=== PATIENT | female | born 1965 | race Caucasian/White ===

== ENCOUNTER → 2019-04-06 15:21 | Outpatient (CLI) | payer OTHER, SELFPAY ==
[2019-04-06 17:50] LABS: Absolute Lymphocyte Count 1.89 X10^3/uL (0.83-4.51); Absolute Neutrophil Count 2.4 X10^3/uL (2.0-7.7); Basophil# 0.03 X10^3/uL; Basophil% 0.6 % (0-1); Eosinophil# 0.31 X10^3/uL; Eosinophils% 5.9 % (0-5); Hematocrit 47.1 % (37-47); Hemoglobin 15.6 g/dL (12.0-15.0); Lymphocyte # 1.89 X10^3/ul (4.0); Lymphocyte % 36.1 % (19-41); Mean Corp Hgb Conc 33.1 g/dL (32-36); Mean Corpuscular Hgb 28.9 pg (27.0-32.0); Mean Corpuscular Volume 87.2 fL (81-99); Mean Platelet Vol. 10.3 fl (6.2-12.0); Monocyte# 0.57 X10^3/uL; Monocyte% 10.9 % (0-10); NRBC Flagged by Analyzer 0 % (0-5); Neutrophil # 2.41 X10^3/uL (2.7-7.7); Neutrophil % 46.1 % (47-70); Platelet Count 274 K/mm3 (150-450); RBC Distribution Width CV 13.6 % (11.6-14.6); RBC Distribution Width SD 43.1 fl (35.1-43.9); White Blood Count 5.2 K/mm3 (4.4-11.0)
[2019-04-06 18:11] LABS: AST(SGOT) 21 U/L (15-37); Alanine Aminotransfer ALT/SGPT 41 U/L (13-56); Albumin, Serum 4.3 g/dL (3.2-5.0); Alkaline Phosphatase 110 U/L (45-117); Anion Gap 3 (5-15); BUN 9 mg/dL (7-18); BUN/Creat Ratio 13.6 RATIO (10-20); Calcium,Total 9.6 mg/dL (8.5-10.1); Chloride 95 mmol/L (98-107); Creatinine, Serum 0.66 mg/dL (0.55-1.02); EST Glomerular Filtration Rate 98 mL/min (>60); Est Glom Filt Rate - Afr Amer 119 mL/min (>60); Globulin 4.3 g/dL (2.2-4.2); Glucose 80 mg/dL (74-106); Potassium 4.4 mmol/L (3.5-5.1); Protein, Total 8.6 g/dL (6.4-8.2); Sodium Level 129 mmol/L (136-145)
[2019-04-08 20:07] LABS: HEPATITIS B SURFACE AG Negative (Negative); Hepatitis A AB, Total Positive (Negative); Hepatitis A IgM Antibody Negative (Negative); Hepatitis B Core AB IgM Negative (Negative); Hepatitis B Core Ab Total Negative (Negative); Hepatitis C Ab 0.2 s/co ratio (0.0-0.9); QNTFERON TB Mitogen Value > 10.00 IU/mL (.); QNTFERON TB Nil Value 0.04 IU/mL (.); QNTFERON TB1+ Ag Value 0.04 IU/mL (.); QNTFERON TB2+ Ag Value 0.04 IU/mL (.)
[2019-04-08 20:27] LABS: Hep B Surface Antibodies Non Reactive (.); QNTIFERON TB Positive Criteria Negative (Negative)
== END ==
LOC: MTLAB 15:28
PROVIDERS: PCP Family Medicine; Referring Provider Dermatology; Visit Provider Dermatology
DX: L93.0 Discoid lupus erythematosus (principal); I73.00 Raynaud's syndrome without gangrene
CPT/HCPCS: 36415; 80053; 85025; 86480; 86704; 86705; 86706; 86708; 86709; 86803; 87340

== ENCOUNTER → 2019-05-19 16:25 | Outpatient (CLI) | payer OTHER, SELFPAY ==
[2019-05-19 17:56] LABS: Absolute Lymphocyte Count 1.87 X10^3/uL (0.83-4.51); Absolute Neutrophil Count 3.3 X10^3/uL (2.0-7.7); Basophil# 0.02 X10^3/uL; Basophil% 0.3 % (0-1); Eosinophil# 0.11 X10^3/uL; Eosinophils% 1.9 % (0-5); Hematocrit 44.1 % (37-47); Hemoglobin 14.2 g/dL (12.0-15.0); Lymphocyte # 1.87 X10^3/ul (4.0); Lymphocyte % 32.6 % (19-41); Mean Corp Hgb Conc 32.2 g/dL (32-36); Mean Corpuscular Hgb 28.3 pg (27.0-32.0); Mean Platelet Vol. 9.9 fl (6.2-12.0); Monocyte# 0.48 X10^3/uL; Monocyte% 8.4 % (0-10); NRBC Flagged by Analyzer 0 % (0-5); Neutrophil # 3.25 X10^3/uL (2.7-7.7); Neutrophil % 56.6 % (47-70); Platelet Count 259 K/mm3 (150-450); RBC Distribution Width CV 14.8 % (11.6-14.6); RBC Distribution Width SD 47.8 fl (35.1-43.9); Red Blood Count 5.01 M/mm3 (4.2-5.4); White Blood Count 5.7 K/mm3 (4.4-11.0)
[2019-05-19 18:43] LABS: AST(SGOT) 21 U/L (15-37); Alanine Aminotransfer ALT/SGPT 33 U/L (13-56); Alkaline Phosphatase 103 U/L (45-117); Anion Gap 7 (5-15); Bilirubin, Direct 0.11 mg/dL (0.00-0.30); CPK Total, Creatine Kinase 53 U/L (26-192); Chloride 100 mmol/L (98-107); Potassium 3.7 mmol/L (3.5-5.1); Sodium Level 134 mmol/L (136-145)
[2019-05-21 23:47] LABS: Anti-Jo <0.2 AI (0.0-0.9)
[2019-05-21 23:51] LABS: Aldolase 4.1 U/L (3.3-10.3)
== END ==
PROVIDERS: PCP Family Medicine; Referring Provider Dermatology; Visit Provider Dermatology
DX: M33.12 Other dermatomyositis with myopathy (principal)
CPT/HCPCS: 36415; 80051; 80076; 82085; 82550; 85025; 86235

== ENCOUNTER → 2023-07-17 | Outpatient (CLI) | payer OTHER, SELFPAY ==
--- NOTE | 2023-07-17 14:14 | NEURO ---
NCS and/or EMG Patient Report Ordering Doctor: Jose Salcedo DATE OF SERVICE: 07/17/23 Clinical Summary: 58 year old female with symptoms of numbness and tingling in the bilateral lower extremities - but most pronounced distally (i.e. feet). No history of foot drop. Nerve Conduction Studies Summary: The left sural distal latency was prolonged bilaterally. The left superficial peroneal SNAP was absent. The left peroneal-EDB CMAP distal latency is prolonged with reduced amplitude diffusely. The left peroneal motor conduction velocity is reduced diffusely. Needle Examination Summary: Needle examination of select muscles of the bilateral lower extremities demonstrated a higher proportion of motor unit action potentials with reduced recruitment, increased amplitude, increased duration, and polyphasia in the bilateral tibialis anterior and peroneus longus muscles bilaterally. 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 Chronic neurogenic changes seen in the bilateral tibialis anterior and peroneus longus muscles can be seen in the setting, but are not definitively diagnostic, of bilateral L5 radiculopathies. There is no definite electrodiagnostic evidence of a large-fiber peripheral polyneuropathy. Multi Select Codes Neurology Neurology Interp Codes: 29234-58 Musc test done w/n test comp (interp) (2) and 40839-66 Nrv cndj test 7-8 studies (interp)
== END | disposition home or self-care (01) ==
LOC: PSN 11:58
PROVIDERS: PCP Family Medicine; Referring Provider Family Medicine; Visit Provider Family Medicine
DX: G62.9 Polyneuropathy, unspecified (principal)
CPT/HCPCS: 95886; 95910

== ENCOUNTER → 2023-07-23 | Outpatient (CLI) | payer OTHER, SELFPAY ==
--- NOTE | 2023-07-23 14:50 | NEURO ---
NCS and/or EMG Patient Report Ordering Doctor: Jose Salcedo DATE OF SERVICE: 07/23/23 Edith presents for electrodiagnostic testing of the upper limbs. She reports intermittent pain from the elbow to the hand bilaterally. Electrodiagnostic Findings: Median motor nerve demonstrates normal distal latency, amplitude and conduction velocity bilaterally. Ulnar motor response demonstrates normal distal latency, amplitude and conduction velocity bilaterally. Normal median and ulnar F?waves. Needle EMG testing was performed in the upper limbs. All muscles tested showed no evidence of denervation with normal motor unit action potentials. Electrodiagnostic impression: This is a normal electrodiagnostic study of the upper limbs. There is no electrodiagnostic evidence for peripheral neuropathy, including carpal tunnel or cubital tunnel syndrome. There is no electrodiagnostic evidence for cervical radiculopathy. Multi Select Codes Neurology Neurology Interp Codes: 57502-75 Musc test done w/n test comp (interp) (2) and 84900-35 Nrv cndj test 13/> studies (interp)
== END | disposition home or self-care (01) ==
LOC: PSN 13:48
PROVIDERS: PCP Family Medicine; Referring Provider Family Medicine; Visit Provider Family Medicine
DX: G62.9 Polyneuropathy, unspecified (principal)
CPT/HCPCS: 95886; 95913

== ENCOUNTER → 2024-12-22 | Outpatient (CLI) | payer OTHER, SELFPAY ==
[2024-12-22 10:40] LABS: Hematocrit 43.2 % (37-47); Hemoglobin 14.4 g/dL (12.0-15.0); Mean Corp Hgb Conc 33.3 g/dL (32-36); Mean Corpuscular Volume 82.1 fL (81-99); Mean Platelet Vol. 10.8 fl (6.2-12.0); Platelet Count 279 K/mm3 (150-450); RBC Distribution Width CV 16.9 % (11.6-14.6); RBC Distribution Width SD 50.7 fl (35.1-43.9); Red Blood Count 5.26 M/mm3 (4.2-5.4); White Blood Count 5.1 K/mm3 (4.4-11.0)
[2024-12-22 12:30] LABS: AST(SGOT) 29 U/L (<=31); Alanine Aminotransfer ALT/SGPT 23 U/L (<=34); Albumin, Serum 4.6 g/dL (3.4-4.8); Alkaline Phosphatase 119 U/L (35-104); Anion Gap 14 (5-15); BUN 15 mg/dL (4-19); BUN/Creat Ratio 19.9 RATIO (10-20); Calcium,Total 9.7 mg/dL (7.6-11.0); Carbon Dioxide 22.3 mmol/L (21.0-32.0); Chloride 93 mmol/L (98-108); Cholesterol 230 mg/dL (<=200); Globulin 3.9 g/dL (2.2-4.2); Glucose 87 mg/dL (70-99); Low Density Lipoprotein Calc. 118 mg/dL; Magnesium 2.1 mg/dL (1.5-2.2); Potassium 4.4 mmol/L (3.3-5.1); Triglycerides 72 mg/dL; Very Low Density Lipoprotein 14 mg/dL (5-40); Vitamin B12 402 pg/mL (180-914); cholesterol:hdl ratio screen 2.36
[2024-12-25 22:07] LABS: Folate, Hemolysate Test 502.0 ng/mL (Not Estab.); Folate, RBC (Hct) Test 46.4 % (34.0-46.6); Folates, RBC Test 1082 ng/mL (>498); VITAMIN B6 5.6 ug/L (3.4-65.2); Vitamin B1, Thiamine 88.5 nmol/L (66.5-200.0)
[2024-12-27 14:08] LABS: ANTINUCLEAR ANTIBODIES DIRECT Positive (Negative); Anti-Chromatin 0.2 AI (0.0-0.9); Anti-Jo <0.2 AI (0.0-0.9); Anti-dsDNA Ab 2 IU/mL (0-9); SJOGREN'S Anti-SS-A test > 8.0 AI (0.0-0.9); SJOGREN'S Anti-SS-B test 3.8 AI (0.0-0.9); Vitamin D 1,25-Dihydroxy 31.0 pg/mL (24.8-81.5)
== END | disposition home or self-care (01) ==
LOC: MTLAB 08:18
PROVIDERS: PCP Physician Assistant Medical; Referring Provider Psychiatry & Neurology Neurology; Visit Provider Psychiatry & Neurology Neurology
DX: R20.2 Paresthesia of skin (principal); G62.9 Polyneuropathy, unspecified; I67.9 Cerebrovascular disease, unspecified
CPT/HCPCS: 36415; 80053; 80061; 82607; 82652; 82747; 83735; 83883; 84207; 84425; 84443; 85014; 85027; 85652; 86038; 86225; 86235

== ENCOUNTER → 2024-12-27 | Outpatient (CLI) | payer OTHER, SELFPAY ==
--- NOTE | 2024-12-27 09:50 | MRI_ITS ---
PROCEDURE: SPINE CERVICAL (ROUTINE) 12/27/2024 REASON FOR EXAM: NECK PAIN; POSSIBLE RADICULOPATHY TECHNIQUE: Procedure Code: MRISPC Modality: MR Procedure: SPINE CERVICAL (ROUTINE) Multiplanar and multisequence images were obtained without IV contrast administration. COMPARISON: None. FINDINGS: C2-C3: Vertebral bodies: Negative. Disk Space: Disc desiccation. Mild loss of disc height. Negative for Modic changes. Facet Joints: Mild bilateral facet joint hypertrophy. Neural foramina: Negative for neural foraminal narrowing Spinal Canal: Negative for central spinal narrowing. C3-C4: Vertebral bodies: Negative. Disk Space: Disc desiccation. Mild diffuse disc bulge. Negative for Modic changes. Facet Joints: Moderate left and mild right facet joint hypertrophy. Neural foramina: Moderate left and mild right neural foraminal narrowing Spinal Canal: Mild central spinal narrowing. C4-C5: Vertebral bodies: Negative. Disk Space: Disc desiccation. Mild diffuse disc bulge. Negative for Modic changes. Facet Joints: Moderate left and minimal right facet joint hypertrophy. Neural foramina: Moderate left and mild right neural foraminal narrowing Spinal Canal: Mild left central spinal narrowing. C5-C6: Vertebral bodies: Negative. Disk Space: Disc desiccation. Mild loss of disc height. Negative for Modic changes. Facet Joints: Moderate left and mild right facet joint hypertrophy. Neural foramina: Mild left and minimal right neural foraminal narrowing Spinal Canal: Negative for central spinal narrowing. C6-C7: Vertebral bodies: Negative. Disk Space: Disc desiccation. Mild diffuse disc bulge. Negative for Modic changes. Facet Joints: Mild bilateral facet joint hypertrophy. Neural foramina: Mild bilateral neural foraminal narrowing Spinal Canal: Mild central spinal narrowing. Spinal cord: Negative Posterior fossa and cerebellar tonsils negative. MRI/Spine Cervical (Routine) IMPRESSION: Multilevel degenerative changes of the cervical spine asymmetric to the left at C3-C4, C4-C5 and C5-C6 as above. Reading Location: [place] [id number]
--- NOTE | 2024-12-27 09:50 | MRI_ITS ---
PROCEDURE: SPINE CERVICAL (ROUTINE) 12/27/2024 REASON FOR EXAM: NECK PAIN; POSSIBLE RADICULOPATHY TECHNIQUE: Procedure Code: MRISPC Modality: MR Procedure: SPINE CERVICAL (ROUTINE) Multiplanar and multisequence images were obtained without IV contrast administration. COMPARISON: None. FINDINGS: C2-C3: Vertebral bodies: Negative. Disk Space: Disc desiccation. Mild loss of disc height. Negative for Modic changes. Facet Joints: Mild bilateral facet joint hypertrophy. Neural foramina: Negative for neural foraminal narrowing Spinal Canal: Negative for central spinal narrowing. C3-C4: Vertebral bodies: Negative. Disk Space: Disc desiccation. Mild diffuse disc bulge. Negative for Modic changes. Facet Joints: Moderate left and mild right facet joint hypertrophy. Neural foramina: Moderate left and mild right neural foraminal narrowing Spinal Canal: Mild central spinal narrowing. C4-C5: Vertebral bodies: Negative. Disk Space: Disc desiccation. Mild diffuse disc bulge. Negative for Modic changes. Facet Joints: Moderate left and minimal right facet joint hypertrophy. Neural foramina: Moderate left and mild right neural foraminal narrowing Spinal Canal: Mild left central spinal narrowing. C5-C6: Vertebral bodies: Negative. Disk Space: Disc desiccation. Mild loss of disc height. Negative for Modic changes. Facet Joints: Moderate left and mild right facet joint hypertrophy. Neural foramina: Mild left and minimal right neural foraminal narrowing Spinal Canal: Negative for central spinal narrowing. C6-C7: Vertebral bodies: Negative. Disk Space: Disc desiccation. Mild diffuse disc bulge. Negative for Modic changes. Facet Joints: Mild bilateral facet joint hypertrophy. Neural foramina: Mild bilateral neural foraminal narrowing Spinal Canal: Mild central spinal narrowing. Spinal cord: Negative Posterior fossa and cerebellar tonsils negative. MRI/Spine Cervical (Routine) IMPRESSION: Multilevel degenerative changes of the cervical spine asymmetric to the left at C3-C4, C4-C5 and C5-C6 as above. Reading Location: [place] [id number]
--- NOTE | 2024-12-27 11:07 | MRI_ITS ---
PROCEDURE: SPINE LUMBAR (ROUTINE) 12/27/2024 REASON FOR EXAM: LOW BACK PAIN; BILATERAL LUMBAR RADICULOPATHIES TECHNIQUE: T1, T2, stir, procedure Code: MRISPL Modality: MR Procedure: SPINE LUMBAR (ROUTINE) COMPARISON: None FINDINGS: The vertebral body alignment is maintained. There is 20% anterior compression deformity at T12 with chronic features. The lumbar vertebral body height is maintained. There is Modic fibrotic type endplate change at L4-5. Vertebral body marrow signal is otherwise normal. Intervertebral disc signal shows desiccation. The facets are aligned. The L1-L2 level: There is no significant disk protrusion. There is no lateral recess stenosis or foraminal stenosis. There is no critical central canal stenosis. The L2-L3 level: There is mild central and right and left paracentral disk protrusion. There is no lateral recess stenosis or foraminal stenosis. There is no critical central canal stenosis. The L3-L4 level: There is mild central, mild left paracentral, and left eccentric disk protrusion with increased signal in the margin of the disc consistent with a fissure. There is mild left lateral recess effacement. There is mild left foraminal stenosis. There is no critical central canal stenosis. The L4-L5 level: There is mild central and right and left paracentral disk protrusion. There is mild right lateral recess effacement. There is mild bilateral foraminal stenosis. There is no critical central canal stenosis. The L5-S1 level: There is mild central and right and left paracentral disk protrusion with increased signal in the margin of the disc consistent with a fissure. There is no lateral recess stenosis or foraminal stenosis. There is no critical central canal stenosis. The visualized conus shows normal signal characteristics. Adjacent soft tissues are unremarkable. MRI/Spine Lumbar (Routine) IMPRESSION: There is 20% anterior compression deformity at T12 with chronic features. There is no central canal stenosis, with lateral recess and foraminal narrowing . [facility]
--- NOTE | 2024-12-27 12:49 | ART_ITS ---
Reason For Study Reason For Study: Absent Lt Pedal Pulses Procedure A bilateral lower extremity continuous wave Doppler with analog waveform analysis and ankle brachial indexes. Left Segmental Pressures Left brachial= 170mmHg. Left posterior tibial artery = 89mmHg. Left dorsalis pedis artery = 89mmHg. Left digit = 82 mmHg. The left posterior tibial artery waveforms are biphasic. The left dorsalis pedis waveforms are biphasic. Right Segmental Pressures Right brachial= 166mmHg. Right posterior tibial artery = 179mmHg. Right dorsalis pedis artery = 180mmHg. Right digit = 128 mmHg. The right posterior tibial artery waveforms are triphasic. The right dorsalis pedis waveforms are triphasic. Indices The right ankle brachial index by the posterior tibial artery is 1.05. The right ankle brachial index by the dorsalis pedis is 1.06. The right digital-brachial index is 0.75. The left ankle brachial index by the posterior tibial artery is 0.52. The left ankle brachial index by the dorsalis pedis is 0.52. The left digital-brachial index is 0.48. VL/Ankle Brachial Index Interpretation Summary Triphasic Doppler waveforms are noted at ankle level on the right. Biphasic Dop pler waveforms are noted at ankle level on the left. Pulse-volume recordings appear diminished at ankle and digital lev el on the left. The resting right ankle- brachial index is normal. The resting left ankle-brachial index is moderately d iminished. The right digital-brachial index is normal. The left digital-brachial index is moderately diminished. There is no evidence of significant arterial occlusive disease in the right low er extremity. 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 Ordering Physician: Obdulia Wan Referring Physician: MEGAN FARAH MD Performed By: Vincenzo Jose RVT
== END | disposition home or self-care (01) ==
LOC: MRI 09:41
PROVIDERS: PCP Physician Assistant Medical; Referring Provider Psychiatry & Neurology Neurology; Visit Provider Psychiatry & Neurology Neurology
DX: M54.2 Cervicalgia (principal); M54.16 Radiculopathy, lumbar region; I73.9 Peripheral vascular disease, unspecified
CPT/HCPCS: 72141; 72148; 93922

== ENCOUNTER → 2025-01-06 | Outpatient (CLI) | payer OTHER, SELFPAY ==
--- OUTSIDE RECORDS SUMMARY | 2025-01-06 08:27 | XMS RPT_ITS | CCD ---
Author Organization [facility] Care Team Providers Care Ground Water Contractor Name Role Phone Jose Salcedo MD Unavailable Jose Salcedo MD Unavailable (Sams), Chris Khan Dermatology Unavailable Anurag microcomputer support specialist, . . Unavailable [facility] Unavailable Nicolasa SAFETY AND OCCUPATIONAL HEALTH MANAGER, Carleen Unavailable Jose R RAY, Rena Abreu Unavailable Emigdio SAFETY AND OCCUPATIONAL HEALTH MANAGER, Yenifer E Unavailable Unavailable Todd LORA, Taryn Unavailable Unavailable Tong SAFETY AND OCCUPATIONAL HEALTH MANAGER, Ceci Unavailable Unavailable Cat Rondon Unavailable Unavailable Alcon RN, Merissa L Unavailable Unavail able Lee SAFETY AND OCCUPATIONAL HEALTH MANAGER, Kulwant Unavailable Unavailable Reno EDWARDS, Evy Madrid Unavailable Unavaila ble Mutersbaugh SAFETY AND OCCUPATIONAL HEALTH MANAGER, Marivel K Unavailable Unavai luis Anguiano PA-C, Arabella Abreu Unavailable [phone] Liana SAFETY AND OCCUPATIONAL HEALTH MANAGER, Miranda Dunn Unavailable Unavailab evelin Yeh MA, Kulwant Unavailable Unavailable Odalis SAFETY AND OCCUPATIONAL HEALTH MANAGER, Marely Unavailable Unavailable Unavailable Unavailable Santana SAFETY AND OCCUPATIONAL HEALTH MANAGER, Eugenio Unavailable Unavailable Neurology Provider Unavailable Unavailable Dr. Jose Salcedo Primary Care Provider Dr. Jose Salcedo Referring Provider Dr. Jose Salcedo Other Provider Dr. Aj Julio Attending Provider [phone] Dr. Armen Rocha Attending Provider [phone] Amisha Godoy MD Unavailable BEREKET FLETCHER MD Primary Care Unavailable JOSE SALCEDO Consulting Unavailable BEREKET FLETCHER MD Admitting Unavailable BEREKET FLETCHER MD Attending Unavailable PROVIDER, UNKNOWN Consulting Unavailable PROVIDER, UNKNOWN Consulting Unavailable PROVIDER, UNKNOWN Consulting Unavailable JSOE SALCEDO Primary Care Unavailable JOSE SALCEDO Admitting Unavailable JOSE SALCEDO Attending Unavailable JOSE SALCEDO Consulting Unavailable PROVIDER, UNKNOWN Consulting Unavailable PROVIDER, UNKNOWN Consulting Unavailable PROVIDER, UNKNOWN Consulting Unavailable BEREKET FLETCHER MD Primary Care Unavailable BEREKET FLETCHER MD Admitting Unavailable JOSE SALCEDO Consulting Unavailable BEREKET FLETCHER MD Attending Unavailable PROVIDER, UNKNOWN Consulting Unavailable PROVIDER, UNKNOWN Consulting Unavailable PROVIDER, UNKNOWN Consulting Unavailable VACCARIELLO, AMISHA Attending Unavailable VACCARIELLO, AMISHA Primary Care Unavailable VACCARIELLO, AMISHA Admitting Unavailable JOSE SALCEDO Consulting Unavailable PROVIDER, UNKNOWN Consulting Unavailable PROVIDER, UNKNOWN Consulting Unavailable PROVIDER, UNKNOWN Consulting Unavailable KULWANT WAN Attending Unavailable KULWANT WAN Referring Unavailable KULWANT WAN Primary Care Unavailable JOSE SALCEDO Primary Care Unavailable BRANDI CONTRERAS Referring Unavailable JOSE SALCEDO Primary Care Unavailable BRANDI CONTRERAS Attending Unavailable Dr. Jose Salcedo MD Primary Care Physician Dr. Jose Salcedo MD Referring Provider Dr. Megan Farah MD Attending Physician Megan Farah Referring Unavailable Megan Farah Attending Unavailable Kulwant Jackson Primary Care Unavailable Megan Farah Attending Unavailable Kulwant Jackson Primary Care Unavailable Megan Farah Referring Unavailable Megan Farah Attending Unavailable Kulwant Jackson Primary Care Unavailable Megan Farah Referring Unavailable Megan Farah Attending Unavailable Jose Salcedo Referring Unavailable Jose Salcedo Primary Care Unavailable Allergies Allergy Classification Reported Allergen(s) Allergy Type Date of Onset Reaction(s) Facility Brompheniramine / Phenylephrine (3 sources) Brompheniramine / Phenylephrine Drug Allergy Itching, Difficulty breathing [facility] Doxycycline (3 sources) Doxycycline Drug Allergy [facility] Propofol (3 sources) Propofol Drug Allergy [facility] (20 sources) Brompheniramine / Phenylephrine Drug Allergy Itching, Difficulty breathing [facility].; [facility]. (20 sources) Doxycycline Drug Allergy 5 Rash [facility].; [facility]. (20 sources) Propofol Drug Allergy 5 Hives, Rash [employer]. (20 sources) Influenza Virus Vaccine *VACCINES* [facility].; [facility]. (1 source) Doxycycline Drug Allergy [facility] (1 source) Propofol Drug Allergy [facility] (1 source) COLD MEDICINE PLUS Drug allergy (disorder) [facility] (1 source) gabapentin Drug Allergy 5 Other [facility] Comment on above: Patient stated it m akes me feel like I was drunk (1 source) Doxycycline Drug Allergy 5 [facility] (1 source) gabapentin Drug Allergy 5 [facility] (1 source) Propofol Drug Allergy 5 [facility] Repository Medications Current Medications Medication Drug Class(es) Dates Sig (Normalized) Sig (Original) ALPRAZolam 1 mg oral tablet (20 sources) Benzodiazepine Start: 12-13-2024 take 1 tablet by mouth three times daily as needed Start: 09-27-2024 Xanax 1 mg tab let ; 1 Tablet tid for 0 days Quantity: 30 {Tablet} Refills: 0 Ordered: 27-Sep-2024 MD Jose Salcedo Start: 27-Sep-2024 Comments: 07/13/2024 Start: 08-25-2024 Xanax 1 mg tab let ; 1 Tablet tid for 0 days Quantity: 30 {Tablet} Refills: 0 Ordered: 25-Aug-2024 MD Jose Salcedo Start: 25-Aug-2024 Comments: 07/13/2024 Start: 09-19-2023 Xanax 1 mg tab let ; 1 Tablet tid for 0 days Quantity: 30 {Tablet} Refills: 0 Ordered: 13-Jul-2024 MD Jose Salcedo Start: 13-Jul-2024 Comments: [facility]07/13/2024 Start: 07-21-2023 Xanax 1 mg tab let ; 1 Tablet tid for 0 days Quantity: 30 {Tablet} Refills: 0 Ordered: 21-Jul-2023 MD Jose Salcedo Start: 21-Jul-2023 Comments: [facility]07/21/2023 Start: 02-18-2022 take 1 tablet by nell th three times daily Xanax 1 MG Oral Tablet ; 1 Tablet tid for 0 days Quantity: 30 {Tablet} Refills: 0 Ordered: 18-Feb-2022 MD Jose Salcedo Start: 18-Feb-2022 Comments: [facility] 02/18/2022w Comment on above: [facility] 02/18/2022 [facility]07/21/2023 [facility]104/04/2023 [facility]/13/2024 citalopram 10 mg oral tablet (20 sources) Serotonin Reuptake Inhibitor Start: End: take 1 tablet by mouth once daily Citalopram 10 mg tablet Discontinued 10 mg PO daily December 13, 2024 12:00am December 14, 2024 4:14pm Start: 10-18-2024 CeleXA 10 mg t ablet ; 1 Tablet qd for 0 days Quantity: 90 {Tablet} Refills: 0 Ordered: 18-Oct-2024 MD Amisha Godoy Start: 18-Oct-2024 Start: 02-03-2024 End: 07-13-2024 CeleXA 10 mg tablet ; 1 Tabl et qd for 0 days Quantity: 90 {Tablet} Refills: 1 Ordered: 13-Jul-2024 CL Howard Start: 03-Feb-2024 End: 13-Jul-2024 Status: Discontinued Start: 09-19-2023 CeleXA 10 mg t ablet ; 1 Tablet qd for 0 days Quantity: 90 {Tablet} Refills: 1 Ordered: 19-Sep-2023 MD Jose Salcedo Start: 19-Sep-2023 Start: 04-30-2023 CeleXA 10 mg t ablet ; 1 Tablet qd for 0 days Quantity: 90 {Tablet} Refills: 1 Ordered: 30-Apr-2023 MD Amisha Godoy Start: 30-Apr-2023 cyclobenzaprine hydrochlorid e 10 mg oral tablet (20 sources) Muscle Relaxant Start: 12-13-2024 take 1 tablet by mouth three times daily as needed Start: 09-27-2024 cyclobenzaprin e 10 mg tablet ; 1 (one) Tablet tid prn back pain for 0 days Quantity: 30 {Tablet} Refills: 0 Ordered: 27-Sep-2024 MD Jose Salcedo Start: 27-Sep-2024 Start: 08-20-2024 cyclobenzaprin e 10 mg tablet ; 1 (one) Tablet tid prn back pain for 0 days Quantity: 30 {Tablet} Refills: 0 Ordered: 20-Aug-2024 FLOR Rondon Start: 20-Aug-2024 Start: 05-04-2024 cyclobenzaprin e 10 mg tablet ; 1 (one) Tablet tid prn back pain for 0 days Quantity: 30 {Tablet} Refills: 0 Ordered: 13-Jul-2024 MD Jose Salcedo Start: 13-Jul-2024 Start: 02-03-2024 cyclobenzaprin e 10 mg tablet ; 1 (one) Tablet tid prn back pain for 0 days Quantity: 30 {Tablet} Refills: 0 Ordered: 03-Feb-2024 MD Jose Salcedo Start: 03-Feb-2024 Start: 09-19-2023 cyclobenzaprin e 10 mg tablet ; 1 (one) Tablet tid prn back pain for 0 days Quantity: 30 {Tablet} Refills: 0 Ordered: 24-Nov-2023 MD Jose Salcedo Start: 24-Nov-2023 Start: 01-31-2023 End: 05-30-2023 cyclobenzaprine 10 mg tablet ; 1 (one) Tablet tid prn back pain for 0 days Quantity: 10 {Tablet} Refills: 0 Ordered: 30-May-2023 MD Jose Salcedo Start: 31-Jan-2023 End: 30-May-2023 Status: Inactive DULoxetine 30 mg delayed release oral capsule (1 source) Serotonin and Norepinephrine Reuptake Inhibitor Start: 12-14-2024 take 1 capsule by mouth at bedtime Start: 12-14-2024 take 1 capsule by mouth at bed time fluconazole 150 mg oral tablet (5 sources) Azole Antifungal Start: 09-27-2024 fluconazole 1 50 mg tablet ; 1 (one) tablet at onset of yeast symptoms for 0 days Quantity: 1 {Tablet} Refills: 2 Ordered: 27-Sep-2024 MD Jose Salcedo Start: 27-Sep-2024 sodium chloride 1000 mg oral tablet (2 sources) Start: 12-13-2024 Start: 12-13-2024 End: 12-13-2024 Sodium Chloride 1,000 mg tab let,soluble Discontinued 1000 mg PO 1 to 4 times daily as needed December 13, 2024 12:00am December 13, 2024 9:22am 7 tablets take 3 tab daily started on 12-13-24 triamcinolone acetonide 1 mg /ml topical cream (14 sources) Corticosteroid Start: 12-13-2024 Start: 07-13-2024 apply 1 g topically twice daily as needed triamcinolone acetonide 0.1 % topical ointment ; 1 (one) gram apply bid prn for 0 days Quantity: 454 {Gram} Refills: 2 Ordered: 13-Jul-2024 MD Jose Salcedo Start: 13-Jul-2024 Completed/Discontinued Medications Medication Drug Class(es) Dates Sig (Normalized) Sig (Original) amLODIPine 10 mg oral tablet (20 sources) Dihydropyridine Calcium Channel Shoshana Start: 11-24-2023 End: 07-13-2024 amLODIPine 10 mg tablet ; 1 (one) Tablet qd for 0 days Quantity: 90 {Tablet} Refills: 1 Ordered: 13-Jul-2024 CL Howard Start: 24-Nov-2023 End: 13-Jul-2024 Status: Discontinued Start: 09-19-2023 amLODIPine 10 mg tablet ; 1 (one) Tablet qd for 0 days Quantity: 90 {Tablet} Refills: 1 Ordered: 19-Sep-2023 MD Jose Salcedo Start: 19-Sep-2023 Start: 04-30-2023 amLODIPine 10 mg tablet ; 1 (one) Tablet qd for 0 days Quantity: 90 {Tablet} Refills: 1 Ordered: 30-Apr-2023 MD Amisha Godoy Start: 30-Apr-2023 amoxicillin 875 mg / clavulanate 125 mg oral tablet (20 sources) Penicillin-class Antibacterial Start: 07-21-2023 End: 07-31-2023 amoxicillin 875 mg-potassium clavulanate 125 mg tablet ; 1 (one) tablet two times daily for 10 days Quantity: 20 {Tablet} Refills: 0 Ordered: 21-Jul-2023 CL Gaines Miranda Dunn Start: 21-Jul-2023 End: 31-Jul-2023 Status: Inactive azithromycin 250 mg oral tablet (20 sources) Macrolide Antimicrobial Start: 01-14-2011 End: 07-08-2011 ZITHROMAX Z-PRABHAKAR, 250MG (Oral Tablet) ; 2 (two) Tabs day one, then one daily for 4 days for 0 days Quantity: 1 {Z-pack} Refills: 0 Ordered: 08-Jul-2011 MD Jose Salcedo Start: 14-Jan-2011 End: 08-Jul-2011 Status: Inactive cephalexin 500 mg oral capsule (20 sources) Cephalosporin Antibacterial Start: 01-03-2020 End: 01-13-2020 take 2 capsules by mouth twice daily Cephalexin 500 MG Oral Capsule ; 2 (two) Capsule bid for 10 days Quantity: 40 {Capsule} Refills: 0 Ordered: 03-Jan-2020 MD Jose Salcedo Start: 03-Jan-2020 End: 13-Jan-2020 Status: Inactive lisinopril 20 mg oral tablet (20 sources) Angiotensin Converting Enzyme Inhibitor Start: 11-24-2018 End: 05-03-2019 take 1 tablet by mouth once daily Lisinopril 20 MG Oral Tablet ; 1 (one) Tablet daily for 0 days Quantity: 90 {Tablet} Refills: 3 Ordered: 03-May-2019 MD Jose Salcedo Start: 24-Nov-2018 End: 03-May-2019 Status: Inactive Problems Active Problems Problem Classification Problem Date Documented Da te Episodic/Chronic Administrative/social admission (20 sources) Issue of repeat prescriptions 02-22-2019 Episodic Allergic reactions (20 sources) Inflammatory dermatosis; Translations: [Dermatitis, unspecified] 09-21-2021 Episodic Anxiety disorders (20 sources) Anxiety; Translations: [Anxiety disorder, unspecified] Onset: 12-06-2024 10-14-2022 Chronic Essential hypertension (20 sources) Benign essential hypertension; Translations: [Essential (primary) hypertension] Onset: 12-06-2024 10-14-2022 Chronic Fluid and electrolyte disorders (20 sources) Hyponatremia; Translations: [Hypo-osmolality and hyponatremia] 10-14-2022 Episodic Genitourinary symptoms and ill-defined conditions (20 sources) Female stress incontinence; Translations: [Stress incontinence (female) (male)] 10-14-2022 Chronic Immunizations and screening for infectious disease (20 sources) Requires measles, mumps and rubella vaccination; Translations: [Encounter for immunization] 02-22-2019 Episodic Malaise and fatigue (20 sources) Malaise and fatigue; Translations: [Other malaise] 02-22-2019 Episodic Mood disorders (20 sources) Depressive disorder; Translations: [Depressive disorder, not elsewhere classified] 02-22-2019 Chronic Mood disorders (1 source) Mood disorders; Translations: [Depression, unspecified] Onset: 12-06-2024 Mycoses (10 sources) Candidiasis of vagina; Translations: [Candidiasis of vulva and vagina] 09-27-2024 Episodic Nonmalignant breast conditions (20 sources) Lump in left breast; Translations: [Unspecified lump in the left breast, unspecified quadrant] 10-14-2022 Episodic Other aftercare (20 sources) Long-term (current) use of other medications 02-22-2019 Episodic Other and ill-defined cerebrovascular disease (2 sources) Cerebrovascular disease; Translations: [Cerebrovascular disease, unspecified] 12-13-2024 Chronic Other and ill-defined cerebrovascular disease (2 sources) Cerebrovascular disease, unspecified; Translations: [Cerebrovascular disease, unspecified] Onset: 12-13-2024 Chronic Other and unspecified benign neoplasm (20 sources) Polyp of colon; Translations: [Polyp of colon] 10-14-2022 Episodic Other circulatory disease (20 sources) Elevated blood pressure reading without diagnosis of hypertension 11-28-2010 Episodic Other circulatory disease (1 source) Foot pulse absent; Translations: [Other specified symptoms and signs involving the circulatory and respiratory systems] 12-13-2024 Episodic Other circulatory disease (1 source) Other specified symptoms and signs involving the circulatory and respiratory systems; Translations: [Other specified symptoms and signs involving the circulatory and respiratory systems] Onset: 12-27-2024 Episodic Other ear and sense organ disorders (20 sources) Impacted cerumen in left ear; Translations: [Impacted cerumen, left ear] 02-01-2019 Episodic Other gastrointestinal disorders (20 sources) Stool DNA-based colorectal cancer screening positive; Translations: [Other fecal abnormalities] 11-12-2019 Episodic Other injuries and conditions due to external causes (20 sources) At risk for falls ; Translations: [History of falling] 09-19-2023 Episodic Other injuries and conditions due to external causes (20 sources) Injury of left foot; Translations: [Unspecified injury of left foot, initial encounter] 11-16-2023 Episodic Other nervous system disorders (20 sources) Neuropathy; Translations: [Polyneuropathy, unspecified] 05-30-2023 Chronic Other nervous system disorders (1 source) Polyneuropathy; Translations: [Polyneuropathy, unspecified] 12-13-2024 Chronic Other nervous system disorders (2 sources) Paresthesia; Translations: [Paresthesia of skin] 12-13-2024 Episodic Other nervous system disorders (2 sources) Paresthesia of skin; Translations: [Paresthesia of skin] Onset: 12-27-2024 Episodic Other non-traumatic joint disorders (1 source) Pain in right knee; Translations: [Pain in right knee] Onset: 09-22-2024 Episodic Other non-traumatic joint disorders (1 source) Effusion, right knee; Translations: [Effusion, right knee] Onset: 09-22-2024 Episodic Other screening for suspected conditions (not mental disorders or infectious disease) (20 sources) Breast neoplasm screening status; Translations: [Encounter for screening mammogram for malignant neoplasm of breast] Onset: 12-06-2024 10-14-2022 Episodic Other skin disorders (20 sources) Eruption; Translations: [Rash and other nonspecific skin eruption] 02-22-2019 Episodic Other upper respiratory infections (20 sources) Sinusitis; Translations: [Chronic sinusitis, unspecified] 01-03-2020 Chronic Other upper respiratory infections (20 sources) Acute sinusitis; Translations: [Acute sinusitis, unspecified] 02-22-2019 Episodic Otitis media and related conditions (20 sources) Disorder of left tympanic membrane; Translations: [Unspecified disorder of tympanic membrane, left ear] 02-22-2019 Episodic Peripheral and visceral atherosclerosis (1 source) Peripheral vascular disease, unspecified; Translations: [Peripheral vascular disease, unspecified] Onset: 12-27-2024 Chronic Residual codes; unclassified (20 sources) Influenza vaccination declined; Translations: [Immunization not carried out because of patient refusal] 10-14-2022 Episodic Residual codes; unclassified (20 sources) Mammogram declined; Translations: [Procedure and treatment not carried out because of patient's decision for unspecified reasons] 10-14-2022 Episodic Rheumatoid arthritis and related disease (1 source) Rheumatoid arthritis with rheumatoid factor of multiple sites without organ or systems involvement; Translations: [Rheumatoid arthritis with rheumatoid factor of multiple sites without organ or systems involvement] Onset: 12-06-2024 Chronic Screening and history of mental health and substance abuse codes (20 sources) Patient encounter status; Translations: [Encounter for screening for depression] 10-14-2022 Episodic Spondylosis; intervertebral disc disorders; other back problems (20 sources) Low back pain; Translations: [Lumbago] Onset: 12-27-2024 10-14-2022 Episodic Substance-related disorders (20 sources) Tobacco dependence syndrome; Translations: [Nicotine dependence, unspecified, uncomplicated] Onset: 12-06-2024 10-14-2022 Chronic Unclassified (20 sources) Number of Children 02-28-2020 Comment on above: 1. Unclassified (20 sources) Number of Pregnancies 02-28-2020 Comment on above: 1. Unclassified (20 sources) Vaginal deliveries 02-28-2020 Comment on above: 1. Unclassified (20 sources) Follow Up for Multiple Chronic Conditions - The patient is here for follow-up of anxiety and hypertension. The patient always takes the prescribed medications. No side effects noted (does not need refills). The patient has an active lifestyle but no regular exercise program. The patient's out of office blood pressure checks occur occasionally and dietary compliance is fairly good usually adhering to recommendations. The patient states that there is no recent angina or dyspnea, weight has decreased (down 13 pounds) and headaches are rarely noted. 03-04-2022 Unclassified (20 sources) Follow Up for Multiple Chronic Conditions - The patient is here for follow-up of anxiety and hypertension. The patient always takes the prescribed medications. No side effects noted (needs refills). The patient has low activity level and no regular exercise program. The patient's out of office blood pressure checks occur occasionally and dietary compliance is fairly good usually adhering to recommendations. The patient states that there is no recent angina or dyspnea (had chest pain 2 days ago but had extreme stress at the time. Is doing well now.), weight has increased (up 6 pounds) and they do not have headaches. Note for Multiple chronic conditions follow-up: reviewed by [facility] 10-17-2020 Unclassified (20 sources) Follow up for multiple chronic conditions - The patient is here for follow-up of anxiety and hypertension. The patient always takes the prescribed medications. No side effects noted (would like printed Rx's to take with her). The patient has low activity level and no regular exercise program. The patient's out of office blood pressure checks occur rarely and dietary compliance is fairly good usually adhering to recommendations. The patient states that there is no recent angina or dyspnea, there are no vision changes or weakness, weight has decreased (9lbs), depression has worsened (would like to discuss getting back on an anti-depressant. Was previously taken off her depression medication due to being put on a medication for lupus but is no longer taking the medication for lupus, so she would like to start back on anti-depressant.) and they do not have headaches. Note for Multiple chronic conditions follow-up: reviewed by [facility] 09-24-2019 Unclassified (20 sources) [ADDITIONAL REASON] Transition into care - The patient is transitioning into care from another physician (03/2019 Dermatology, 09/10/[address] Vora) and a summary of care was reviewed. 09-24-2019 Unclassified (20 sources) Follow Up for Multiple Chronic Conditions - The patient is here for follow-up of hypertension and depression. The patient always takes the prescribed medications. No side effects noted (Needs refills.). The patient engages in regular exercise program 3-5 times per week (walks). The patient's out of office blood pressure checks occur occasionally (134/84 was last home reading.) and dietary compliance is fairly good usually adhering to recommendations. The patient states that weight has decreased (Down 5 pounds.), in general mood has improved and headaches have been noticed occasionally. Note for Multiple chronic conditions follow-up: reviewed by [facility] 10-05-2013 Unclassified (20 sources) [ADDITIONAL REASON] Cold Symptoms - Symptoms include sneezing, nasal congestion, runny nose, purulent discharge, ear fullness, sore throat (improved), productive cough, chills, general malaise and headache, but do not include fever. The onset was sudden 4 day(s) ago. The symptoms occur constantly. The patient describes this as moderate in severity and worsening. Note for Upper respiratory infection: reviewed by [facility] 10-05-2013 Unclassified (20 sources) Follow Up for Multiple Chronic Conditions - The patient is here for follow-up of hypertension and depression. The patient always takes the prescribed medications. No side effects noted (Needs refills.). The patient has an active lifestyle but no regular exercise program. The patient's out of office blood pressure checks occur rarely and dietary compliance is fairly good usually adhering to recommendations. The patient states that weight has increased (Up 5 pounds.), in general mood has improved and headaches have been noticed occasionally. Note for Multiple chronic conditions follow-up: reviewed by [facility] 01-22-2012 Unclassified (20 sources) Follow Up for Multiple Chronic Conditions - The patient is here for follow-up of depression. The patient always takes the prescribed medications. No side effects noted. The patient has an active lifestyle but no regular exercise program. The patient states that mood is unchanged (Has had increased stress since February.). Note for Follow Up for Multiple Chronic Conditions: Pt is under a great deal of family stress yet is only on 1/2 citalopram tab and generally only takes 1 xanax per day. 11-28-2010 Unclassified (20 sources) Follow up for multiple chronic conditions - The patient is here for follow-up of anxiety and hypertension. The patient always takes the prescribed medications. No side effects noted. The patient has low activity level and no regular exercise program. The patient states that the disease has moderate impact on recreation. Note for Multiple chronic conditions follow-up: Pt needs referral neurology per Rheumatology reviewed by [facility] 05-30-2023 Unclassified (9 sources) Transition into care - The patient is transitioning into care from another physician (03/2019 Dermatology, 09/10/[address] Vora) and a summary of care was reviewed. 09-24-2019 Unclassified (9 sources) [ADDITIONAL REASON] Follow up for multiple chronic conditions - The patient is here for follow-up of anxiety and hypertension. The patient always takes the prescribed medications. No side effects noted (would like printed Rx's to take with her). The patient has low activity level and no regular exercise program. The patient's out of office blood pressure checks occur rarely and dietary compliance is fairly good usually adhering to recommendations. The patient states that there is no recent angina or dyspnea, there are no vision changes or weakness, weight has decreased (9lbs), depression has worsened (would like to discuss getting back on an anti-depressant. Was previously taken off her depression medication due to being put on a medication for lupus but is no longer taking the medication for lupus, so she would like to start back on anti-depressant.) and they do not have headaches. Note for Multiple chronic conditions follow-up: reviewed by [facility] 09-24-2019 Unclassified (14 sources) Cold Symptoms - Symptoms include sneezing, nasal congestion, runny nose, purulent discharge, ear fullness, sore throat (improved), productive cough, chills, general malaise and headache, but do not include fever. The onset was sudden 4 day(s) ago. The symptoms occur constantly. The patient describes this as moderate in severity and worsening. Note for Upper respiratory infection: reviewed by [facility] 10-05-2013 Unclassified (14 sources) [ADDITIONAL REASON] Follow Up for Multiple Chronic Conditions - The patient is here for follow-up of hypertension and depression. The patient always takes the prescribed medications. No side effects noted (Needs refills.). The patient engages in regular exercise program 3-5 times per week (walks). The patient's out of office blood pressure checks occur occasionally (134/84 was last home reading.) and dietary compliance is fairly good usually adhering to recommendations. The patient states that weight has decreased (Down 5 pounds.), in general mood has improved and headaches have been noticed occasionally. Note for Multiple chronic conditions follow-up: reviewed by [facility] 10-05-2013 Unclassified (1 source) Low back pain, unspecified; Translations: [Low back pain, unspecified] Onset: 12-27-2024 Past or Other Problems Problem Classification Problem Date Documented Da te Episodic/Chronic Unclassified (20 sources) Well Adult, female - The patient feels well with minor complaints (continues with low back pain. Has been improving slightly. Going to chiropractor.), has good energy level and is sleeping well. The patient has a balanced diet and takes no supplemental vitamins & iron. The patient does not exercise. The patient sleeps 7 hours per night. Note for Well Adult, female: reviewed by [facility] 10-14-2022 Unclassified (20 sources) Rash - The rash has been occurring for 1 day. The rash is characterized as red. The rash was first seen on the trunk, the back and the lower extremity. There has been associated itching. Note for Rash: Had colonoscopy yesterday and rash started at 4pm. Otherwise no new meds or skin care products. Has has 2 other colonoscopies in the past without issue. Had a similar reaction to doxycycline 1 year ago and her derm (Dr. Ivey) gave her a shot of triamcinolone.No trouble breathing or swallowing. 09-21-2021 Unclassified (20 sources) Well Adult, female - The patient feels well with minor complaints (fell down steps last week, continues with back pain.), has good energy level and is sleeping well. The patient has a balanced diet and takes no supplemental vitamins & iron. The patient does not exercise. The patient sleeps 8 hours per night. 06-25-2021 Unclassified (20 sources) Well adult female - The patient does not feel well (she has lupus. Some days is having alot of body pain/aches.), has decreased energy level and is sleeping well (will have trouble sleeping some nights but takes xanax and that will help her sleep). The patient has a balanced diet and takes no supplemental vitamins & iron. The patient does not exercise. The patient sleeps 8 (at least 8 hours a night) hours per night. Note for Well adult female: Package Winder is recommending patient to have pap test.Patient had a colonoscopy in November, during which they found multiple polyps, and she was told to follow up for another colonoscopy in 6 months.Patient's last mammogram was in 2019. Patient refuses mammogram today.Patient is due for a dental cleaning and annual eye exam. 02-28-2020 Unclassified (20 sources) Cold Symptoms - Symptoms include nasal congestion, runny nose, ear fullness (ear pressure and ears sore), scratchy throat (irritated), hoarseness, general malaise, headache and facial pain (sinus pain and pressure), but do not include dry cough or fever. The onset was 5 day(s) ago. The symptoms occur constantly. The patient describes this as unchanged. Current treatment includes Aleve. Medical history includes seasonal allergies and recurrent sinusitis. Note for Upper respiratory infection: Has red sore spots on the roof of her mouth. reviewed by [facility] 01-03-2020 Unclassified (20 sources) Ear fullness - L ear feels plugged. Was here a few weeks back and instructed to use ear drops. Has went through 3 bottles with no relief. She seen derm 1 week ago and informed she has skin lupus around her ear. She had a spot removed from her hand and the Brand Marketing Specialist feels she may have a lesion in her ear behind the wax causing her issues as well. reviewed by [facility] 02-22-2019 Unclassified (20 sources) Ear - Patient is here today with a concern of left ear fullness and pressure for the past 2 weeks. Is getting worse. Denies having ear pain. Does feel sinus pressure on the left side of face. Neck and shoulder hurts. Denies having other cold symptoms. Has decreased hearing. Has a roaring sound of the left ear. reviewed by [facility] 02-01-2019 Unclassified (20 sources) Well Adult, female - The patient feels well with minor complaints, has decreased energy level (has increased stress) and is sleeping well. The patient has a balanced diet and takes no supplemental vitamins & iron. The patient does not exercise. The patient sleeps 7 hours per night. Note for Well Adult, female: She recently had some skin bxs at derm and is awaiting results. 11-24-2018 Unclassified (20 sources) Rash - The rash has been occurring in a persistent pattern for 1 month (About 2 months ago, pt had a sunburn. Noticed a harder whitish lump on the left side of anterior chest. About 1 month ago, started to have a few more raised red areas with spreading redness of the chest). The course has been increasing. The rash is characterized as red. It spread to the neck. There has been associated itching (when are is exposed to heat or if she is nervous). Note for Rash: Usually uses Marquez natural bar soap and lotion. Did try a different bar soap but then went to back to the bar soap she was originally using.Has tried apply lotion, rubbing alcohol and antibiotic suave to the chest. reviewed by [facility] 11-04-2018 Unclassified (20 sources) Well Adult, female - The patient feels well with minor complaints (Is concerned about elevated blood pressures. Has had increased stress.), has decreased energy level and is sleeping well. The patient has a balanced diet and takes no supplemental vitamins & iron. The patient does not exercise. The patient sleeps 7 hours per night. Note for Well Adult, female: reviewed by [facility] 11-12-2017 Unclassified (20 sources) Well Adult, female - The patient feels well with minor complaints (Pt here for well adult. Had parti al hysterectomy in 2008 and no periods since then. Pt has been fasting. Last Lipid/CMP was 09/2015. Pts concern today is that she has urinary frequency and leaking of urine. Has to wear a pad daily. When she urinates she has quite a bit of abdomnal pressure and takes awhile for her to completely empty bladder. Urine today was normal.). The first day of the last menstrual period was : (2008.). The patient is not using any method of contraception at this time. The patient has a balanced diet and takes no supplemental vitamins & iron. The patient exercises none (but does enjoy ealking some.). The patient sleeps 8 hours per night. 10-28-2016 Unclassified (20 sources) Well Adult, female - The patient feels well with minor complaints, has good energy level and is sleeping well (has a hard time falling asleep). The patient has a balanced diet and takes no supplemental vitamins & iron. The patient exercises daily (walks). The patient sleeps 6 hours per night. Note for Well Adult, female: Has been taking half doses of medication. reviewed by [facility] 08-30-2015 Unclassified (20 sources) Rash - The onset of the rash has been gradual and has been occurring in a persistent pattern for 3 days. Note for Rash: Pt states that she has been itching and burning on left buttock. Does have scally dried area on upper left buttock with very tiny red spots scattered. States that she had shingles about 10 years ago and was afraid she was getting them again. Rash does not bother pt during day except for some slight itching but is worse at night with itching and burning. Has been using vicks vapor rub to area which does help the itching. She either felt she just has some dry skin back there ofr start og shingles. reviewed by [facility] 06-04-2013 Unclassified (20 sources) Cold Symptoms - Symptoms include sneezing, nasal congestion, runny nose, productive cough (Productive of thick yellow sputum and blowing out the same.), fever (Never actually took temperature but has had the chills and sweats.) and general malaise. The onset was sudden 10 day(s) ago (Started mainly with s/t and earache but no longer have those.). The patient describes this as worsening. Current treatment includes none (but has been using something similiar to a Aspen Pot.). Risk factors include smoking. Note for Upper respiratory infection: No previous history of getting these very often. reviewed by [facility] 01-29-2013 Unclassified (20 sources) ER F/U - Pt here for ER f/u due to malaise and faitgue. BP also elevated. BP today is 176/103. Is not currently on any BP medication. Pt thinks she may have a bug. Had been coughing some phlegm- clear and nasal congestion and s/twhich started about 2 weeks. Still is not feeling up to par. Still coughing and still has some nasal congestion and drainage. No fever today. 96.8 .May have had fever 2 weeks ago but didn't take temp. Son is similarly ill. 01-14-2011 Unclassified (20 sources) Recheck neuropathy - Complains of tingling and numbness in both arms and legs and getting worse. Asking for referral to neurology. She gets 2-3 spells per week where she gets pain starting in hands and feet then move up proximally stopping at about the level of knees and elbows. It last for 6-8 hrs. No known triggers. 06-30-2023 Unclassified (20 sources) Well adult female - The patient feels well with no complaints. The patient has a balanced diet. The patient does not exercise. The patient sleeps 8 hours per night. 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 She said her feet hurt very bad, and she has arthritis in her hip and back. All of her joints hurt but yet she was told its not a rheumatologic disorder Patient said she has seen Rheumatology and neurology and never seems to get an answer She has not yet applied for disability. She is worked up and embarrassed and she has worked her whole life She also wants a refill of triamcinolone acetonide ointment 0.1% cream, she got it from a different doctor years ago and she likes using it on spots she gets from time to time reviewed by [facility] 07-13-2024 Results Test Name Value Interpretation Reference Range Facility MARIA VICTORIA w/ Reflex Mult Confirmon 12-27-2024 MARIA VICTORIA,DIRECT Positive Abnormal Negative [facility] Comment on above: Performed By: #### L 100.0500, L500.4050, L3100.1725, L500.4100, L101.9900, L501.5200, L3300.8000, L3300.0960, L3300.8200, L501.9520, L3100.5450, L3130.0010, L503.0106 #### [facility] [address] [place], [place], [phone] ANTI-DNA (DS)AB 2 IU/mL Normal 0-9 [facility] Comment on above: Result Comment: Nega tive <5 Equivocal 5 - 9 Positive >9 Performed By: #### L 100.0500, L500.4050, L3100.1725, L500.4100, L101.9900, L501.5200, L3300.8000, L3300.0960, L3300.8200, L501.9520, L3100.5450, L3130.0010, L503.0106 #### [facility] [address] [place], [address] ANTI-SS-A > 8.0 High 0.0-0.9 [facility] Comment on above: Performed By: #### L 100.0500, L500.4050, L3100.1725, L500.4100, L101.9900, L501.5200, L3300.8000, L3300.0960, L3300.8200, L501.9520, L3100.5450, L3130.0010, L503.0106 #### [facility] [address] [place], [address] ANTI-SS-B 3.8 AI High 0.0-0.9 [facility] Comment on above: Performed By: #### L 100.0500, L500.4050, L3100.1725, L500.4100, L101.9900, L501.5200, L3300.8000, L3300.0960, L3300.8200, L501.9520, L3100.5450, L3130.0010, L503.0106 #### [facility] [address] [place], [address] Ankle Brachial Indexon 12-27 Ankle Brachial Index [facility] [address] [place] [address] Ankle Brachial Index 12/27/24 1258 MR#: [id number] Acct: [id number] Name: KLAUS HERNANDEZ Rep #: [id number] : 1965 59 From: Aris Gauthier MD Attending Dr: Dr. Megan Farah MD Status: R EG CLI Ordering Dr: Megan Farah MD Date: 12/27/24 Location: MRI Sex: F C Admitted: Reason For Study Reason For Study: Absent Lt Pedal Pulses Procedure A bilateral lower extremity continuous wave Doppler with analog waveform analysis and ankle brachial indexes. Left Segmental Pressures Left brachial= 170mmHg. Left posterior tibial artery = 89mmHg. Left dorsalis pedis artery = 89mmHg. Left digit = 82 mmHg. The left posterior tibial artery waveforms are biphasic. The left dorsalis pedis waveforms are biphasic. Right Segmental Pressures Right brachial= 166mmHg. Right posterior tibial artery = 179mmHg. Right dorsalis pedis artery = 180mmHg. Right digit = 128 mmHg. The right posterior tibial artery waveforms are triphasic. The right dorsalis pedis waveforms are triphasic. Indices The right ankle brachial index by the posterior tibial artery is 1.05. The right ankle brachial index by the dorsalis pedis is 1.06. The right digital-brachial index is 0.75. The left ankle brachial index by the posterior tibial artery is 0.52. The left ankle brachial index by the dorsalis pedis is 0.52. The left digital-brachial index is 0.48. VL/Ankle Brachial Index Interpretation Summary Triphasic Doppler waveforms are noted at ankle level on the right. Biphasic Doppler waveforms are noted at ankle level on the left. Pulse-volume recordings appear diminished at ankle and digital level on the left. The resting right ankle- brachial index is normal. The resting left ankle-brachial index is moderately diminished. The right digital-brachial index is normal. The left digital-brachial index is moderately diminished. There is no evidence of significant arterial occlusive disease in the right lower extremity. 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 Ordering Physician: Kulwant Wan Referring Physician: MEGAN FARAH MD Performed By: Vincenzo Jose, Anne 12/27/241626 Date Aris Gauthier MD CC: Dr. Megan Farah MD; JONG Menon Date Dictated: 12/27/24 1258 Date Transcribed: 12/27/241626 Technical Inspector: Signed Normal [facility] Spine Cervical (Routine)on Spine Cervical (Routine) [facility] [address] [place], [place] [id number] Spine Cervical (Routine) MR#: [id number] Acct: [id number] Name: KLAUS HERNANDEZ Rep #: [id number] : 1965 F 59 From: Ruben Dugan MD PCP: JONG Menon Status: REG CLI Study: Spine Cervical (Routine) Date of Exam: Exam# [id number] Ordering Dr: Megan Farah MD PROCEDURE: SPINE CERVICAL (ROUTINE) 12/27/2024 REASON FOR EXAM: NECK PAIN; POSSIBLE RADICULOPATHY TECHNIQUE: Procedure Code: MRISPC Modality: MR Procedure: SPINE CERVICAL (ROUTINE) Multiplanar and multisequence images were obtained without IV contrast administration. COMPARISON: None. FINDINGS: C2-C3: Vertebral bodies: Negative. Disk Space: Disc desiccation. Mild loss of disc height. Negative for Modic changes. Facet Joints: Mild bilateral facet joint hypertrophy. Neural foramina: Negative for neural foraminal narrowing Spinal Canal: Negative for central spinal narrowing. C3-C4: Vertebral bodies: Negative. Disk Space: Disc desiccation. Mild diffuse disc bulge. Negative for Modic changes. Facet Joints: Moderate left and mild right facet joint hypertrophy. Neural foramina: Moderate left and mild right neural foraminal narrowing Spinal Canal: Mild central spinal narrowing. C4-C5: Vertebral bodies: Negative. Disk Space: Disc desiccation. Mild diffuse disc bulge. Negative for Modic changes. Facet Joints: Moderate left and minimal right facet joint hypertrophy. Neural foramina: Moderate left and mild right neural foraminal narrowing Spinal Canal: Mild left central spinal narrowing. C5-C6: Vertebral bodies: Negative. Disk Space: Disc desiccation. Mild loss of disc height. Negative for Modic changes. Facet Joints: Moderate left and mild right facet joint hypertrophy. Neural foramina: Mild left and minimal right neural foraminal narrowing Spinal Canal: Negative for central spinal narrowing. C6-C7: Vertebral bodies: Negative. Disk Space: Disc desiccation. Mild diffuse disc bulge. Negative for Modic changes. Facet Joints: Mild bilateral facet joint hypertrophy. Neural foramina: Mild bilateral neural foraminal narrowing Spinal Canal: Mild central spinal narrowing. Spinal cord: Negative Posterior fossa and cerebellar tonsils negative. MRI/Spine Cervical (Routine) IMPRESSION: Multilevel degenerative changes of the cervical spine asymmetric to the left at C3-C4, C4-C5 and C5- C6 as above. Reading Location: [place] [address] CC: Dr. Megan Farah MD; JONG Menon Technical Inspector: Signed Normal [facility] Spine Lumbar (Routine)on Spine Lumbar (Routine) [facility] Imaging Services [address] [place] [id number] Spine Lumbar (Routine) MR#: [id number] Acct: [id number] Name: KLAUS HERNANDEZ Rep #: [id number] : 1965 F 59 From: Gómez May MD PCP: JONG Menon Status: REG CLI Study: Spine Lumbar (Routine) Date of Exam: 12/27/24 Exam# [id number] Ordering Dr: Megan Farah MD PROCEDURE: SPINE LUMBAR (ROUTINE) 12/27/2024 REASON FOR EXAM: LOW BACK PAIN; BILATERAL LUMBAR RADICULOPATHIES TECHNIQUE: T1, T2, stir, procedure Code: MRISPL Modality: MR Procedure: SPINE LUMBAR (ROUTINE) COMPARISON: None FINDINGS: The vertebral body alignment is maintained. There is 20% anterior compression deformity at T12 with chronic features. The lumbar vertebral body height is maintained. There is Modic fibrotic type endplate change at L4-5. Vertebral body marrow signal is otherwise normal. Intervertebral disc signal shows desiccation. The facets are aligned. The L1-L2 level: There is no significant disk protrusion. There is no lateral recess stenosis or foraminal stenosis. There is no critical central canal stenosis. The L2-L3 level: There is mild central and right and left paracentral disk protrusion. There is no lateral recess stenosis or foraminal stenosis. There is no critical central canal stenosis. The L3-L4 level: There is mild central, mild left paracentral, and left eccentric disk protrusion with increased signal in the margin of the disc consistent with a fissure. There is mild left lateral recess effacement. There is mild left foraminal stenosis. There is no critical central canal stenosis. The L4-L5 level: There is mild central and right and left paracentral disk protrusion. There is mild right lateral recess effacement. There is mild bilateral foraminal stenosis. There is no critical central canal stenosis. The L5-S1 level: There is mild central and right and left paracentral disk protrusion with increased signal in the margin of the disc consistent with a fissure. There is no lateral recess stenosis or foraminal stenosis. There is no critical central canal stenosis. The visualized conus shows normal signal characteristics. Adjacent soft tissues are unremarkable. MRI/Spine Lumbar (Routine) IMPRESSION: There is 20% anterior compression deformity at T12 with chronic features. There is no central canal stenosis, with lateral recess and foraminal narrowing. Reading Location: [facility] CC: Dr. Megan Farah MD; JONG Menon Technical Inspector: Signed Normal [facility] Vitamin D 1,25-Dihydroxyon 1 VIT D 1,25 DIHY 31.0 pg/mL Normal 24.8-81.5 [facility] Comment on above: Performed By: #### L 100.0500, L500.4050, L3100.1725, L500.4100, L101.9900, L501.5200, L3300.8000, L3300.0960, L3300.8200, L501.9520, L3100.5450, L3130.0010, L503.0106 ####[facility] [address] [place], [place], [phone](332) Folates, RBCon 12-25-2024 Fol.,Hemolysate 502.0 ng/mL Normal Not Estab. [facility] Comment on above: Order Comment: Test( s) 190671-Cgemxxa B6was developed and its performance characteristicsdetermined by [employer]. It has not been cleared or approvedby the Food and Drug Administration. Performed By: #### L 100.0500, L500.4050, L3100.1725, L500.4100, L101.9900, L501.5200, L3300.8000, L3300.0960, L3300.8200, L501.9520, L3100.5450, L3130.0010, L503.0106 ####[facility] [address] [place], [place], [phone]) Folate, RBC 1082 ng/mL Normal >498 [facility] Comment on above: Order Comment: Test( s) 157640-Wwbbfkg B6was developed and its performance characteristicsdetermined by [employer]. It has not been cleared or approvedby the Food and Drug Administration. Performed By: #### L 100.0500, L500.4050, L3100.1725, L500.4100, L101.9900, L501.5200, L3300.8000, L3300.0960, L3300.8200, L501.9520, L3100.5450, L3130.0010, L503.0106 ####[facility] [address] [place], [place], [phone] Hematocrit (Bld) [Volume fraction] 46.4 % Normal 34.0-46.6 [facility] Comment on above: Order Comment: Test( s) 565179-Nqaoziz B6was developed and its performance characteristicsdetermined by [employer]. It has not been cleared or approvedby the Food and Drug Administration. Performed By: #### L 100.0500, L500.4050, L3100.1725, L500.4100, L101.9900, L501.5200, L3300.8000, L3300.0960, L3300.8200, L501.9520, L3100.5450, L3130.0010, L503.0106 ####[facility] [address] [place], [address] [place] Lambda Light Chainson 12-25-2024 FR KAPPA LT CHN 38.5 mg/L Abnormal 3.3-19.4 [facility] Comment on above: Order Comment: Test( s) 533395-Fcjohcr B6was developed and its performance characteristicsdetermined by [employer]. It has not been cleared or approvedby the Food and Drug Administration. Performed By: #### L 100.0500, L500.4050, L3100.1725, L500.4100, L101.9900, L501.5200, L3300.8000, L3300.0960, L3300.8200, L501.9520, L3100.5450, L3130.0010, L503.0106 ####[facility] [address] [place], [place], [phone] FR LAMBDA LT CH 25.3 mg/L Normal 5.7-26.3 [facility] Comment on above: Order Comment: Test( s) 680339-Qrxkmhd B6was developed and its performance characteristicsdetermined by [employer]. It has not been cleared or approvedby the Food and Drug Administration. Performed By: #### L 100.0500, L500.4050, L3100.1725, L500.4100, L101.9900, L501.5200, L3300.8000, L3300.0960, L3300.8200, L501.9520, L3100.5450, L3130.0010, L503.0106 ####[facility] [address] [place], [place], [phone] KAPPA/LAMBDA % 1.52 Normal 0.26-1.65 [facility] Comment on above: Order Comment: Test( s) [id number]-Quivoxn B6was developed and its performance characteristicsdetermined by [employer]. It has not been cleared or approvedby the Food and Drug Administration. Performed By: #### L 100.0500, L500.4050, L3100.1725, L500.4100, L101.9900, L501.5200, L3300.8000, L3300.0960, L3300.8200, L501.9520, L3100.5450, L3130.0010, L503.0106 ####[facility] [address] [place], [place], [id number] L3300.8200on 12-25-2024 VITAMIN B6 5.6 ug/L Normal 3.4-65.2 [facility] Comment on above: Order Comment: Test( s) 967784-Txlrkgh B6was developed and its performance characteristicsdetermined by [employer]. It has not been cleared or approvedby the Food and Drug Administration. Result Comment: Defi ciency: <3.4 Marginal: 3.4 - 5.1 Adequate: >5.1 Performed By: #### L 100.0500, L500.4050, L3100.1725, L500.4100, L101.9900, L501.5200, L3300.8000, L3300.0960, L3300.8200, L501.9520, L3100.5450, L3130.0010, L503.0106 ####[facility] [address] [place], [place], [id number] Vitamin B1, Thiamineon 12-25 VIT B1 THIAMINE 88.5 nmol/L Normal 66.5-200.0 [facility] Comment on above: Order Comment: Test( s) 979795-Rfcfmee B6was developed and its performance characteristicsdetermined by [employer]. It has not been cleared or approvedby the Food and Drug Administration. Result Comment: Perf ormed at: [address] [id number] [employer] Engineer: Clinton Saavedra PhD, Phone: [phone] Performed at: [address] [id number] [employer] Engineer: Jose Medellin MD, Phone: [phone] Performed By: #### L 100.0500, L500.4050, L3100.1725, L500.4100, L101.9900, L501.5200, L3300.8000, L3300.0960, L3300.8200, L501.9520, L3100.5450, L3130.0010, L503.0106 ####[facility] [address] [place], [address] CBC-Complete Blood Cnt No Di ffon 12-22-2024 Erythrocyte distribution width (RBC) [Ratio] 16.9 % High 11.6-14.6 [facility] Comment on above: Performed By: #### L 100.0500, L500.4050, L3100.1725, L500.4100, L101.9900, L501.5200, L3300.8000, L3300.0960, L3300.8200, L501.9520, L3100.5450, L3130.0010, L503.0106 #### [facility] [address] [place], [place], [id number] Hematocrit (Bld) [Volume fraction] 43.2 % Normal 37-47 [facility] Comment on above: Performed By: #### L 100.0500, L500.4050, L3100.1725, L500.4100, L101.9900, L501.5200, L3300.8000, L3300.0960, L3300.8200, L501.9520, L3100.5450, L3130.0010, L503.0106 #### [facility] [address] [place], [address] (084) Hemoglobin (Bld) [Mass/Vol] 14.4 g/dL Normal 12.0-15.0 [facility] Comment on above: Performed By: #### L 100.0500, L500.4050, L3100.1725, L500.4100, L101.9900, L501.5200, L3300.8000, L3300.0960, L3300.8200, L501.9520, L3100.5450, L3130.0010, L503.0106 #### [facility] [address] [place], [address] MCH (RBC) [Entitic mass] 27.4 pg Normal 27.0-32.0 [facility] Comment on above: Performed By: #### L 100.0500, L500.4050, L3100.1725, L500.4100, L101.9900, L501.5200, L3300.8000, L3300.0960, L3300.8200, L501.9520, L3100.5450, L3130.0010, L503.0106 #### [facility] [address] [place], [address] (614) MCHC (RBC) [Mass/Vol] 33.3 g/dL Normal 32-36 [facility] Comment on above: Performed By: #### L 100.0500, L500.4050, L3100.1725, L500.4100, L101.9900, L501.5200, L3300.8000, L3300.0960, L3300.8200, L501.9520, L3100.5450, L3130.0010, L503.0106 #### [facility] [address] [place], [address] MCV (RBC) [Entitic vol] 82.1 fL Normal 81-99 [facility] Comment on above: Performed By: #### L 100.0500, L500.4050, L3100.1725, L500.4100, L101.9900, L501.5200, L3300.8000, L3300.0960, L3300.8200, L501.9520, L3100.5450, L3130.0010, L503.0106 #### [facility] [address] [place], [address] ([phone] Platelet mean volume (Bld) [Entitic vol] 10.8 fL Normal 6.2-12.0 [facility] Comment on above: Performed By: #### L 100.0500, L500.4050, L3100.1725, L500.4100, L101.9900, L501.5200, L3300.8000, L3300.0960, L3300.8200, L501.9520, L3100.5450, L3130.0010, L503.0106 #### [facility] [address] [place], [address] Platelets (Bld) [#/Vol] 279 10*3/uL Normal 150-450 [facility] Comment on above: Performed By: #### L 100.0500, L500.4050, L3100.1725, L500.4100, L101.9900, L501.5200, L3300.8000, L3300.0960, L3300.8200, L501.9520, L3100.5450, L3130.0010, L503.0106 #### [facility] [address] [place], [address] RBC (Bld) [#/Vol] 5.26 10*6/uL Normal 4.2-5.4 [facility] Comment on above: Performed By: #### L 100.0500, L500.4050, L3100.1725, L500.4100, L101.9900, L501.5200, L3300.8000, L3300.0960, L3300.8200, L501.9520, L3100.5450, L3130.0010, L503.0106 #### [facility] [address] [place], [address] RDW SD 50.7 fl High 35.1-43.9 [facility] Comment on above: Performed By: #### L 100.0500, L500.4050, L3100.1725, L500.4100, L101.9900, L501.5200, L3300.8000, L3300.0960, L3300.8200, L501.9520, L3100.5450, L3130.0010, L503.0106 #### [facility] [address] [place], [address] WBC (Bld) [#/Vol] 5.1 10*3/uL Normal 4.4-11.0 [facility] Comment on above: Performed By: #### L 100.0500, L500.4050, L3100.1725, L500.4100, L101.9900, L501.5200, L3300.8000, L3300.0960, L3300.8200, L501.9520, L3100.5450, L3130.0010, L503.0106 #### [facility] [address] [place], [address] ( Comprehensive Metabolic Prof ilon 12-22-2024 Albumin [Mass/Vol] 4.6 g/dL Normal 3.4-4.8 [facility] Comment on above: Performed By: #### L 100.0500, L500.4050, L3100.1725, L500.4100, L101.9900, L501.5200, L3300.8000, L3300.0960, L3300.8200, L501.9520, L3100.5450, L3130.0010, L503.0106 #### [facility] [address] [place], [place], [phone] Albumin/Globulin [Mass ratio] 1.2 {ratio} Normal 0.9-2.4 [facility] Comment on above: Performed By: #### L 100.0500, L500.4050, L3100.1725, L500.4100, L101.9900, L501.5200, L3300.8000, L3300.0960, L3300.8200, L501.9520, L3100.5450, L3130.0010, L503.0106 #### [facility] [address] [place], [address] ALK PHOS 119 U/L High 35-104 [facility] Comment on above: Performed By: #### L 100.0500, L500.4050, L3100.1725, L500.4100, L101.9900, L501.5200, L3300.8000, L3300.0960, L3300.8200, L501.9520, L3100.5450, L3130.0010, L503.0106 #### [facility] [address] [place], [place], [id number] ALT [Catalytic activity/Vol] 23 U/L Normal <=34 [facility] Comment on above: Performed By: #### L 100.0500, L500.4050, L3100.1725, L500.4100, L101.9900, L501.5200, L3300.8000, L3300.0960, L3300.8200, L501.9520, L3100.5450, L3130.0010, L503.0106 #### [facility] [address] [place], [address] AST [Catalytic activity/Vol] 29 U/L Normal <=31 [facility] Comment on above: Performed By: #### L 100.0500, L500.4050, L3100.1725, L500.4100, L101.9900, L501.5200, L3300.8000, L3300.0960, L3300.8200, L501.9520, L3100.5450, L3130.0010, L503.0106 #### [facility] [address] [place], [place], [phone] Bilirubin [Mass/Vol] 0.31 mg/dL Normal 0.00-1.30 [facility] Comment on above: Performed By: #### L 100.0500, L500.4050, L3100.1725, L500.4100, L101.9900, L501.5200, L3300.8000, L3300.0960, L3300.8200, L501.9520, L3100.5450, L3130.0010, L503.0106 #### [facility] [address] [place], [place], [id number] BUN/CRE 19.9 RATIO Normal 10-20 [facility] Comment on above: Performed By: #### L 100.0500, L500.4050, L3100.1725, L500.4100, L101.9900, L501.5200, L3300.8000, L3300.0960, L3300.8200, L501.9520, L3100.5450, L3130.0010, L503.0106 #### [facility] [address] [place], [place], [phone] Calcium [Mass/Vol] 9.7 mg/dL Normal 7.6-11.0 [facility] Comment on above: Performed By: #### L 100.0500, L500.4050, L3100.1725, L500.4100, L101.9900, L501.5200, L3300.8000, L3300.0960, L3300.8200, L501.9520, L3100.5450, L3130.0010, L503.0106 #### [facility] [address] [place], [address] Chloride [Moles/Vol] 93 mmol/L Low 98-108 [facility] Comment on above: Performed By: #### L 100.0500, L500.4050, L3100.1725, L500.4100, L101.9900, L501.5200, L3300.8000, L3300.0960, L3300.8200, L501.9520, L3100.5450, L3130.0010, L503.0106 #### [facility] [address] [place], [place], [phone] (026) CO2 [Moles/Vol] 22.3 mmol/L Normal 21.0-32.0 [facility] Comment on above: Performed By: #### L 100.0500, L500.4050, L3100.1725, L500.4100, L101.9900, L501.5200, L3300.8000, L3300.0960, L3300.8200, L501.9520, L3100.5450, L3130.0010, L503.0106 #### [facility] [address] [place], [place], [phone] (045) Creatinine [Mass/Vol] 0.78 mg/dL Normal 0.70-1.20 [facility] Comment on above: Performed By: #### L 100.0500, L500.4050, L3100.1725, L500.4100, L101.9900, L501.5200, L3300.8000, L3300.0960, L3300.8200, L501.9520, L3100.5450, L3130.0010, L503.0106 #### [facility] [address] [place], [place], [phone] (497) GAP 14 Normal 5-15 [facility] Comment on above: Performed By: #### L 100.0500, L500.4050, L3100.1725, L500.4100, L101.9900, L501.5200, L3300.8000, L3300.0960, L3300.8200, L501.9520, L3100.5450, L3130.0010, L503.0106 #### [facility] [address] [place], [address] (608) GFR/1.73 sq M.predicted among non-blacks MDRD (S/P/Bld) [Vol rate/Area] 87 mL/min/{1.73_m2} Normal >60 [facility] Comment on above: Result Comment: mL/m in/1.73m2 CKD-EPI Creatinine Equation (2020) Performed By: #### L 100.0500, L500.4050, L3100.1725, L500.4100, L101.9900, L501.5200, L3300.8000, L3300.0960, L3300.8200, L501.9520, L3100.5450, L3130.0010, L503.0106 #### [facility] [address] [place], [address] (332) Globulin (S) [Mass/Vol] 3.9 g/dL Normal 2.2-4.2 [facility] Comment on above: Performed By: #### L 100.0500, L500.4050, L3100.1725, L500.4100, L101.9900, L501.5200, L3300.8000, L3300.0960, L3300.8200, L501.9520, L3100.5450, L3130.0010, L503.0106 #### [facility] [address] [place], [address] (781) Glucose [Mass/Vol] 87 mg/dL Normal 70-99 [facility] Comment on above: Performed By: #### L 100.0500, L500.4050, L3100.1725, L500.4100, L101.9900, L501.5200, L3300.8000, L3300.0960, L3300.8200, L501.9520, L3100.5450, L3130.0010, L503.0106 #### [facility] [address] [place], [address] Potassium [Moles/Vol] 4.4 mmol/L Normal 3.3-5.1 [facility] Comment on above: Performed By: #### L 100.0500, L500.4050, L3100.1725, L500.4100, L101.9900, L501.5200, L3300.8000, L3300.0960, L3300.8200, L501.9520, L3100.5450, L3130.0010, L503.0106 #### [facility] [address] [place], [place], [phone] (571) Sodium [Moles/Vol] 129 mmol/L Low 133-145 [facility] Comment on above: Performed By: #### L 100.0500, L500.4050, L3100.1725, L500.4100, L101.9900, L501.5200, L3300.8000, L3300.0960, L3300.8200, L501.9520, L3100.5450, L3130.0010, L503.0106 #### [facility] [address] [place], [place], [phone] (928) T PROT 8.4 g/dL Normal 5.9-8.4 [facility] Comment on above: Performed By: #### L 100.0500, L500.4050, L3100.1725, L500.4100, L101.9900, L501.5200, L3300.8000, L3300.0960, L3300.8200, L501.9520, L3100.5450, L3130.0010, L503.0106 #### [facility] [address] [place], [place], [phone] (631) Urea nitrogen [Mass/Vol] 15 mg/dL Normal 4-19 [facility] Comment on above: Performed By: #### L 100.0500, L500.4050, L3100.1725, L500.4100, L101.9900, L501.5200, L3300.8000, L3300.0960, L3300.8200, L501.9520, L3100.5450, L3130.0010, L503.0106 #### [facility] [address] [place], [place], [phone] Erythrocyte Sed Rateon 12-22 SED RATE 48 mm/hr High 0-30 [facility] Comment on above: Performed By: #### L 100.0500, L500.4050, L3100.1725, L500.4100, L101.9900, L501.5200, L3300.8000, L3300.0960, L3300.8200, L501.9520, L3100.5450, L3130.0010, L503.0106 #### [facility] [address] [place], [place], [phone] Lipid Profileon 12-22-2024 CHOL:HDL 2.36 Normal [facility] Comment on above: Performed By: #### L 100.0500, L500.4050, L3100.1725, L500.4100, L101.9900, L501.5200, L3300.8000, L3300.0960, L3300.8200, L501.9520, L3100.5450, L3130.0010, L503.0106 #### [facility] [address] [place], [place], [phone] Cholesterol [Mass/Vol] 230 mg/dL High <=200 [facility] Comment on above: Result Comment: Chol esterol level, Desirable <200 mg/dL Borderline high cholesterol 200-239 mg/dL High cholesterol >=240 mg/dL Recommendations of the NCEP Adult Treatment Panel for the following risk-cutoff thresholds for the [place] population. Performed By: #### L 100.0500, L500.4050, L3100.1725, L500.4100, L101.9900, L501.5200, L3300.8000, L3300.0960, L3300.8200, L501.9520, L3100.5450, L3130.0010, L503.0106 #### [facility] [address] [place], [place], [phone] (830) Cholesterol in HDL [Mass/Vol] 98 mg/dL Normal [facility] Comment on above: Result Comment: Deanna onal Cholesterol Education Program (NCEP) guidelines: <40 mg/dL: Low HDL-cholesterol (major risk factor for CHD) >= 60 mg/dL: High HDL-cholesterol (negative risk factor for CHD) HDL-cholesterol is affected by a number of factors, e.g. smoking, exercise, hormones, sex and age. Performed By: #### L 100.0500, L500.4050, L3100.1725, L500.4100, L101.9900, L501.5200, L3300.8000, L3300.0960, L3300.8200, L501.9520, L3100.5450, L3130.0010, L503.0106 #### [facility] [address] [place], [address] (197 Cholesterol in LDL [Mass/Vol] 118 mg/dL Normal [facility] Comment on above: Result Comment: Bord rdsflx=573-205 mg/dL Higher Iaed=545 mg/dL or greater Friedwald Equation for LDL-C Performed By: #### L 100.0500, L500.4050, L3100.1725, L500.4100, L101.9900, L501.5200, L3300.8000, L3300.0960, L3300.8200, L501.9520, L3100.5450, L3130.0010, L503.0106 #### [facility] [address] [facility] [place], [address] ([phone] Cholesterol in VLDL [Mass/Vol] 14 mg/dL Normal 5-40 [facility] Comment on above: Performed By: #### L 100.0500, L500.4050, L3100.1725, L500.4100, L101.9900, L501.5200, L3300.8000, L3300.0960, L3300.8200, L501.9520, L3100.5450, L3130.0010, L503.0106 #### [facility] [address] [place], [address] Triglyceride [Mass/Vol] 72 mg/dL Normal [facility] Comment on above: Result Comment: The drugs N-Acetylcysteine and Metamizole may falsely depress this assay. Normal range: <150 mg/dL Borderline High: 150-199 mg/dL High: 200-499 mg/dL Very High: >500 mg/dL Performed By: #### L 100.0500, L500.4050, L3100.1725, L500.4100, L101.9900, L501.5200, L3300.8000, L3300.0960, L3300.8200, L501.9520, L3100.5450, L3130.0010, L503.0106 #### [facility] [address] [place], [address] Magnesiumon 12-22-2024 Magnesium [Mass/Vol] 2.1 mg/dL Normal 1.5-2.2 [facility] Comment on above: Performed By: #### L 100.0500, L500.4050, L3100.1725, L500.4100, L101.9900, L501.5200, L3300.8000, L3300.0960, L3300.8200, L501.9520, L3100.5450, L3130.0010, L503.0106 #### [facility] [address] [place], [place], [phone] Thyroid Stim Hormone (TSH)on 12-22-2024 TSH 1.000 uIU/mL Normal 0.300-4.200 [facility] Comment on above: Performed By: #### L 100.0500, L500.4050, L3100.1725, L500.4100, L101.9900, L501.5200, L3300.8000, L3300.0960, L3300.8200, L501.9520, L3100.5450, L3130.0010, L503.0106 #### [facility] [address] [place], [place], [address] Vitamin B12on 12-22-2024 Cobalamin (Vitamin B12) [Mass/Vol] 402 pg/mL Normal 180-914 [facility] Comment on above: Performed By: #### L 100.0500, L500.4050, L3100.1725, L500.4100, L101.9900, L501.5200, L3300.8000, L3300.0960, L3300.8200, L501.9520, L3100.5450, L3130.0010, L503.0106 #### [facility] [address] [place], [place], [id number] Neurology Visit Reporton Neurology Visit Report [facility] [address], [address] [place], [place] [address] OFFICE VISIT Date of Service: 12/13/24 MR#: [id number] Acct: [id number] Name: KLAUS HERNANDEZ Rep #: [id number] : 1965 Provider: Dr. Megan bennett MD Age/Sex: 59/F Location[place] [facility] [place] Status: Signed with Addenda ADDENDUM by Dr. Megan Farah MD on 01/03/25 at 1804 Addendum Addendum (01/03/2025): The patient has discontinued the use of alcohol in November 2024. Lumbar MRI (12/27/2024): FINDINGS: The vertebral body alignment is maintained. There is 20% anterior compression deformity at T12 with chronic features. The lumbar vertebral body height is maintained. There is Modic fibrotic type endplate change at L4-5. Vertebral body marrow signal is otherwise normal. Intervertebral disc signal shows desiccation. The facets are aligned. The L1-L2 level: There is no significant disk protrusion. There is no lateral recess stenosis or foraminal stenosis. There is no critical central canal stenosis. The L2-L3 level: There is mild central and right and left paracentral disk protrusion. There is no lateral recess stenosis or foraminal stenosis. There is no critical central canal stenosis. The L3-L4 level: There is mild central, mild left paracentral, and left eccentric disk protrusion with increased signal in the margin of the disc consistent with a fissure. There is mild left lateral recess effacement. There is mild left foraminal stenosis. There is no critical central canal stenosis. The L4-L5 level: There is mild central and right and left paracentral disk protrusion. There is mild right lateral recess effacement. There is mild bilateral foraminal stenosis. There is no critical central canal stenosis. The L5-S1 level: There is mild central and right and left paracentral disk protrusion with increased signal in the margin of the disc consistent with a fissure. There is no lateral recess stenosis or foraminal stenosis. There is no critical central canal stenosis. The visualized conus shows normal signal characteristics. Adjacent soft tissues are unremarkable. IMPRESSION: There is 20% anterior compression deformity at T12 with chronic features. There is no central canal stenosis, with lateral recess and foraminal narrowing. Cervical spine MRI (12/27/2024): FINDINGS: C2-C3: Vertebral bodies: Negative. Disk Space: Disc desiccation. Mild loss of disc height. Negative for Modic changes. Facet Joints: Mild bilateral facet joint hypertrophy. Neural foramina: Negative for neural foraminal narrowing Spinal Canal: Negative for central spinal narrowing. C3-C4: Vertebral bodies: Negative. Disk Space: Disc desiccation. Mild diffuse disc bulge. Negative for Modic changes. Facet Joints: Moderate left and mild right facet joint hypertrophy. Neural foramina: Moderate left and mild right neural foraminal narrowing Spinal Canal: Mild central spinal narrowing. C4-C5: Vertebral bodies: Negative. Disk Space: Disc desiccation. Mild diffuse disc bulge. Negative for Modic changes. Facet Joints: Moderate left and minimal right facet joint hypertrophy. Neural foramina: Moderate left and mild right neural foraminal narrowing Spinal Canal: Mild left central spinal narrowing. C5-C6: Vertebral bodies: Negative. Disk Space: Disc desiccation. Mild loss of disc height. Negative for Modic changes. Facet Joints: Moderate left and mild right facet joint hypertrophy. Neural foramina: Mild left and minimal right neural foraminal narrowing Spinal Canal: Negative for central spinal narrowing. C6-C7: Vertebral bodies: Negative. Disk Space: Disc desiccation. Mild diffuse disc bulge. Negative for Modic changes. Facet Joints: Mild bilateral facet joint hypertrophy. Neural foramina: Mild bilateral neural foraminal narrowing Spinal Canal: Mild central spinal narrowing. Spinal cord: Negative Posterior fossa and cerebellar tonsils negative. IMPRESSION: Multilevel degenerative changes of the cervical spine asymmetric to the left at C3-C4, C4-C5 and C5- C6 as above. CBC, CMP, lipid profile, magnesium, ESR, MARIA VICTORIA, TSH, folate, vitamin D, B12, B6, thiamine, serum free light chains (12/22/2024): ESR 48 (high), sodium 129 (low), cholesterol 230 (high), triglycerides 72 (normal), LDL 118 (normal), HDL 98 (normal), vitamin D 31 (near low end of normal range), MARIA VICTORIA positive, SS-A >8 (high), SS-B3.8 (high), free kappa light chains 38.5 (high) ABIs (12/27/2024): Indices The right ankle brachial index by the posterior tibial artery is 1.05. The right ankle brachial index by the dorsalis pedis is 1.06. The right digital-brachial index is 0.75. The left ankle brachial index by the posterior tibial artery is 0.52. The left ankle brachial index by the dorsalis pedis is 0.52. The left digital-brachial index is 0.48. Interpretation Summary Triphasic Doppler waveforms are no (more content not included)... Normal [facility] ANAon 12-06-2024 MARIA VICTORIA PATTERN Speckled Normal [employer] Comment on above: Order Comment: Perfo rmed using [employer] HEp-2 immunofluorescent antibody (IFA) Test. Performed By: #### 4 [id number], [id number], [id number], [id number], [id number], [id number] #### [facility] [address] [place] [id number] ANTI-NUCLEAR ANTIBODY (MARIA VICTORIA) >1:640 Abnormal <1:40 [facility] Comment on above: Order Comment: Perfo rmed using [employer] HEp-2 immunofluorescent antibody (IFA) Test. Performed By: #### 4 [id number], [id number], [id number], [id number], [id number], [id number] #### [address] C-REACTIVE PROTEIN (INFLAMMA TORY)on 12-06-2024 CRP [Mass/Vol] 15.6 mg/L High <=9.9 [facility] Comment on above: Performed By: #### 4 [id number], [id number], [id number], [id number], [id number], [id number], [id number] #### [address] C3 COMPLEMENTon 12-06-2024 C3 COMPLEMENT 110.0 mg/dL Normal 88.0-165.0 [facility] Comment on above: Performed By: #### 4 [id number], [id number], [id number], [id number], [id number], [id number] #### [address] C4 COMPLEMENTon 12-06-2024 C4 COMPLEMENT 27.5 mg/dL Normal 14.0-44.0 [facility] Comment on above: Performed By: #### 4 [id number], [id number], [id number], [id number], [id number], [id number] #### [address] CBC AND DIFFERENTIALon 12-06 ABSOLUTE BASOPHIL 0.0 x10*3/uL Normal 0.0-0.1 [facility] Comment on above: Performed By: #### 4 [id number], [id number], [id number], [id number], [id number], [id number], [id number] #### [address] ABSOLUTE EOSINOPHIL 0.1 x10*3/uL Normal 0.1-0.3 [facility] Comment on above: Performed By: #### 4 [id number], [id number], [id number], [id number], [id number], [id number], [id number] #### [address] ABSOLUTE IMMATURE GRANULOCYTES 0.0 x10*3/uL Normal 0.0-0.1 [facility] Comment on above: Performed By: #### 4 [id number], [id number], [id number], [id number], [id number], [id number], [id number] #### [address] ABSOLUTE LYMPH 1.4 x10*3/uL Normal 1.2-3.3 [facility] Comment on above: Performed By: #### 4 8176461, 10325077, 88807711, 38722337, 52456101, 27791474, 10893909 #### [address] ABSOLUTE MONO 0.7 x10*3/uL High 0.2-0.6 [facility] Comment on above: Performed By: #### 4 5209376, 58712347, 25734082, 54126860, 37273176, 16168591, 10901355 #### [address] ABSOLUTE NEUTROPHIL 5.2 x10*3/uL Normal 2.4-6.6 [facility] Comment on above: Performed By: #### 4 8582155, 56229464, 31167543, 05536459, 10031987, 21613027, 03154043 #### [place] [address] [place] Basophils/100 WBC (Bld) 0.5 % [facility] Comment on above: Performed By: #### 4 7683285, 70336286, 94999802, 67744095, 15290800, 35833536, 56812121 #### [address] Eosinophils/100 WBC (Bld) 1.5 % [facility] Comment on above: Performed By: #### 4 0251585, 64324708, 75378764, 58475334, 52835084, 22399854, 59184527 #### [address] Erythrocyte distribution width (RBC) [Ratio] 16.5 % High 11.5-14.5 [facility] Comment on above: Performed By: #### 4 4700692, 84647660, 63750270, 21307665, 31499966, 01373830, 43432722 #### [address] Hematocrit (Bld) [Volume fraction] 43.6 % Normal 33.6-46.8 [facility] Comment on above: Performed By: #### 4 5112492, 47832153, 90310680, 44480956, 90425702, 06712107, 71841765 #### [address] Hemoglobin (Bld) [Mass/Vol] 13.8 g/dL Normal 11.7-15.8 [facility] Comment on above: Performed By: #### 4 1249604, 11346027, 15852170, 36582208, 72108186, 79641889, 94456839 #### [address] Immature granulocytes/100 WBC (Bld) 0.3 % Normal [facility] Comment on above: Performed By: #### 4 8665191, 73044763, 62251225, 85872616, 41384505, 13976427, 03725648 #### [address] Lymphocytes/100 WBC (Bld) 18.8 % Normal [facility] Comment on above: Performed By: #### 4 7268017, 81294403, 36049217, 29961058, 63940580, 42179969, 87364944 #### [address] MCH (RBC) [Entitic mass] 26.4 pg Low 27.5-32.3 [facility] Comment on above: Performed By: #### 4 2787670, 46550286, 25965141, 04942808, 60571924, 81920974, 10406224 #### [address] MCHC (RBC) [Mass/Vol] 31.7 g/dL Normal 30.7-35.5 [facility] Comment on above: Performed By: #### 4 4044436, 29025197, 90442620, 66996591, 61631020, 17383368, 98479066 #### [address] MCV (RBC) [Entitic vol] 83.4 fL Normal 80.2-99 [facility] Comment on above: Performed By: #### 4 6232415, 78448737, 91357862, 75905045, 10126206, 66626325, 35534492 #### [address] Monocytes/100 WBC (Bld) 8.9 % Normal [facility] Comment on above: Performed By: #### 4 9425709, 02913596, 35395383, 14351667, 90980315, 34588986, 80929660 #### [address] Neutrophils/100 WBC (Bld) 70.0 % Normal [facility] Comment on above: Performed By: #### 4 4999636, 06035972, 50306276, 37098707, 49831143, 84883403, 59246548 #### [address] NUCLEATED RED BLOOD CELLS AUTO 0.0 % Normal 0.0-1.0 [facility] Comment on above: Performed By: #### 4 7615762, 35575028, 23686734, 23195397, 79077261, 77996367, 39024876 #### [address] PLATELET COUNT 296 x10*3/uL Normal 150-400 [facility] Comment on above: Performed By: #### 4 0495961, 70450753, 59260842, 93651950, 07182177, 30191533, 88732039 #### [address] [address] [place] [address] RED BLOOD CELL COUNT 5.23 x10*6/uL High 3.60-5.20 [facility] Comment on above: Performed By: #### 4 5849019, 43591131, 15830427, 48074355, 98590544, 98496122, 52846847 #### [facility] [address] [place] [address] WHITE BLOOD CELLS 7.5 x10*3/uL Normal 4.3-10.3 [facility] Comment on above: Performed By: #### 4 7092621, 69691873, 32037093, 64812302, 25484913, 43411963, 94271061 #### [address] CCP ANTIBODIES IGG/IGAon CCP IGG/IGA ABS 7 units Normal 0-19 [facility] Comment on above: Order Comment: Perfo rmed at: - [place] [id number] Director: Clinton Saavedra PhD, Phone: [phone] Result Comment: Nega tive <20 Weak positive 20 - 39 Moderate positive 40 - 59 Strong positive >59 Performed By: #### 4 4945508, 34621412, 23128557, 56018604, 84938437, 83696902, 20844404 #### [address] [place] [address] CKon 12-06-2024 CK [Catalytic activity/Vol] 59 U/L Normal 0-164 [facility] Comment on above: Performed By: #### 4 3115395, 12981055, 13309354, 88882097, 48397297, 16337481, 64597505 #### [address] COMPREHENSIVE METABOLIC PANE Abhishek 12-06-2024 Albumin [Mass/Vol] 4.4 g/dL Normal 3.5-5.0 [facility] Comment on above: Performed By: #### 4 9269329, 78275444, 51730736, 42479082, 07621783, 65294017, 91474146 #### [address] ALK PHOS 138 U/L High 24-126 [facility] Comment on above: Performed By: #### 4 4728239, 63407063, 57202450, 33546689, 88818791, 48761039, 14781266 #### [address] ALT [Catalytic activity/Vol] 18 U/L Normal 4-35 [facility] Comment on above: Performed By: #### 4 4565063, 88016665, 67695272, 18690297, 90727889, 88411313, 05702535 #### [address] AST [Catalytic activity/Vol] 30 U/L Normal 3-47 [facility] Comment on above: Performed By: #### 4 2632600, 46361866, 55765956, 00304063, 48466486, 59662607, 70652162 #### [address] Bilirubin [Mass/Vol] 0.5 mg/dL Normal 0.2-1.6 [facility] Comment on above: Performed By: #### 4 6576617, 09815784, 88422378, 32205629, 77590086, 60986082, 48267732 #### [address] Calcium [Mass/Vol] 9.7 mg/dL Normal 8.4-10.4 [facility] Comment on above: Performed By: #### 4 9551390, 51683164, 80181064, 11069810, 70568073, 72372112, 64544936 #### [address] Chloride [Moles/Vol] 95 mmol/L Low 96-109 [facility] Comment on above: Performed By: #### 4 3619991, 38016144, 92220975, 73613655, 43583871, 15469970, 90077585 #### [place] [address] [place] CO2 [Moles/Vol] 22 mmol/L Normal 22-30 [facility] Comment on above: Performed By: #### 4 0804078, 55621177, 09854331, 99400196, 74612277, 45935545, 03455536 #### [address] [place] [address] [facility] Creatinine [Mass/Vol] 0.64 mg/dL Normal 0.52-1.04 [facility] Comment on above: Performed By: #### 4 0921896, 53702707, 50093694, 86687887, 20565241, 98578586, 04016677 #### [address] [place] [address] [place] GLOMERULAR FILTRATION RATE ML/MIN/1.73 SQ M.PREDICTED 100.7 mL/min/1.73m*2 Normal >=60.0 [facility] Comment on above: Result Comment: eGFR calculation based on the Chronic Kidney Disease Epidemiology Collaboration (CKD-EPI) equation refit without adjustment for race. Categories in Chronic Kidney Disease (CKD) Category: GFR(mL/min/1.73m^2) Interpretation: G1* 90 or greater Normal or high G2* 60-89 Mild decrease G3a 45-59 Mild to moderate decrease G3b 30-44 Moderate to severe decrease G4 15-29 Severe decrease G5 14 or less Kidney failure *G1&G2: In the absence of evidence of kidney damage, neither GFR category G1 nor G2 fulfill the criteria for CKD Kidney Int Suppl.2013;3:1-150 Performed By: #### 4 1354711, 84003224, 42795246, 91731363, 23575989, 08011490, 17505267 #### [address] [place] [address] [facility] Glucose [Mass/Vol] 89 mg/dL Normal 65-100 [facility] Comment on above: Performed By: #### 4 0904550, 28417767, 67598246, 84794562, 37291059, 74029158, 27370669 #### [address] [place] [address] [facility] Potassium [Moles/Vol] 4.4 mmol/L Normal 3.6-5.1 [facility] Comment on above: Performed By: #### 4 4071578, 05849852, 06665401, 63528498, 98988280, 36959565, 49071051 #### [address] Protein [Mass/Vol] 7.9 g/dL Normal 6.3-8.2 [facility] Comment on above: Performed By: #### 4 2661718, 41920405, 16339594, 84674896, 11302447, 12531792, 48198931 #### [address] Sodium [Moles/Vol] 126 mmol/L Low 135-147 [facility] Comment on above: Performed By: #### 4 3160220, 41750473, 45852482, 41927826, 38261134, 88445077, 09161428 #### [address] Urea nitrogen [Mass/Vol] 11 mg/dL Normal 8-26 [facility] Comment on above: Performed By: #### 4 2422247, 70406043, 83137731, 94493942, 35026464, 69158881, 08698356 #### [address] DS DNA ANTIBODY IGG IFAon DSDNA CRITHIDIA LUCILIAE IFA Negative Normal Negative [facility] Comment on above: Order Comment: Perfo rmed at: 01 - [facility] [address] [id number] [employer]onic Engineer: Clinton Saavedra PhD, Phone: [phone] Performed By: #### 4 7736279 #### [facility] [address] [place] [address] LIPID PANELon 12-06-2024 Cholesterol [Mass/Vol] 222 mg/dL High <=200 [facility] Comment on above: Performed By: #### 4 1158210, 20260873, 29503705, 35419473, 59136899, 23804565, 20205787 #### [address] [address] [place] [address] Cholesterol in HDL [Mass/Vol] 102.0 mg/dL High 40.0-59.9 [facility] Comment on above: Performed By: #### 4 0692462, 47727008, 91536711, 29911222, 00256325, 99757718, 14178706 #### [address] LDL CHOLESTEROL CALCULATED 103 mg/dL High <=100 [facility] Comment on above: Result Comment: LDL REFERENCE RANGE: Optimal <100 mg/dl Near Optimal 100-129 mg/dL Borderline High 130-159 mg/dL High 160-189 mg/dL Very High >=190 mg/dL LDL-c is calculated using the Friedewald equation: LDL Cholesterol = (Total Cholesterol) - (HDL Cholesterol) - (Triglycerides/5). Performed By: #### 4 0558103, 97138522, 12421983, 46561297, 66045999, 49975685, 17429527 #### [address] Triglyceride [Mass/Vol] 84 mg/dL Normal <=150 [facility] Comment on above: Performed By: #### 4 7632066, 66569906, 32902152, 25695110, 93606257, 60125309, 03456071 #### [address] VLDL CHOLESTEROL GONZALEZ 17 mg/dL Normal <=41 [facility] Comment on above: Performed By: #### 4 7452038, 70788655, 51418989, 69747269, 38999784, 43904268, 81831340 #### [address] RHEUMATOID FACTORon 12-07-19 25 RHEUMATOID FACTOR 22.2 IU/mL High <=12.0 [facility] Comment on above: Performed By: #### 4 4799389, 88649877, 18384052, 33183555, 65310506, 24299078, 38934696 #### [address] SEDIMENTATION RATEon 025 SED RATE 56 mm/hr High 0-30 [facility] Comment on above: Performed By: #### 4 6209507, 23111826, 54181549, 98459184, 27365541, 50989451, 10797466 #### [address] C-REACTIVE PROTEIN (INFLAMMA TORY)on 09-22-2024 CRP [Mass/Vol] 143.9 mg/L High <=9.9 [facility] Comment on above: Performed By: #### 4 3801407, 96472948, 68186554, 82308447, 28767376, 87029651, 26358860 #### [address] CBC AND DIFFERENTIALon 09-22 ABSOLUTE BASOPHIL 0.0 x10*3/uL Normal 0.0-0.1 [facility] Comment on above: Performed By: #### 4 3433923, 58270113 #### [address] ABSOLUTE EOSINOPHIL 0.1 x10*3/uL Normal 0.1-0.3 [facility] Comment on above: Performed By: #### 4 2965453, 55919708 #### [address] ABSOLUTE IMMATURE GRANULOCYTES 0.0 x10*3/uL Normal 0.0-0.1 [facility] Comment on above: Performed By: #### 4 9556966, 95517820 #### [address] ABSOLUTE LYMPH 1.9 x10*3/uL Normal 1.2-3.3 [facility] Comment on above: Performed By: #### 4 1448883, 48722260 #### [address] ABSOLUTE MONO 0.6 x10*3/uL Normal 0.2-0.6 [facility] Comment on above: Performed By: #### 4 3221561, 92168819 #### [address] ABSOLUTE NEUTROPHIL 4.4 x10*3/uL Normal 2.4-6.6 [facility] Comment on above: Performed By: #### 4 4515219, 88489679 #### [address] Basophils/100 WBC (Bld) 0.4 % Normal [facility] Comment on above: Performed By: #### 4 9102098, 13380109 #### [address] Eosinophils/100 WBC (Bld) 1.4 % Normal [facility] Comment on above: Performed By: #### 4 6939725, 73789106 #### [address] Erythrocyte distribution width (RBC) [Ratio] 13.6 % Normal 11.5-14.5 [facility] Comment on above: Performed By: #### 4 5486858, 20478499 #### [address] Hematocrit (Bld) [Volume fraction] 42.4 % Normal 33.6-46.8 [facility] Comment on above: Performed By: #### 4 5383063, 88140196 #### [address] Hemoglobin (Bld) [Mass/Vol] 14.1 g/dL Normal 11.7-15.8 [facility] Comment on above: Performed By: #### 4 3813794, 56811198 #### [address] Immature granulocytes/100 WBC (Bld) 0.6 % Normal [facility] Comment on above: Performed By: #### 4 1414500, 64328806 #### [address] Lymphocytes/100 WBC (Bld) 26.6 % Normal [facility] Comment on above: Performed By: #### 4 2405877, 49648241 #### [address] MCH (RBC) [Entitic mass] 28.8 pg Normal 27.5-32.3 [facility] Comment on above: Performed By: #### 4 6781182, 97292384 #### [address] MCHC (RBC) [Mass/Vol] 33.3 g/dL Normal 30.7-35.5 [facility] Comment on above: Performed By: #### 4 6237639, 59187224 #### [address] MCV (RBC) [Entitic vol] 86.5 fL Normal 80.2-99 [facility] Comment on above: Performed By: #### 4 2740913, 73725606 #### [address] Monocytes/100 WBC (Bld) 8.7 % Normal [facility] Comment on above: Performed By: #### 4 1254508, 93876461 #### [address] Neutrophils/100 WBC (Bld) 62.3 % Normal [facility] Comment on above: Performed By: #### 4 5433458, 73842613 #### [address] NUCLEATED RED BLOOD CELLS AUTO 0.0 % Normal 0.0-1.0 [facility] Comment on above: Performed By: #### 4 0023536, 89045150 #### [address] PLATELET COUNT 421 x10*3/uL High 150-400 [facility] Comment on above: Performed By: #### 4 0410517, 16393463 #### [address] RED BLOOD CELL COUNT 4.90 x10*6/uL Normal 3.60-5.20 [facility] Comment on above: Performed By: #### 4 9981430, 45900341 #### [address] WHITE BLOOD CELLS 7.1 x10*3/uL Normal 4.3-10.3 [facility] Comment on above: Performed By: #### 4 5841506, 62122696 #### [address] LYME ANTIBODY IGG IGM LEONEL N BLOTon 09-22-2024 ADDITIONAL INFORMATION ([facility]) Comment [facility] Comment on above: Order Comment: Perfo rmed at: - [facility] [id number] Director: Jose Medellin MD, Phone: [phone] Result Comment: Per CDC criteria, the Lyme IgG Immunoblot is interpreted as positive if IgG-class antibodies are detected to 5 or more B. burgdorferi proteins, and the Lyme IgM Immunoblot is interpreted as positive if IgM-class antibodies are detected to 2 or more B. burgdorferi proteins. Immunoblot patterns not meeting these criteria should not be interpreted as positive. Epitopes from certain B. burgdorferi proteins (e.g., p41) are conserved across other bacteria, which may lead to the detection of IgM-and/or IgG class antibodies on the Lyme disease immunoblots in patients without Lyme disease. Immunoblot should only be ordered on specimens that are positive or equivocal by an FDA-licensed Lyme disease antibody screening test (e.g., EIA). Results of the Lyme IgM immunoblot should not be considered in patients with 30 or more days of symptoms. Performed By: #### 4 4089779, 34491257, 70426281, 24687002, 47074523, 79785111, 56040401 #### [address] [place], [place] [address] IGG P18 AB Absent [facility] Comment on above: Order Comment: Perfo rmed at: - [facility] [address] [id number] Director: Jose Medellin MD, Phone: [phone] Performed By: #### 4 6339806, 20534357, 66351704, 72264001, 78028962, 28033100, 49229448 #### [address] [place] [address] [place] IGG P23 AB Absent [facility] Comment on above: Order Comment: Perfo rmed at: - [facility] [address] [id number] Director: Jose Medellin MD, Phone: [phone] Performed By: #### 4 1290247, 76592837, 90066174, 58772582, 88799521, 21252109, 18011111 #### [address] [place] [address] [place] IGG P28 AB Absent Normal [facility] Comment on above: Order Comment: Perfo rmed at: 01 - [facility] [id number] Director: Jose Medellin MD, Phone: [phone] Performed By: #### 4 0271655, 23679987, 07476150, 27959912, 69787471, 55139541, 48923443 #### [address] [address] [place] [address] [place] IGG P30 AB Absent Normal [facility] Comment on above: Order Comment: Perfo rmed at: [address] [place] [id number] Director: Jose Medellin MD, Phone: [phone] Performed By: #### 4 1797035, 95859058, 92404045, 88059856, 70890356, 02588601, 46336457 #### [place] [address] [place] IGG P39 AB Absent [facility] Comment on above: Order Comment: Perfo rmed at: [address] [place] [address] [id number] Director: Jose Medellin MD, Phone: [phone] Performed By: #### 4 6757763, 79621963, 68359233, 85068795, 54982215, 87276277, 39387683 #### [address] [place] [address] [place] IGG P41 AB Absent Normal [facility] Comment on above: Order Comment: Perfo rmed at: 01 - [facility] [id number] Director: Jose Medellin MD, Phone: [phone] Performed By: #### 4 9788494, 77594462, 63822689, 22837617, 11717859, 68435328, 68992723 #### [address] [place] [address] [place] IGG P45 AB Absent Normal [facility] Comment on above: Order Comment: Perfo rmed at: 01 - [facility] [id number] [place], [place] [id number] Director: Jose Medellin MD, Phone: [phone] Performed By: #### 4 0605415, 81238439, 41318934, 73844928, 96036076, 72586671, 09908583 #### [address] [address] [place] IGG P58 AB Absent [facility] Comment on above: Order Comment: Perfo rmed at: 01 - [facility] [address] [id number] Director: Jose Medellin MD, Phone: [phone] Performed By: #### 4 6964725, 31127994, 49807381, 64216898, 95297584, 22464206, 37680507 #### [place] [address] [place] IGG P66 AB Absent [facility] Comment on above: Order Comment: Perfo rmed at: 01 - [facility] [address] [id number] Director: Jose Medellin MD, Phone: [phone] Performed By: #### 4 6165873, 77843523, 37588553, 62411253, 21880742, 00336978, 31180956 #### [address] [address] [place] IGG P93 AB Absent [facility] Comment on above: Order Comment: Perfo rmed at: 01 - [facility] [address] [id number] Director: Jose Medellin MD, Phone: [phone] Performed By: #### 4 4788627, 79181466, 11926963, 16630836, 15103230, 08379942, 63922032 #### [address] [place] [address] [place] IGM P23 AB Absent [facility] Comment on above: Order Comment: Perfo rmed at: 01 - [facility] [address] [id number] Director: Jose Medellin MD, Phone: [phone] Performed By: #### 4 5000870, 15008972, 16617989, 40944546, 35189662, 14993888, 38029511 #### [address] [place] [address] IGM P39 AB Absent [facility] Comment on above: Order Comment: Perfo rmed at: 01 - [facility] [address] [id number] Director: Jose Medellin MD, Phone: [phone] Performed By: #### 4 4306669, 54646019, 95208145, 70479151, 10192702, 16366376, 08209242 #### [address] IGM P41 AB Absent [facility] Comment on above: Order Comment: Perfo rmed at: 01 - [facility] [address] [id number] Director: Jose Medellin MD, Phone: [phone] Performed By: #### 4 9972832, 62441454, 23230097, 18940973, 26941506, 59244007, 41354912 #### [address] LYME IGG WB INTERP Negative Normal Negative [facility] Comment on above: Order Comment: Perfo rmed at: 01 - [facility] [address] [id number] Director: Jose Medellin MD, Phone: [phone] Performed By: #### 4 4136153, 97145962, 81922006, 07975754, 78536225, 60104844, 06758283 #### [address] [place] [address] LYME IGM WB INTERP Negative Normal Negative [facility] Comment on above: Order Comment: Perfo rmed at: 01 - [facility] [address] [id number] Director: Jose Medellin MD, Phone: [phone] Result Comment: Plea se Note: Lyme immunoblot alone is not recommended for the diagnosis of Lyme disease. Current guidelines recommend the use of a two-tiered approach to Lyme serology testing to improve the sensitivity and specificity of testing. [facility] offers test code 784887 Lyme Disease Serology with Reflex to aid in the diagnosis of Lyme Disease. Performed By: #### 4 6312101, 46182019, 34916581, 55786478, 30407040, 07085875, 36056059 #### [address] SEDIMENTATION RATEon 025 SED RATE 63 mm/hr High 0-30 [facility] Comment on above: Performed By: #### 4 0254019, 74880137 #### [address] URIC ACIDon 09-22-2024 Urate [Mass/Vol] 3.6 mg/dL Normal 2.0-7.0 [facility] Comment on above: Performed By: #### 4 0230092, 79906340, 85937387, 05857122, 92550670, 63725558, 92156079 #### [address] XR KNEE RIGHT 3 VIEWS (ROUTI NE)on 09-22-2024 XR KNEE RIGHT 3 VIEWS (ROUTINE) EXAMINATION: THREE XRAY VIEWS OF THE RIGHT KNEE 09/22/2024 10:54 am COMPARISON: None. HISTORY: right knee pain, swollen and red for a week Pt presents with right anterior knee pain just below patella at proximal tibia area, pt states pain started on 09/20/2024 and it got red and swollen over night last night, no previous fx or sx, no known injury to cause the pain and swelling, pt is having FINDINGS: Radiographs of the right knee demonstrate no fractures with preserved alignment. Joint spaces appear normal. No significant degenerative changes. Osseous mineralization is normal. There is no large joint effusion. There appears to be diffuse soft tissue stranding and superficial skin irregularity. Distal quadriceps and patellar tendon thickening also present. Vascular calcifications in the soft tissues. IMPRESSION: 1. No acute osseous findings seen about the right knee. Normal alignment. No visible joint effusion. 2. Superficial skin irregularity. Distal quadriceps tendon complex and patellar tendon complex thickening. Diffuse soft tissue stranding. RECOMMENDATION: In the setting of recent trauma, if there is persistent symptoms and physical exam warrants a repeat radiograph in 10-14 days could be considered as occult fractures may not be evident on initial imaging evaluation. Pt presents with right anterior knee pain just below patella at proximal tibia area, pt states pain started on 09/20/2024 and it got red and swollen over night last night, no previous fx or sx, no known injury to cause the pain and swelling, pt is having trouble walking because of the pain, limited ROM of right knee Normal [facility] FOOT COMPLETE LTon FOOT COMPLETE [address] [address] Patient: KLAUS HERNANDEZ Phone#: : [phone] Age: 58 Gender: F Pt. Type: Out Account: [id number] Location: Ordering: AMISHA GODOY Exam Date: 11/16/2023/12:29 Family Phys: JOSE SALCEDO Charge Code: 422284 Physician: CECI Grissom Order #: [id number] Dose#: PROCEDURE: X-RAY FOOT LT COMPLETE MIN 3 VIEWS COMPARISON: None. INDICATIONS: Foot injury. FINDINGS: BONES: Chronic deformity of the distal 5th metatarsal, possibly rib remote healed fracture. There is no evidence of acute abnormality. SOFT TISSUES: Negative. No visible soft tissue swelling. EFFUSION: None visible. OTHER: Negative. CONCLUSION: 1. There is no evidence of acute abnormality. Dictated by: Tata Mo MD on 11/16/2023 at 12:47 Approved by: Tata Mo MD on 11/16/2023 at 12:49 Normal [facility] 3D MAMM BILAT SCREENon 09-29 3D MAMM BILAT SCREEN [address] [address] Patient: KLAUS HERNANDEZ Phone#: : [phone] Age: 58 Gender: F Pt. Type: Out Account: [id number] Location: Ordering: JOSE SALCEDO Exam Date: 09/30/2023/15:08 Family Phys: Charge Code: [id number] Physician: [place] Order #: [id number] Dose#: PROCEDURE: BILATERAL SCREENING BREAST TOMOSYNTHESIS MAMMOGRAM WITH CAD COMPARISON: [facility], 3D BILAT SCREEN, 07/11/2021, 16:16. [facility], 3D BILAT SCREEN, 09/13/2022, 14:54. INDICATIONS: Screening. BREAST COMPOSITION: Scattered areas fibroglandular density. FINDINGS: DIAGNOSTIC CATEGORY 1--NEGATIVE: RIGHT BREAST: No significant suspicious finding. No significant change has occurred. LEFT BREAST: No significant suspicious finding. No significant change has occurred. RECOMMENDATIONS: ROUTINE MAMMOGRAM AND CLINICAL EVALUATION IN 12 MONTHS. PLEASE NOTE: A NORMAL MAMMOGRAM DOES NOT EXCLUDE THE POSSIBILITY OF BREAST CANCER. A CLINICALLY SUSPICIOUS PALPABLE LUMP SHOULD BE BIOPSIED. THIS FACILITY UTILIZES A REMINDER SYSTEM TO ENSURE THAT ALL PATIENTS RECEIVE REMINDER LETTERS FOR APPOINTMENTS. THIS INCLUDES REMINDERS FOR ROUTINE MAMMOGRAMS, DIAGNOSITC MAMMOGRAMS, OR OTHER BREAST IMAGING INTERVENTIONS WHEN APPROPRIATE. THIS PATIENT WILL BE PLACED IN THE APPROPRIATE REMINDER SYSTEM. Dictated by: Lala Fan MD on 10/01/2023 at 16:30 Approved by: Lala Fan MD on 10/01/2023 at 16:36 Normal [facility] MR MRI BRAIN W/WO CONTRASTon 09-02-2023 MR MRI BRAIN W/WO CONTRAST [place] [address] Patient: KLASU HERNANDEZ Phone#: : 1965 Age: 58 Gender: F Pt. Type: Out Account: [id number] Location: Ordering: BEREKET FLETCHER Exam Date: 09/02/2023/14:40 Family Phys: JOSE SALCEDO Charge Code: [id number] Physician: [place] Order #: [id number] Dose#: PROCEDURE: MRI BRAIN WITH AND WITHOUT CONTRAST COMPARISON: None. INDICATIONS: Parasthesia of skin TECHNIQUE: A variety of imaging planes and parameters were utilized for visualization of suspected pathology. Images were performed without and with gadolinium contrast. FINDINGS: CEREBRUM: There are few nonspecific periventricular foci of abnormal signal on FLAIR imaging. Possibility remote infectious, inflammatory or demyelinating disease is raised. CEREBELLUM: No edema, hemorrhage, mass, acute infarction, or inappropriate atrophy. BRAINSTEM: No edema, hemorrhage, mass, acute infarction, or inappropriate atrophy. CSF SPACES: Ventricles, cisterns, and sulci are appropriate for age. No hydrocephalus, subarachnoid hemorrhage, or mass. SKULL: No mass or other significant visible lesion. SINUSES: Limited views demonstrate no significant mucosal thickening or fluid. ORBITS: Limited views are unremarkable. OTHER: No abnormal meningeal or parenchymal enhancement. CONCLUSION: 1. Nonspecific foci of abnormal signal on FLAIR imaging are present raising the possibility of remote infectious or inflammatory disease versus demyelinating disease. Dictated by: Tata Mo MD on 09/03/2023 at 18:22 Approved by: Tata Mo MD on 09/03/2023 at 18:27 Normal [facility] VITAMIN B1, WHOLE BLOOD [CCL ]on 08-18-2023 Vitamin B1 (TDP), WholeBlood 135.9 nmol/L Normal 84.3-213.3 [facility] Comment on above: Result Comment: This assay measures the concentration of thiamine diphosphate (TDP), the primary active form of vitamin B1. Approximately 90 percent of vitamin B1 present in whole blood is TDP. Thiamine and thiamine monophosphate, which comprise the remaining 10 percent, are not measured. This test was developed and its performance characteristics determined by [facility] [place] ([facility]). It has not been cleared or approved by the FDA. [facility] is regulated under CLIA as qualified to perform high-complexity testing. This test is used for clinical purposes. It should not be regarded as investigational [place] [address] Suhas Gudino III, M.D. [id number] Performed By: #### 2 [id number] #### [facility],[address] [place], [place] [id number] COPPER, PLASMA [CCL]on 08-13 COPPER, PLASMA [CCL] Normal [facility] Comment on above: Result Comment: _COP PER [CCL]_ SEE SCANNED REPORT Performed By: #### 2 70303 #### [facility],[address] [place] [address] ENDOMYSIAL IGA ANTIBODIES [C CL]on 08-14-2023 ENDOMYSIAL IGA ANTIBODIES [CCL] Normal [facility] Comment on above: Result Comment: _END OMYSIAL IGA ANTIBODIES [CCL]_ SEE SCANNED REPORT Performed By: #### 2 66605 #### [facility],[address] [place], [place] [id number] HEPATITIS C AB IA W/CONFIRM [CCL]on 08-14-2023 HEPATITIS C AB IA W/CONFIRM [CCL] Normal [facility] Comment on above: Result Comment: _HEP ATITIS C AB IA W/CONFIRM [CCL]_ Performed By: #### 2 04847 #### [facility],[address] [place], [place] [id number] RHEUMATOID FACTOR [CCL]on RHEUMATOID FACTOR [CCL] Normal [facility] Comment on above: Result Comment: _RHE UMATOID FACTOR [CCL]_ SEE SCANNED REPORT Performed By: #### 2 33565 #### [facility],[address] [place] [address] TRANSGLUTAMINASE IGA ABS [CC L]on 08-14-2023 TRANSGLUTAMINASE IGA ABS [CCL] Normal [facility] Comment on above: Result Comment: _TRA NSGLUTAMINASE IGA ABS [CCL]_ SEE SCANNED REPORT Performed By: #### 2 17984 #### [facility],[address] [place] [address] VITAMIN B6 [CCL]on 4 Vitamin B6 Plasma 138.5 nmol/L High 20.0-125.0 [facility] Comment on above: Result Comment: INTE RPRETIVE INFORMATION: Vitamin B6 (Pyridoxal 5-Phosphate) Pyridoxal 5'-phosphate measured in a specimen collected following an 8-hour or overnight fast accurately indicates vitamin B6 nutritional status. Non-fasting specimen concentration reflects recent vitamin intake. This test was developed and its performance characteristics determined by [employer]. It has not been cleared or approved by the US Food and Drug Administration. This test was performed in a CLIA certified laboratory and is intended for clinical purposes. Performed By: [facility] [address] [place] [address] Batch Weigher: Samir Haddad MD, PhD CLIA Number: [id number] [facility] [address] [place] [id number] Suhas Gudino III, M.D. [id number] Performed By: #### 2 61770 #### [address] [address] HEMOGLOBIN A1C (POM)on 08-07 Glucose [Mass/Vol] 114.0 mg/dL High 0.0 - 0.0 [facility] Comment on above: Result Comment: [facility] HEMOGLOBIN A1C REFERENCE RANGESBLDo Suggested Diagnosis HbA1c(%) HbA1C (mmol/mol Diabetic >/=6.5 >/=48 Prediabetes 5.7 - 6.4 39 - 47 Normal <5.7 <39 Performed By: #### 2 88507 #### [address] [address] HbA1c (Bld) [Mass fraction] 5.6 % Normal 0.0 - 6.5 [facility] Comment on above: Performed By: #### 2 62822 #### [address] [address] VITAMIN B-12on 08-08-2023 Cobalamin (Vitamin B12) [Mass/Vol] 301 pg/mL Normal 193 - 986 [facility] Comment on above: Performed By: #### 2 20330 #### [address] [address] Laboratory - Chemistry and C hemistry - challengeon 09-12-2022 Albumin [Mass/Vol] 3.8 g/dL Normal 3.4 - 5.0 g/dL [facility] Albumin [Mass/Vol] 0.8 g/dL Abnormal 0.9 - 1.6 [facility], [facility]. ALP [Catalytic activity/Vol] 140 U/L Abnormal 46 - 116 U/L [facility]. ALT [Catalytic activity/Vol] 32 U/L Normal 14 - 59 U/L [facility]. ALT No additional P-5'-P [Catalytic activity/Vol] 32 U/L Normal 14 - 59 U/L [facility]. Anion gap [Moles/Vol] 14 mmol/L Normal 10 - 20 mmol/L [facility]. AST [Catalytic activity/Vol] 26 U/L Normal 13 - 39 U/L [facility]. Bilirubin [Mass/Vol] 0.4 mg/dL Normal 0.2 - 1.0 mg/dL [facility] Calcium [Mass/Vol] 9.0 mg/dL Normal 8.5 - 10. 1 mg/dL [facility]. Chloride [Moles/Vol] 92 mmol/L Abnormal 98 - 107 mmol/L [facility]. Cholesterol [Mass/Vol] 239 mg/dL Normal 0 - 240 mg/dL [facility]. Cholesterol in HDL [Mass or moles/Vol] 106 mg/dL Abnormal 40 - 60 mg/dL [facility]. Cholesterol in LDL [Mass/Vol] 120 mg/dL Normal 0 - 129 mg/dL [facility]. Cholesterol.total/C holesterol in HDL [Mass ratio] 2.3 {ratio} Normal 0.0 - 5.0 [facility] CO2 [Moles/Vol] 26.4 mmol/L Normal 21.0 - 32.0 mmol/L [facility], [facility] Comprehensive metabolic 2000 panel CMP with eGFR Normal [facility] Creatinine [Mass/Vol] 0.66 mg/dL Normal 0.55 - 1.02 mg/dL [facility], [facility].; [employer] [facility] [employer]. GFR/1.73 sq M.predicted among blacks MDRD (S/P/Bld) [Vol rate/Area] mL/min/{1.73_m2} Normal 60 - 999 {ML/MINUTE} [facility] [place] [employer] [facility] GFR/1.73 sq M.predicted MDRD (S/P/Bld) [Vol rate/Area] mL/min/{1.73_m2} Normal 60 - 999 {ML/MINUTE} [facility] [employer] Globulin (S) [Mass/Vol] 4.7 g/dL Abnormal 1.5 - 3.8 g/dL [facility], [facility].; [employer] Glucose [Mass/Vol] 87 mg/dL Normal 74 - 106 mg/dL [place] [employer] [facility].; [employer]. Lipid 1996 panel LIPID PROFILE Normal [facility], [facility].; [employer] Potassium [Moles/Vol] 4.2 mmol/L Normal 3.5 - 5.1 mmol/L [place] [employer] [facility].; [employer] Protein [Mass/Vol] 8.5 g/dL Abnormal 6.4 - 8.2 g/dL [place] [employer] [facility], [facility].; [employer] Sodium [Moles/Vol] 128 mmol/L Abnormal 136 - 145 mmol/L [place] [employer] [facility].; [employer] Triglyceride [Mass/Vol] 64 mg/dL Normal 0 - 150 mg/dL [place] [employer], [facility].; [employer] Urea nitrogen [Mass/Vol] 12 mg/dL Normal 7 - 18 mg/dL [place] [employer] Urea nitrogen/Creatinine [Mass ratio] 18 {ratio} Normal 0 - 30 {ratio} [employer] No Panel Informationon 09-12 AGE 57 {years} Normal [employer] Final Surgical Pathology [facility] 02-06-2022 Final Surgical Pathology Report . Pathology Reports Accession: Collected Date/Time: Received Date/Time: Pathologist: [id number] 01/31/2022 13:49 EST 02/01/2022 13:49 RAIN BANUELOS MD Final Surgical Pathology Report DIAGNOSIS: A. 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 [id number] CLINICAL INFORMATION: Procedure: LAPAROSCOPIC ASSISTED RIGHT HEMICOLECTOMY Preoperative diagnosis: SERRATED ADENOMA OF COLON SPECIMEN: A RIGHT COLON GROSS DESCRIPTION: A. Received in formalin, labeled with the patients name, Case #[id number], and right colon is a right hemicolectomy with terminal ileum (3 x 3 cm), cecum with ascending colon (23 x 6.5 cm) and appendix (7.5 x 0.6 cm). The serosal surface is pink-hemorrhagic with multiple thin adhesions as well as an area of black tattoo inking on the ascending colon. Blue ink is applied to the serosal surface at the area of black tattoo ink and black ink is applied to the mesenteric margin. The specimen is opened at both stapled ends to reveal in the cecum pouch is a hernandez sessile polyp measuring 0.8 x 0.5 x 0.3 cm and in the ascending colon at the tattoo ink site is additional polyp measuring 1.5 x 0.7 x 0.5 cm. Both polyps are entirely submitted. The polypoid lesion at the site of tattoo ink is located 12.5 cm to the proximal staple line margin, 7.5 cm to the distal staple line margin and 9 cm to the mesenteric margin. The cecum pouch polyp is located 7 cm to the proximal staple line margin and 21.5 cm to the distal staple line margin. The terminal ileum mucosa is hernandez-pink unremarkably folded and the remaining cecum and ascending colon mucosa appears unremarkably folded. The ascending colon is remarkable for 4-minute sessile polyps ranging from less than 0.1 to 0.3 cm. The pericolonic adipose tissue was removed from the specimen and placed into dissect aid solution. The tissue is palpated aCPT 80324 0nd dissected to reveal multiple lymph nodes which are submitted. RS-18 Cassette summary: A1 -proximal staple line margin A2 -distal staple line margin A3 -appendix A4 -mesenteric margin A5 -ascending colon polyp bisected A6 -cecum pouch polyp bisected A7 -terminal ileum mucosa A8 -cecum mucosa A9 -4-minute ascending colon polyps A10 -ascending colon mucosa A 11 -5 possible lymph nodes A 12 -5 possible lymph nodes A 13 -5 possible lymph nodes A 14 -A 18-additional pericolonic adipose tissue containing possible lymph nodes Dictated by JUDITH RICHEY Pathology Reports Accession: Collected Date/Time: Received Date/Time: Pathologist: [id number] 01/31/2022 13:49 EST 02/01/2022 13:49 EST RAIN ROSARIO MD MICROSCOPIC DESCRIPTION: The microscopic examination is performed, except in the case of Gross Only. Electronically Signed by Pathology Report verified by [facility] RAIN ROSARIO Sign out Date: 02/06/2022 10:38 Performing Lab: [facility], [address] [place] [address] Pathology Dept [facility] ([place]) Final Surgical Pathology Rep [facility] 09-21-2021 Final Surgical Pathology Report . Pathology Reports Accession: Collected Date/Time: Received Date/Time: Pathologist: [id number] 09/20/2021 13:40 EDT 09/20/2021 13:40 EDT TONI GALVEZ MD Final Surgical Pathology Report DIAGNOSIS: A) CECUM, BIOPSY - SERRATED POLYP. B) ASCENDING COLON, BIOPSY - TUBULAR ADENOMA. C) TRANSVERSE COLON, BIOPSY - SERRATED ADENOMA. D) DESCENDING COLON, POLYPECTOMY - HYPERPLASTIC POLYP. E) SIGMOID COLON, POLYPECTOMY - HYPERPLASTIC POLYP. F) RECTUM - HYPERPLASTIC POLYP. COMMENT: [facility] - [id number] CLINICAL INFORMATION: SCREENING Procedure: COLONOSCOPY SPECIMEN: A CECUM B ASCENDING COLON C TRANSVERSE COLON @ TATTOO D DESCENDING COLON E SIGMOID COLON F RECTUM GROSS DESCRIPTION: A. Received in formalin, labeled with the patients name, Case #[id number], and cecum biopsy are 7 hernandez tissue fragments ranging from 0.1 to 0.3 cm. TS -1 B. Received in formalin labeled ascending BX are 5 hernandez tissue fragments ranging from less than 0.1 to 0.5 cm. TS -1 C. Received in formalin labeled transverse BX at tattoo are 3 hernandez tissue fragments ranging from 0.3 to 0.4 cm. TS -1 D. Received in formalin labeled descending BX are 6 hernandez tissue fragments rated from 0.1 to 0.3 cm. TS -1 E. Received in formalin labeled sigmoid BX are 4 hernandez tissue fragments ranging from less than 0.1 to 0.3 cm. TS -1 F. Received in formalin labeled rectum BX are multiple hernandez tissue fragments ranging from 0.1 to 0.4 cm up an aggregate measurement of 1 x 0.4 x 0.1 cm. TS -1 Dictated by JUDITH RICHEY Pathology Reports Accession: Collected Date/Time: Received Date/Time: Pathologist: [id number] 09/20/2021 13:40 EDT 09/20/2021 13:40 EDT TONI GALVEZ MD MICROSCOPIC DESCRIPTION: Slides reviewed. Electronically Signed by Pathology Report verified by [facility] Electronically signed by TONI GALVEZ Sign out Date: 09/21/2021 14:58 Performing Lab: [facility], [address] [place] [address] ([place]) THINPREP PAP REFLEX HPV mRNA E6/E7on 03-03-2020 CLINICAL INFORMATION: Normal [facility] Comment on above: Result Comment: PART IAL HY Performed By: #### 9 0932 #### [facility] [place] [phone] Employment Interviewer: Robbin Gaona MD COMMENT Normal [facility] Comment on above: Result Comment: EXPL ANATORY NOTE: The Pap is a screening test for cervical cancer. It is not a diagnostic test and is subject to false negative and false positive results. It is most reliable when a satisfactory sample, regularly obtained, is submitted with relevant clinical findings and history, and when the Pap result is evaluated along with historic and current clinical information. Performed By: #### 9 0932 #### [facility]-[address] [phone] Employment Interviewer: Robbin Gaona MD TITLE I DIRECTOR: Normal [facility] Comment on above: Result Comment: DMK, CT(ASCP) CT screening location: [facility] [address] [address]. Performed By: #### 9 0932 #### [facility]-[address] [phone] Employment Interviewer: Robbin Gaona MD INTERPRETATION/RESU LT: Normal [facility] Comment on above: Result Comment: Nega tive for intraepithelial lesion or malignancy. Performed By: #### 9 0932 #### [facility]-[address], [address] [place] [phone] Employment Interviewer: Robbin Gaona MD LMP: Normal [facility] Comment on above: Result Comment: None given Performed By: #### 9 0932 #### [facility]-[address], [address] [place] [phone] Employment Interviewer: Robbin Gaona MD PREV. BX: Normal [facility] Comment on above: Result Comment: None given Performed By: #### 9 0932 #### [facility]-[address], [address] [place] [phone] Employment Interviewer: Robbin Gaona MD PREV. PAP: Normal [facility] Comment on above: Result Comment: None given Performed By: #### 9 0932 #### [facility]-[address], [address] [place] [phone] Employment Interviewer: Robbin Gaona MD REVIEW TITLE I DIRECTOR: Normal [facility] Comment on above: Result Comment: JEAnton, CT(ASCP) CT screening location: [facility] [address] [address]. Performed By: #### 9 0932 #### [facility]-[address], [address] [place] [phone] Employment Interviewer: Robbin Gaona MD SOURCE: Normal [facility] Comment on above: Result Comment: Endo cervix Performed By: #### 9 0932 #### [facility]-[address], [address] [place] [phone] Employment Interviewer: Robbin Gaona MD STATEMENT OF ADEQUACY: Normal [facility] Comment on above: Result Comment: Sati sfactory for evaluation. Endocervical/transformation zone component absent. Performed By: #### 9 0932 #### [facility]-[place] [phone] Employment Interviewer: Robbin Gaona MD No Panel Informationon 02-27 [id number] SEE NOTE Normal [employer] CLINICAL INFORMATION: SEE NOTE Normal [employer] TITLE I DIRECTOR: SEE NOTE Normal [employer] INTERPRETATION/RESU LT: SEE NOTE Normal [employer] LMP: SEE NOTE Normal [employer] PREV. BX: SEE NOTE Normal [employer] PREV. PAP: SEE NOTE Normal [employer] REVIEW TITLE I DIRECTOR: SEE NOTE Normal [employer] SOURCE: SEE NOTE Normal [employer] STATEMENT OF ADEQUACY: SEE NOTE Normal [employer] BASIC METABOLIC PANELon Calcium [Mass/Vol] 9.2 mg/dL Normal 8.6-10.4 [facility] Comment on above: Performed By: #### 7 760, 443[address] #### [facility] [place] [address] Employment Interviewer: Robbin Gaona MD Chloride [Moles/Vol] 95 mmol/L Low 98-110 [facility] Comment on above: Performed By: #### 7 600, [address] #### [facility]-[place] [phone] Employment Interviewer: Robbin Gaona MD CO2 [Moles/Vol] 28 mmol/L Normal 20-32 [facility] Comment on above: Performed By: #### 7 600, [address] #### [facility], [address] [place] [address] Employment Interviewer: Robbin Gaona MD Creatinine [Mass/Vol] 0.73 mg/dL Normal 0.50-1.05 [facility] Comment on above: Result Comment: For patients >49 years of age, the reference limit for Creatinine is approximately 13% higher for people identified as -[place]. Performed By: #### 7 600, [address] #### [facility], [address] [place] [address] Employment Interviewer: Robbin Gaona MD eGFR NON-AFR. [facility]ER[facility] LEONEAN 91 mL/min/1.73m2 Normal > OR = 60 [facility] Comment on above: Performed By: #### 7 600, [address] #### [facility] [address] Employment Interviewer: Robbin Gaona MD GFR/1.73 sq M predicted among blacks MDRD (S/P/Bld) [Vol rate/Area] 106 mL/min/{1.73_m2} Normal > OR = 60 [facility] Comment on above: Performed By: #### 7 600, [address] #### [facility] [address] Employment Interviewer: Robbin Gaona MD Glucose [Mass/Vol] 88 mg/dL Normal 65-99 [facility] Comment on above: Result Comment: Fasting reference interval Performed By: #### 7 600, [address] #### [facility] [address] Employment Interviewer: Robbin Gaona MD Potassium [Moles/Vol] 4.6 mmol/L Normal 3.5-5.3 [facility] Comment on above: Performed By: #### 7 600, [address] #### [facility] [address] Employment Interviewer: Robbin Gaona MD Sodium [Moles/Vol] 130 mmol/L Low 135-146 [facility] Comment on above: Performed By: #### 7 600, [address] #### [facility], [address] [place] [address] Employment Interviewer: Robbin Gaona MD Urea nitrogen [Mass/Vol] 18 mg/dL Normal 7-25 [facility] Comment on above: Performed By: #### 7 600, 79095 #### [facility]-[address], [address] [place] [address] Employment Interviewer: Robbin Gaona MD Urea nitrogen/Creatinine [Mass ratio] NOT APPLICABLE Normal 6-22 [facility] Comment on above: Performed By: #### 7 600, 72[address] #### [facility]-[address], [address] [place] [address] Employment Interviewer: Robbin Gaona MD LIPID PANEL, [facility] 12-0 Cholesterol [Mass/Vol] 246 mg/dL High <200 [facility] Comment on above: Performed By: #### 7 600, 91883 #### [facility]-[address], [address] [place] [address] Employment Interviewer: Robbin Gaona MD Cholesterol in HDL [Mass/Vol] 105 mg/dL Normal > OR = 50 [facility] Comment on above: Performed By: #### 7 600, 97509 #### [facility]-[address], [address] [place] [address] Employment Interviewer: Robbin Gaona MD Cholesterol in LDL [Mass/Vol] 127 mg/dL (calc) High [facility] Comment on above: Result Comment: Refe rence range: <100 Desirable range <100 mg/dL for primary prevention; <70 mg/dL for patients with CHD or diabetic patients with > or = 2 CHD risk factors. LDL-C is now calculated using the Thomas calculation, which is a validated novel method providing better accuracy than the Friedewald equation in the estimation of LDL-C. Eliazar SS et al. NEAL. 2013;310(19): 2572-5897 (http://education.Polar.ShrinkTheWeb/faq/VFA816) Performed By: #### 7 600, 01698 #### [facility]-[address], [address] [place] [address] Employment Interviewer: Robbin Gaona MD Cholesterol.total/C holesterol in HDL [Mass ratio] 2.3 (calc) Normal <5.0 [facility] Comment on above: Performed By: #### 7 600, 645[address] #### [facility] [facility], [address] [place] [address] Employment Interviewer: Robbin Gaona MD NON HDL CHOLESTEROL 141 mg/dL (calc) High <130 [facility] Comment on above: Result Comment: For patients with diabetes plus 1 major ASCVD risk factor, treating to a non-HDL-C goal of <100 mg/dL (LDL-C of <70 mg/dL) is considered a therapeutic option. Performed By: #### [id number] #### [facility], [address] [place] [address] Employment Interviewer: Robbin Gaona MD Triglyceride [Mass/Vol] 52 mg/dL Normal <150 [facility] Comment on above: Performed By: #### [id number], [id number] #### [facility], [address] [place] [address] Employment Interviewer: Robbin Gaona MD Laboratory - Chemistry and C hemistry - challengeon 02-17-2020 Calcium [Mass/Vol] 9.2 mg/dL Normal 8.6 - 10. 4 mg/dL [employer] Chloride [Moles/Vol] 95 mmol/L Abnormal 98 - 110 mmol/L [employer] Cholesterol [Mass/Vol] 246 mg/dL Abnormal [employer] Cholesterol in HDL [Mass/Vol] 105 mg/dL Normal [employer] Cholesterol in LDL [Mass/Vol] 127 mg/dL Abnormal [employer] CO2 [Moles/Vol] 28 mmol/L Normal 20 - 32 mmol/L [employer] Creatinine [Mass/Vol] 0.73 mg/dL Normal 0.50 - 1.05 mg/dL [employer] GFR/1.73 sq M.predicted among blacks MDRD (S/P/Bld) [Vol rate/Area] 106 mL/min/{1.73_m2} Normal [facility].; [place] [employer] [facility] Glucose [Mass/Vol] 88 mg/dL Normal 65 - 99 mg/dL [facility].; [place] [employer] [facility] [facility] Potassium [Moles/Vol] 4.6 mmol/L Normal 3.5 - 5.3 mmol/L [facility] [place] [employer] Sodium [Moles/Vol] 130 mmol/L Abnormal 135 - 146 mmol/L [facility].; [place] [employer] [facility] Triglyceride [Mass/Vol] 52 mg/dL Normal [facility] [place] [employer] [facility] [employer] Urea nitrogen [Mass/Vol] 18 mg/dL Normal 7 - 25 mg/dL [facility] [place] [employer] [facility] No Panel Informationon 02-16 BUN/CREATININE RATIO NOT APPLICABLE Normal 6 - 22 [facility].; [employer] CHOL/HDLC RATIO 2.3 Normal [facility]; [place] [employer] [facility] eGFR NON-AFR. SIERRA LEONEAN 91 Normal [facility] [place] [employer] [facility] NON HDL CHOLESTEROL 141 Abnormal [facility]; [employer] [facility] Cryoglobulinon 01-13-2019 Cryoglobulin 18 ug/mL Normal 0-50 [facility] Comment on above: Performed By: #### C CP, ANCA #### [facility] Immuno Assay [address] [place], [place] [address] #### CARDIO #### [facility] Immunology [address] [place], [place] [address] #### CRYOQT #### [facility] Chemistry [address] [place], [place] [address] Lupus Anticoag Panelon 01-12 Interpretation Normal [facility] Comment on above: Result Comment: (NOT E) Performing Pathologist: Carola Perla Interpretation: Abnormal - see comment below. SIGNIFICANT FINDINGS: 1. Prolonged APTT, cannot rule out lupus anticoagulant. 2. Anticardiolipin IgM antibody: POSITIVE. Laboratory testing was performed to evaluate the presence of a lupus anticoagulant and anti-phospholipid antibodies. The APTT value was prolonged with a normal PT/INR. An anti Xa assay was negative; unfractionated heparin and direct Xa inhibitor effect was not detected. A normal thrombin time (TT) makes a heparin and/or direct thrombin inhibitor effect unlikely. LUPUS ANTICOAGULANT STUDIES: There is no evidence for a lupus anticoagulant or other coagulation inhibitor based on the testing performed. However, the APTT incubated mixing study was not performed due to insufficient sample volume. The specimen volume is also insufficient to perform and factor assays to rule out a factor deficiency. Suggest rechecking a lupus anticoagulant panel on a new specimen in 12 weeks to evaluate further. The criteria for the diagnosis of a Lupus Anticoagulant, as detailed by the Subcommittee on Lupus Anticoagulants and Anti-Phospholipid Antibodies of the Scientific and Standardization Committee of the International Society on Thrombosis and Haemostasis (ISTH), are the following: (1) A prolonged phospholipid-dependent clotting test (screening test); (2) Evidence for an inhibitor (1:1 mix of patient:normal plasma); (3) Evidence that the inhibitor is phospholipid dependent and (4) Exclusion of specific inhibitors (ie, fVIII inhibitors, direct thrombin inhibitors, or heparin). Thromb. Haemost. 74:1185 (1995). ANTIPHOSPHOLIPID ANTIBODY STUDIES: The IgM anticardiolipin antibody titer was positive, with negative IgG and IgA anticardiolipin antibodies. The presence of an IgM anticardiolipin antibody (a type of antiphospholipid antibody) may be a risk factor for both venous and arterial thrombosis. Suggest retesting in 12 weeks to confirm, as anticardiolipin antibodies may be transient. If the titer is elevated on two or more occasions at least 12 weeks apart, this may be indicative of the anti-phospholipid antibody syndrome, if observed in the correct clinical setting. Antiphospholipid antibody syndrome (APS) is present if at least one clinical criteria and one laboratory criteria are met. The clinical criteria for APS include the presence of vascular thrombosis or morbidity. The laboratory criteria for APS include positive testing for one of the following on two or more occasions, at least 12 weeks apart: (1) lupus anticoagulant ; (2) anticardiolipin IgG or IgM in medium or high titer (>40 GPL or >40 MPL) ; (3) anti-beta 2 glycoprotein I IgG or IgM antibody. J. Thromb Haemost 4:295 (2006). Both the IgG and IgM Beta-2 Glycoprotein I antibody titers were negative. DRVVT 1:1 Mix 39.0 sec Normal 32.7-46.7 [facility] DRVVT Confirm Ratio 0.97 Normal <1.21 [facility] DRVVT Screen 38.2 sec Normal 32.7-46.7 [facility] Hex Phase Confirm 55.6 sec High 41.8-54.9 [facility] Reference Lab Hex Phase Delta 4.9 delta sec Normal <9.1 [facility] Reference Lab Hex Phase Screen 60.5 sec High 45.0-59.9 [facility] Lab PNP NEGAT Normal Negative [facility] Thrombin Time 16.1 sec Normal <18.6 [facility] Anti Xa Inhib Assay *LAB USE Normal [facility] Comment on above: Result Comment: Anti Xa activity was not detected. This test was developed and its performance characteristics determined by [facility]'s [facility] [place] ( [facility]). It has not been cleared or approved by the FDA. [facility] is regulated under CLIA as qualified to perform high complexity testing. This test is used for clinical purposes. It should not be regarded as investigational or for research. aPTT Coag (Bld) [Time] QNS Normal <33.2 [facility] aPTT Coag (Bld) [Time] High 24.4-33.4 [facility] Comment on above: Result Comment: 36.0 Result rechecked. Anti-Neutro.Cyto.Abon 2018 ANCA Interpretation ANCAN Normal [facility] Comment on above: Performed By: #### C CP, ANCA #### [facility] Immuno Assay [address] [place], [place] [address] #### CARDIO #### [facility] Immunology [address] [place], [place] [address] #### CRYOQT #### [facility] Chemistry [address] [place], [place] [address] C-ANCA Fluorescence NEGAT Normal Negative [facility] Comment on above: Performed By: #### C CP, ANCA #### [facility] Immuno Assay [address] [place], [place] [address] #### CARDIO #### [facility] Immunology [address] [place] [phone] #### CRYOQT #### [facility] Chemistry [address] [place], [place] [address] [phone] Myeloperoxidase Ab TNIFA Normal <1.0 [facility] Lab Comment on above: Performed By: #### C CP, ANCA #### [facility] Immuno Assay [address] [place], [place] [address] [phone] #### CARDIO #### [facility] Immunology [address] [place] [phone] #### CRYOQT #### [facility] Chemistry [address] [place] [phone] P-ANCA Fluorescence NEGAT Normal Negative [facility] Comment on above: Performed By: #### C CP, ANCA #### [facility] Immuno Assay [address] [place], [place] [address] [phone] #### CARDIO #### [facility] Immunology [address] [place] [phone] #### CRYOQT #### [facility] Chemistry [address] [place], [place] [address] Proteinase-3 Ab TNIFA Normal <1.0 [facility] Comment on above: Performed By: #### C CP, ANCA #### [facility] Immuno Assay [address] [place], [place] [address] [phone] #### CARDIO #### [facility] Immunology [address] [place] [phone] #### CRYOQT #### [facility] Chemistry [address] [place], [place] [id number] Staff Review SNIFA Normal [facility] Comment on above: Performed By: #### C CP, ANCA #### [facility] Immuno Assay [address] [place], [place] [address] [phone] #### CARDIO #### [facility] Immunology [address] [place] [phone] #### CRYOQT #### [facility] Chemistry [address] [place] [address] CCP Antibody, IgGon 01-12-20 19 CCP Antibody, IgG <15 Normal <20 [facility] Comment on above: Performed By: #### C CP, ANCA #### [facility]LED[facility] Immuno Assay [address] [place] [phone] #### CARDIO #### [facility] Immunology [address] [place] [phone] #### CRYOQT #### [facility] Chemistry [address] [place] [phone] Cardiolipin Antibodyon 01-11 IgG Cardiolipin Ab. <9 Normal 0-9 [facility] Comment on above: Performed By: #### C CP, ANCA #### [facility] [employer] Immuno Assay [address] [place] [phone] #### CARDIO #### [facility] Immunology [address] [place] [phone] #### CRYOQT #### [facility] [employer] Chemistry [address] [place] [phone] Lupus Anticoag Panelon 01-11 IgM Cardiolipin Ab. >150 High 0-11 [facility] Comment on above: Performed By: #### C CP, ANCA #### [facility] [address] [place] [address] #### CARDIO #### [facility] Immunology [address] [place] [address] #### CRYOQT #### [facility] Chemistry [address] [place] [address] IgA Cardiolipin Ab. <9 Normal 0-11 [facility] Comment on above: Performed By: #### C CP, ANCA #### [facility] Immuno Assay [address] [place] [address] #### CARDIO #### [facility] Immunology [address] [place] [address] #### CRYOQT #### [facility] Chemistry [address] [place] [address] Beta2 Glycoprot IgG <9 Normal <20 [facility] Beta2 Glycoprot IgM <9 Normal <20 [facility] aPTT Coag (Bld) [Time] 32.7 s High 23.0-32.4 [facility] INR Coag (PPP) [Relative time] 1.0 {INR} Normal 0.9-1.3 [facility] PT Sec 10.9 sec Normal 9.7-13.0 [facility] MARIA VICTORIA by IFAon 12-02-2018 MARIA VICTORIA Pattern ANANOT Normal [facility] Comment on above: Performed By: #### A NAIFS #### [facility] Immuno Assay [address] [place] [phone] MARIA VICTORIA Titer Normal Negative [facility] Comment on above: Result Comment: Nega tive Normal range : negatie at <1:80 serum dilution. Performed By: #### A NAIFS #### [facility] Immuno Assay [address] [place] [phone] Nuclear Ab IF (S) [Titer] Negative Normal Negative [facility] Comment on above: Performed By: #### A NAIFS #### [facility] Immuno Assay [address] [place], [place] [address] Laboratory - Chemistry and C hemistry - challengeon 11-24-2018 Cholesterol [Mass/Vol] 229 mg/dL Abnormal 0 - 200.0 mg/dL [employer] Cholesterol in HDL [Mass/Vol] 100 mg/dL Abnormal 30.0 - 40.0 mg/dL [employer] Cholesterol in LDL [Mass/Vol] Normal 50.0 - 130.0 mg/dL [employer] Cholesterol.total/C holesterol in HDL [Mass ratio] Normal 0 - 5.0 [employer] Glucose Glucometer (BldC) [Moles/Vol] 74 Normal 60 - 120 [employer] Triglyceride [Mass/Vol] 76 mg/dL Normal 40 - 150 mg/dL [employer] No Panel Informationon 11-24 NON HDL Normal [employer] Laboratory - Chemistry and C hemistry - challengeon 11-12-2017 Cholesterol [Mass/Vol] 263 mg/dL Abnormal 0 - 200.0 mg/dL [employer] Cholesterol in HDL [Mass/Vol] mg/dL Normal 30.0 - 40.0 mg/dL [employer] Cholesterol in LDL [Mass/Vol] Normal 50.0 - 130.0 mg/dL [employer] Cholesterol.total/C holesterol in HDL [Mass ratio] Normal 0 - 5.0 [employer] Glucose Glucometer (BldC) [Moles/Vol] 86 Normal 60 - 120 [employer] Triglyceride [Mass/Vol] 86 mg/dL Normal 40 - 150 mg/dL [employer], [facility]. No Panel Informationon 08-29 -2018 NON HDL Normal [facility] Laboratory - Chemistry and C hemistry - challengeon 10-28-2016 Albumin [Mass/Vol] 4.7 g/dL Normal 3.4 - 4.8 g/dL [facility]; [facility] Albumin [Mass/Vol] 2.0 g/dL Abnormal 0.9 - 1.6 [facility].; [facility]. ALP [Catalytic activity/Vol] 69 U/L Normal 38 - 126 U/L [facility].; [facility]. ALT [Catalytic activity/Vol] 15 U/L Normal 8 - 35 U/L [facility].; [facility] ALT No additional P-5'-P [Catalytic activity/Vol] 15 U/L Normal 8 - 35 U/L [facility].; [facility] Anion gap [Moles/Vol] 13 mmol/L Normal 10 - 20 mmol/L [facility].; [facility]. AST [Catalytic activity/Vol] 18 U/L Normal 13 - 39 U/L [facility].; [facility]. Bilirubin [Mass/Vol] 0.4 mg/dL Normal 0.0 - 1.5 mg/dL [facility].; [facility]. Bilirubin Ql (U) Negative Normal [facility].; [facility] Calcium [Mass/Vol] 10.1 mg/dL Normal 8.6 - 10. 2 mg/dL [facility].; [facility]. Chloride [Moles/Vol] 97 mmol/L Abnormal 98 - 107 mmol/L [facility].; [facility]. CO2 [Moles/Vol] 27.4 mmol/L Normal 21.0 - 31.0 mmol/L [facility].; [facility]. Comprehensive metabolic 2000 panel CMP with eGFR Normal [facility] Creatinine [Mass/Vol] 0.6 mg/dL Normal 0.6 - 1.2 mg/dL [facility].; [place] [employer] [facility]. GFR/1.73 sq M.predicted among blacks MDRD (S/P/Bld) [Vol rate/Area] mL/min/{1.73_m2} Normal 60 - 999 {ML/MINUTE} [facility].; [facility]. GFR/1.73 sq M.predicted MDRD (S/P/Bld) [Vol rate/Area] mL/min/{1.73_m2} Normal 60 - 999 {ML/MINUTE} [facility].; [facility]. Globulin (S) [Mass/Vol] 2.4 g/dL Normal 1.5 - 3.8 g/dL [facility].; [place] [employer] [facility] [facility]. Glucose [Mass/Vol] 85 mg/dL Normal 74 - 106 mg/dL [facility].; [place] [employer] [facility]. Ketones Ql (U) Negative Normal [facility].; [place] [employer] [facility]. pH (U) 7.0 [pH] Normal [facility] [place] [employer] [facility]. Potassium [Moles/Vol] 4.6 mmol/L Normal 3.5 - 5.1 mmol/L [facility].; [place] [employer] [facility]. Protein [Mass/Vol] 7.1 g/dL Normal 6.4 - 8.3 g/dL [facility].; [place] [employer] [facility] [facility]. Sodium [Moles/Vol] 133 mmol/L Abnormal 136 - 145 mmol/L [facility].; [place] [employer], [facility]. Specific gravity (U) [Rel density] 1.015 Normal [place] [employer] [facility].; [place] [employer] [facility]. Urea nitrogen [Mass/Vol] 9 mg/dL Normal 6 - 20 mg/dL [facility].; [place] [employer] [facility], [facility]. Urea nitrogen/Creatinine [Mass ratio] 15 {ratio} Normal 0 - 30 {ratio} [facility].; [place] [employer] [facility] [facility]. Urobilinogen Qn (U) 0.2 mg/dL Normal [facility].; [employer]. Laboratory - Hematology and Cell countson 10-28-2016 Hemoglobin Ql (U) Negative Normal [employer] Laboratory - Specimen inform ationon 10-28-2016 Appearance (U) Clear Normal [employer]. Color (U) Yellow Normal [employer]. Laboratory - Urinalysison Glucose Test strip (U) [Mass/Vol] Negative Normal [employer]. Leukocyte esterase Test strip Ql (U) Negative Normal [employer]. Nitrite Ql (U) Negative Normal [employer]. Protein Ql (U) Negative Normal [employer]. No Panel Informationon 10-28 AGE 51 {years} Normal [employer]; [employer]. Laboratory - Chemistry and C hemistry - challengeon 08-22-2015 Albumin [Mass/Vol] 4.7 g/dL Normal 3.4 - 4.8 g/dL [employer]. Albumin [Mass/Vol] 1.6 g/dL Normal 0.9 - 1.6 [employer]. ALP [Catalytic activity/Vol] 73 U/L Normal 38 - 126 U/L [employer].; [employer]. ALT [Catalytic activity/Vol] 16 U/L Normal 8 - 35 U/L [employer]. ALT No additional P-5'-P [Catalytic activity/Vol] 16 U/L Normal 8 - 35 U/L [employer]. Anion gap [Moles/Vol] 11 mmol/L Normal 10 - 20 mmol/L [employer].; [employer]. AST [Catalytic activity/Vol] 18 U/L Normal 13 - 39 U/L [employer]. Bilirubin [Mass/Vol] 0.4 mg/dL Normal 0.0 - 1.5 mg/dL [facility].; [facility] Calcium [Mass/Vol] 9.5 mg/dL Normal 8.6 - 10. 2 mg/dL [facility].; [facility] Chloride [Moles/Vol] 97 mmol/L Abnormal 98 - 107 mmol/L [facility].; [facility] Cholesterol [Mass/Vol] 232 mg/dL Abnormal 0 - 200 mg/dL [facility].; [facility]. Cholesterol in HDL [Mass or moles/Vol] 91 mg/dL Abnormal 40 - 60 mg/dL [facility].; [facility] Cholesterol in LDL [Mass/Vol] 127 mg/dL Normal 0 - 129 mg/dL [facility].; [facility] Cholesterol.total/C holesterol in HDL [Mass ratio] 2.5 {ratio} Normal 0.0 - 5.0 [facility]; [facility] CO2 [Moles/Vol] 30.0 mmol/L Abnormal 13.0 - 29.0 mmol/L [facility].; [facility]. Comprehensive metabolic 2000 panel CMP with eGFR Normal [facility]; [facility] Creatinine [Mass/Vol] 0.7 mg/dL Normal 0.6 - 1.2 mg/dL [facility].; [facility]. GFR/1.73 sq M.predicted among blacks MDRD (S/P/Bld) [Vol rate/Area] mL/min/{1.73_m2} Normal 60 - 999 {ML/MINUTE} [facility].; [facility]. GFR/1.73 sq M.predicted MDRD (S/P/Bld) [Vol rate/Area] mL/min/{1.73_m2} Normal 60 - 999 {ML/MINUTE} [facility].; [facility]. Globulin (S) [Mass/Vol] 2.9 g/dL Normal 1.5 - 3.8 g/dL [facility]; [facility] Glucose [Mass/Vol] 87 mg/dL Normal 74 - 106 mg/dL [facility] [place] [employer] [facility] Lipid 1996 panel LIPID PROFILE Normal [facility]; [place] [employer] Potassium [Moles/Vol] 4.5 mmol/L Normal 3.5 - 5.1 mmol/L [facility]; [place] [employer] [facility] Protein [Mass/Vol] 7.6 g/dL Normal 6.4 - 8.3 g/dL [facility] [place] [employer] [facility] Sodium [Moles/Vol] 133 mmol/L Abnormal 136 - 145 mmol/L [facility] [place] [employer] [facility] Triglyceride [Mass/Vol] 71 mg/dL Normal 0 - 150 mg/dL [facility] [place] [employer] Urea nitrogen [Mass/Vol] 13 mg/dL Normal 6 - 20 mg/dL [facility] [place] [employer] Urea nitrogen/Creatinine [Mass ratio] 19 {ratio} Normal 0 - 30 {ratio} [facility].; [employer] No Panel Informationon 08-21 AGE 50 {years} Normal [facility].; [place] [employer] Vital Signs Date Time Vital Sign Value Performing Clinician Facility 12-13-2024 08:59-0400 Body temperature 98.4 [degF] Dr. Jose Salcedo MD Work Phone: [facility] 12-13-2024 08:59-0400 Body weight 56.[address] Jose Salcedo MD Work Phone: [facility] 12-13-2024 08:59-0400 Diastolic blood pressure 88 mm[Hg] Dr. Jose Salcedo MD Work Phone: [facility] 12-13-2024 08:59-0400 Heart rate 82 /min Dr. Jose Salcedo MD Work Phone: [facility] 12-13-2024 08:59-0400 Respiratory rate 17 /min Dr. Jose Salcedo MD Work Phone: [facility] 12-13-2024 08:59-0400 SaO2% (BldA) [Mass fraction] 98 % Dr. Jose Salcedo MD Work Phone: [facility] 12-13-2024 08:59-0400 Systolic blood pressure 164 mm[Hg] Dr. Jose Salcedo MD Work Phone: [facility] 07-13-2024 13:38-0400 Body height 172.72 cm Kulwant Howard LPN [facility].; [facility]. 07-13-2024 13:38-0400 Body mass index (BMI) [Ratio] 19.92 kg/m2 Kulwant Howard LPN [facility].; [facility]. 07-13-2024 13:38-0400 Body surface area Derived from formula 1.71 m2 Kulwant Howard LPN [facility].; [facility] [employer] [facility], [facility]. 07-13-2024 13:38-0400 Body weight 59.42 kg Kulwant Howard LPN [facility].; [employer] [facility]. 07-13-2024 13:38-0400 Diastolic blood pressure 93 mm[Hg] Kulwant Howard LPN [facility].; [employer] [facility] Comment on above: Patient Position: Sitting; Cuff Location : Left Arm; Cuff Size: Standard 07-13-2024 13:38-0400 Heart rate 121 /min Kulwant Howard LPN [facility].; [employer] Comment on above: Pattern: Regular 07-13-2024 13:38-0400 Systolic blood pressure 169 mm[Hg] Kulwant Howard LPN [facility].; [employer], [facility]. Comment on above: Patient Position: Sitting; Cuff Location : Left Arm; Cuff Size: Standard 09-19-2023 09:48-0400 Body height 172.72 cm Eugenio Dillon LPN [facility] [employer] 09-19-2023 09:48-0400 Body mass index (BMI) [Ratio] 19.77 kg/m2 Eugenio Dillon LPN [facility].; [facility]. 09-19-2023 09:48-0400 Body surface area Derived from formula 1.7 m2 Eugeniogenevieve Dillon [facility], [facility].; [facility]. 09-19-2023 09:48-0400 Body weight 58.97 kg Eugeniogenevieve Dillon [facility], [facility].; [facility]. 09-19-2023 09:48-0400 Diastolic blood pressure 72 mm[Hg] Eugenio Dillon [facility], [facility].; [facility]. Comment on above: Patient Position: Sitting; Cuff Location : Left Arm; Cuff Size: Standard 09-19-2023 09:48-0400 Heart rate 92 /min Eugeniogenevieve Dillon [facility], [facility].; [facility] Comment on above: Pattern: Regular 09-19-2023 09:48-0400 Systolic blood pressure 113 mm[Hg] Eugeniogenevieve Dillon [facility], [facility].; [facility]. Comment on above: Patient Position: Sitting; Cuff Location : Left Arm; Cuff Size: Standard 06-30-2023 10:11-0400 Body height 172.72 cm Miranda Gaines SAFETY AND OCCUPATIONAL HEALTH MANAGER [facility].; [facility]. 06-30-2023 10:11-0400 Body mass index (BMI) [Ratio] 19.31 kg/m2 Miranda Gaines SAFETY AND OCCUPATIONAL HEALTH MANAGER [facility].; [facility]. 06-30-2023 10:11-0400 Body surface area Derived from formula 1.69 m2 Miranda Gaines SAFETY AND OCCUPATIONAL HEALTH MANAGER [facility].; [facility]. 06-30-2023 10:11-0400 Body weight 57.61 kg Miranda Gaines SAFETY AND OCCUPATIONAL HEALTH MANAGER [facility].; [facility]. 06-30-2023 10:11-0400 Diastolic blood pressure 90 mm[Hg] Miranda Gaines SAFETY AND OCCUPATIONAL HEALTH MANAGER [facility].; [facility] [facility] [employer] [facility], [facility]. Comment on above: Patient Position: Sitting; Cuff Location : Left Arm; Cuff Size: Large 06-30-2023 10:11-0400 Heart rate 80 /min Miranda Gaines [facility], [facility].; [employer]. Comment on above: Pattern: Regular 06-30-2023 10:11-0400 Systolic blood pressure 153 mm[Hg] Miranda Gaines SAFETY AND OCCUPATIONAL HEALTH MANAGER [facility] [employer] Comment on above: Patient Position: Sitting; Cuff Location : Left Arm; Cuff Size: Large 05-30-2023 15:36-0400 Body weight 59.88 kg Eugenio Dillon SAFETY AND OCCUPATIONAL HEALTH MANAGER [facility], [facility].; [employer], [employer]. 05-30-2023 15:36-0400 Diastolic blood pressure 83 mm[Hg] Eugenio Dillon SAFETY AND OCCUPATIONAL HEALTH MANAGER [facility] [facility] [facility], [facility] [employer], [employer]. Comment on above: Patient Position: Sitting; Cuff Location : Left Arm; Cuff Size: Standard 05-30-2023 15:36-0400 Heart rate 80 /min Eugenio Dillon SAFETY AND OCCUPATIONAL HEALTH MANAGER [facility], [facility].; [employer], [employer]. Comment on above: Pattern: Regular 05-30-2023 15:36-0400 Systolic blood pressure 136 mm[Hg] Eugenio Dillon SAFETY AND OCCUPATIONAL HEALTH MANAGER [facility] [facility] [employer] [facility], [facility] [employer], [employer]. Comment on above: Patient Position: Sitting; Cuff Location : Left Arm; Cuff Size: Standard 10-14-2022 11:43-0400 Body height 172.72 cm Jose Salcedo MD Work Phone: [facility] [employer] [facility], [employer]. 10-14-2022 11:43-0400 Body mass index (BMI) [Ratio] 20.98 kg/m2 Jose Salcedo MD Work Phone: [place] [employer] [facility], [employer], [facility]. 10-14-2022 11:43-0400 Body surface area Derived from formula 1.75 m2 Jose Salcedo MD Work Phone: [place] [employer] [facility], [employer].; [employer] 10-14-2022 11:43-0400 Body weight 62.6 kg Jose Salcedo MD Work Phone: [employer].; [employer]. 10-14-2022 11:43-0400 Diastolic blood pressure 80 mm[Hg] Jose Salcedo MD Work Phone: [employer].; [employer]. Comment on above: Patient Position: Sitting; Cuff Location : Left Arm; Cuff Size: Large 10-14-2022 11:43-0400 Heart rate 93 /min Jose Salcedo MD Work Phone: [employer].; [employer]. Comment on above: Pattern: Regular 10-14-2022 11:43-0400 Systolic blood pressure 132 mm[Hg] Jose Salcedo MD Work Phone: [employer].; [employer]. Comment on above: Patient Position: Sitting; Cuff Location : Left Arm; Cuff Size: Large 03-04-2022 16:05-0500 Body height 172.72 cm Jose Salcedo MD Work Phone: [employer].; [employer]. 03-04-2022 16:05-0500 Body mass index (BMI) [Ratio] 20.22 kg/m2 Jose Salcedo MD Work Phone: [employer].; [employer]. 03-04-2022 16:05-0500 Body surface area Derived from formula 1.72 m2 Jose Salcedo MD Work Phone: [employer].; [employer]. 03-04-2022 16:05-0500 Body weight 60.33 kg Jose Salcedo MD Work Phone: [employer].; [employer]. 03-04-2022 16:05-0500 Diastolic blood pressure 80 mm[Hg] Jose Salcedo MD Work Phone: [employer].; [employer]. Comment on above: Patient Position: Sitting; Cuff Location : Left Arm; Cuff Size: Large 03-04-2022 16:05-0500 Heart rate 80 /min Jose Salcedo MD Work Phone: [facility] [employer]. Comment on above: Pattern: Regular 03-04-2022 16:05-0500 Systolic blood pressure 136 mm[Hg] Jose Salcedo MD Work Phone: [facility] [employer].; [employer]. Comment on above: Patient Position: Sitting; Cuff Location : Left Arm; Cuff Size: Large 09-21-2021 13:06-0400 Body height 172.72 cm Kulwant Yeh MA [facility] [employer]. 09-21-2021 13:06-0400 Body mass index (BMI) [Ratio] 22.2 kg/m2 Kulwant Yeh MA [place] [employer] [facility].; [employer]. 09-21-2021 13:06-0400 Body surface area Derived from formula 1.79 m2 Kulwant Yeh MA [place] [employer] [facility].; [employer]. 09-21-2021 13:06-0400 Body weight 66.23 kg Kulwant Yeh MA [place] [employer] [facility].; [employer]. 09-21-2021 13:06-0400 Diastolic blood pressure 81 mm[Hg] Kulwant Yeh MA [place] [employer] [facility] [facility].; [employer]. Comment on above: Patient Position: Sitting; Cuff Location : Left Arm; Cuff Size: Standard 09-21-2021 13:06-0400 Heart rate 87 /min Kulwant Yeh MA [place] [employer] [facility].; [employer]. Comment on above: Pattern: Regular 09-21-2021 13:06-0400 Systolic blood pressure 134 mm[Hg] Kulwant Yeh MA [place] [employer].; [employer]. Comment on above: Patient Position: Sitting; Cuff Location : Left Arm; Cuff Size: Standard 06-25-2021 13:37-0400 Body height 172.72 cm Miranda Batistauckey CL [place] [employer].; [employer]. 06-25-2021 13:37-0400 Body mass index (BMI) [Ratio] 22.05 kg/m2 Miranda Gaines [facility], [facility].; [employer] [facility] 06-25-2021 13:37-0400 Body surface area Derived from formula 1.78 m2 Lianna Alvo [facility], [facility].; [employer] 06-25-2021 13:37-0400 Body weight 65.77 kg Lianna Liana [facility], [facility].; [employer] 06-25-2021 13:37-0400 Diastolic blood pressure 94 mm[Hg] Miranda Gaines [facility], [facility].; [employer] Comment on above: Patient Position: Sitting; Cuff Location : Left Arm; Cuff Size: Large 06-25-2021 13:37-0400 Heart rate 84 /min Lianna Liana [facility], [facility].; [employer] Comment on above: Pattern: Regular 06-25-2021 13:37-0400 Systolic blood pressure 148 mm[Hg] Miranda Gaines [facility], [facility].; [employer], [employer]. Comment on above: Patient Position: Sitting; Cuff Location : Left Arm; Cuff Size: Large 10-17-2020 [id number] Body height 172.72 cm Jose Salcedo MD Work Phone: [facility], [employer], [employer]. 10-17-2020 16:11-0400 Body mass index (BMI) [Ratio] 21.59 kg/m2 Jose Salcedo MD Work Phone: [place] [employer] [facility], [employer].; [employer]. 10-17-2020 16:11-0400 Body surface area Derived from formula 1.77 m2 Jose Salcedo MD Work Phone: [place] [employer] [facility], [employer].; [employer], [employer]. 10-17-2020 16:11-0400 Body weight 64.41 kg Jose Salcedo MD Work Phone: [place] [employer] [facility].; [employer]. 10-17-2020 16:11-0400 Diastolic blood pressure 60 mm[Hg] Jose Salcedo MD Work Phone: [employer].; [employer]. Comment on above: Patient Position: Sitting; Cuff Location : Left Arm; Cuff Size: Large 10-17-2020 16:11-0400 Heart rate 83 /min Jose Salcedo MD Work Phone: [employer].; [employer]. Comment on above: Pattern: Regular 10-17-2020 16:11-0400 Systolic blood pressure 124 mm[Hg] Jose Salcedo MD Work Phone: [employer].; [employer]. Comment on above: Patient Position: Sitting; Cuff Location : Left Arm; Cuff Size: Large 02-28-2020 11:57-0500 Body height 172.72 cm Evy Bojorquez RN [employer].; [employer]. 02-28-2020 11:57-0500 Body mass index (BMI) [Ratio] 20.68 kg/m2 Evy Bojorquez RN [employer].; [employer]. 02-28-2020 11:57-0500 Body surface area Derived from formula 1.74 m2 Evy Bojorquez RN [employer].; [employer]. 02-28-2020 11:57-0500 Body weight 61.69 kg Evy Bojorquez RN [employer].; [employer]. 02-28-2020 11:57-0500 Diastolic blood pressure 80 mm[Hg] Evy Bojorquez RN [employer].; [employer]. Comment on above: Patient Position: Sitting; Cuff Location : Right Arm; Cuff Size: Standard 02-28-2020 11:57-0500 Heart rate 86 /min Evy Bojorquez RN [employer].; [employer]. Comment on above: Pattern: Regular 02-28-2020 11:57-0500 Systolic blood pressure 144 mm[Hg] Evy Bojorquez RN [employer].; [employer] Comment on above: Patient Position: Sitting; Cuff Location : Right Arm; Cuff Size: Standard 01-03-2020 13:08-0400 Body height 172.72 cm Evy [facility]quez [facility].; [employer]. 01-03-2020 13:08-0400 Body mass index (BMI) [Ratio] 20.07 kg/m2 Evy Bojorquez RN [facility].; [employer]. 01-03-2020 13:08-0400 Body surface area Derived from formula 1.71 m2 Evy Bojorquez RN [place] [employer] [facility].; [employer]. 01-03-2020 13:08-0400 Body temperature 97.6 [degF] Evy Bojorquez RN [facility].; [employer]. Comment on above: Method: Tympanic 01-03-2020 13:08-0400 Body weight 59.88 kg Evy Bojorquez RN [place] [employer] [facility].; [employer]. 01-03-2020 13:08-0400 Inhaled oxygen concentration 20 % Evy Bojorquez RN [place] [employer] [facility].; [employer]. Comment on above: Room air 01-03-2020 13:08-0400 Inhaled oxygen concentration 21 % Evy Bojorquez RN [place] [employer].; [employer]. Comment on above: Room air 01-03-2020 13:08-0400 SaO2% (BldA) [Mass fraction] 96 % Evy Bojorquez RN [place] [employer] [facility].; [employer]. 09-24-2019 06:46-0400 Body height 172.72 cm Evy Bojorquez RN [place] [employer].; [employer]. 09-24-2019 06:46-0400 Body mass index (BMI) [Ratio] 19.92 kg/m2 Evy Bojorquez RN [place] [employer].; [employer]. 09-24-2019 06:46-0400 Body surface area Derived from formula 1.71 m2 Evy Bojorquez RN [place] [employer] [facility], [facility] [employer], [employer]. 09-24-2019 06:46-0400 Body weight 59.42 kg Evy Bojorquez RN [place] [employer], [employer].; [employer], [employer]. 09-24-2019 06:46-0400 Diastolic blood pressure 80 mm[Hg] Evy Bojorquez RN [place] [employer], [facility]. Comment on above: Patient Position: Sitting; Cuff Location : Right Arm; Cuff Size: Standard 09-24-2019 06:46-0400 Heart rate 114 /min Evy Bojorquez RN [place] [employer], [employer].; [employer]. Comment on above: Pattern: Regular 09-24-2019 06:46-0400 Systolic blood pressure 126 mm[Hg] Evy Bojorquez RN [place] [employer]. Comment on above: Patient Position: Sitting; Cuff Location : Right Arm; Cuff Size: Standard 02-22-2019 10:22-0500 Body height 172.72 cm Marely Jacobo LPN [place] [employer] [facility], [facility] [employer], [employer]. 02-22-2019 10:22-0500 Body mass index (BMI) [Ratio] 21.29 kg/m2 Marely Jacobo SAFETY AND OCCUPATIONAL HEALTH MANAGER [employer] [facility], [facility] [employer] 02-22-2019 10:22-0500 Body surface area Derived from formula 1.76 m2 Marely Jacobo LPN [employer] [facility], [facility] [employer], [employer]. 02-22-2019 10:22-0500 Body weight 63.5 kg Marely Jacobo LPN [employer]. 02-22-2019 10:22-0500 Diastolic blood pressure 94 mm[Hg] Marely Jacobo LPN [employer]. Comment on above: Patient Position: Sitting; Cuff Location : Left Arm; Cuff Size: Standard 02-22-2019 10:22-0500 Heart rate 92 /min Marely Jacobo LPN [employer]. Comment on above: Pattern: Regular 02-22-2019 10:22-0500 Systolic blood pressure 154 mm[Hg] Marelyjohnnie Jacobo LPN [employer].; [employer]. Comment on above: Patient Position: Sitting; Cuff Location : Left Arm; Cuff Size: Standard 02-01-2019 10:16-0500 Body height 172.72 cm Evy Bojorquez RN [employer].; [employer]. 02-01-2019 10:16-0500 Body mass index (BMI) [Ratio] 21.59 kg/m2 Evy Bojorquez RN [employer].; [employer]. 02-01-2019 10:16-0500 Body surface area Derived from formula 1.77 m2 Evy Bojorquez RN [employer].; [employer]. 02-01-2019 10:16-0500 Body temperature 97.4 [degF] Evy Bojorquez RN [employer].; [employer]. Comment on above: Method: Tympanic 02-01-2019 10:16-0500 Body weight 64.41 kg Evy Bojorquez RN [employer].; [employer]. 02-01-2019 10:16-0500 Diastolic blood pressure 83 mm[Hg] Evy Bojorquez RN [employer].; [employer]. Comment on above: Patient Position: Sitting; Cuff Location : Left Arm; Cuff Size: Standard 02-01-2019 10:16-0500 Heart rate 81 /min Evy Bojorquez RN [employer].; [employer]. Comment on above: Pattern: Regular 02-01-2019 10:16-0500 Systolic blood pressure 145 mm[Hg] Evy Bojorquez RN [employer].; [employer]. Comment on above: Patient Position: Sitting; Cuff Location : Left Arm; Cuff Size: Standard 11-24-2018 08:16-0400 Body height 172.72 cm Jose Salcedo MD Work Phone: [employer]; [employer]. 11-24-2018 08:16-0400 Body mass index (BMI) [Ratio] 21.44 kg/m2 Jose Salcedo MD Work Phone: [employer]; [employer]. 11-24-2018 08:16-0400 Body surface area Derived from formula 1.76 m2 Jose Salcedo MD Work Phone: [employer].; [employer]. 11-24-2018 08:16-0400 Body weight 63.96 kg Jose Salcedo MD Work Phone: [employer].; [employer]. 11-24-2018 08:16-0400 Diastolic blood pressure 78 mm[Hg] Jose Salcedo MD Work Phone: [employer].; [employer]. Comment on above: Patient Position: Sitting; Cuff Location : Left Arm; Cuff Size: Large 11-24-2018 08:16-0400 Heart rate 71 /min Jose Salcedo MD Work Phone: [employer]; [employer]. Comment on above: Pattern: Regular 11-24-2018 08:16-0400 Systolic blood pressure 136 mm[Hg] Jose Salcedo MD Work Phone: [employer].; [employer]. Comment on above: Patient Position: Sitting; Cuff Location : Left Arm; Cuff Size: Large 11-04-2018 09:30-0400 Body height 172.72 cm Evy Bojorquez RN [employer].; [employer]. 11-04-2018 09:30-0400 Body mass index (BMI) [Ratio] 21.74 kg/m2 Evy Bojorquez RN [employer].; [employer]. 11-04-2018 09:30-0400 Body surface area Derived from formula 1.77 m2 Evy Bojorquez RN [employer].; [employer]. 11-04-2018 09:30-0400 Body temperature 97.4 [degF] Evy Bojorquez RN [facility] [employer] Comment on above: Method: Tympanic 11-04-2018 09:30-0400 Body weight 64.86 kg Evy Bojorquez RN [facility], [facility] [employer] 11-04-2018 09:30-0400 Diastolic blood pressure 83 mm[Hg] Evy Bojorquez RN [facility], [facility] [employer] Comment on above: Patient Position: Sitting; Cuff Location : Left Arm; Cuff Size: Standard 11-04-2018 09:30-0400 Heart rate 101 /min Evy Bojorquez RN [facility], [facility] [employer] Comment on above: Pattern: Regular 11-04-2018 09:30-0400 Systolic blood pressure 128 mm[Hg] Evy Bojorquez RN [facility], [facility] [employer] Comment on above: Patient Position: Sitting; Cuff Location : Left Arm; Cuff Size: Standard 11-12-2017 07:16-0400 Body height 172.72 cm Miranda Gaines LPN [facility], [facility] [employer] 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 11-12-2017 07:16-0400 Body surface area Derived from formula 1.78 m2 Miranda Gaines LPN [facility] [employer] 11-12-2017 07:16-0400 Body weight 65.77 kg Miranda Gaines LPN [facility] [employer] [facility], [facility] [employer] 11-12-2017 07:16-0400 Diastolic blood pressure 86 mm[Hg] Miranda Gaines LPN [place] [employer] [facility], [facility] [employer] Comment on above: Patient Position: Sitting; Cuff Location : Left Arm; Cuff Size: Large 11-12-2017 07:16-0400 Heart rate 84 /min Miranda Gaines LPN [place] [employer].; [employer]. Comment on above: Pattern: Regular 11-12-2017 07:16-0400 Systolic blood pressure 130 mm[Hg] Miranda Gaines CL [employer] [facility], [employer].; [employer]. Comment on above: Patient Position: Sitting; Cuff Location : Left Arm; Cuff Size: Large 10-28-2016 10:23-0400 Body height 172.72 cm Yenifer Beal LPN [employer] [facility] [employer]. 10-28-2016 10:23-0400 Body mass index (BMI) [Ratio] 21.29 kg/m2 Yenifer Beal LPN [employer]. 10-28-2016 10:23-0400 Body surface area Derived from formula 1.76 m2 Yenifer Beal LPN [employer] [facility] [employer]. 10-28-2016 10:23-0400 Body weight 63.5 kg Yenifer Beal LPN [employer].; [employer]. 10-28-2016 10:23-0400 Diastolic blood pressure 88 mm[Hg] Yenifer Beal SAFETY AND OCCUPATIONAL HEALTH MANAGER [employer].; [employer]. Comment on above: Patient Position: Sitting; Cuff Location : Left Arm; Cuff Size: Standard 10-28-2016 10:23-0400 Heart rate 80 /min Yenifer Beal LPN [employer].; [employer]. Comment on above: Pattern: Regular 10-28-2016 10:23-0400 Systolic blood pressure 144 mm[Hg] Yenifer Beal LPN [employer].; [employer]. Comment on above: Patient Position: Sitting; Cuff Location : Left Arm; Cuff Size: Standard 08-30-2015 07:42-0400 Body height 172.72 cm Jose Salcedo MD Work Phone: [employer].; [employer]. 08-30-2015 07:42-0400 Body mass index (BMI) [Ratio] 21.44 kg/m2 Jose Salcedo MD Work Phone: [employer].; [employer]. 08-30-2015 07:42-0400 Body surface area Derived from formula 1.76 m2 Jose Salcedo MD Work Phone: [employer].; [employer]. 08-30-2015 07:42-0400 Body weight 63.96 kg Jose Salcedo MD Work Phone: [employer].; [employer]. 08-30-2015 07:42-0400 Diastolic blood pressure 89 mm[Hg] Jose Salcedo MD Work Phone: [employer].; [employer]. Comment on above: Patient Position: Sitting; Cuff Location : Left Arm; Cuff Size: Large 08-30-2015 07:42-0400 Heart rate 76 /min Jose Salcedo MD Work Phone: [employer].; [employer]. Comment on above: Pattern: Regular 08-30-2015 07:42-0400 Systolic blood pressure 146 mm[Hg] Jose Salcedo MD Work Phone: [employer].; [employer]. Comment on above: Patient Position: Sitting; Cuff Location : Left Arm; Cuff Size: Large 10-05-2013 08:00-0400 Body height 172.72 cm Miranda Dunn Liana SAFETY AND OCCUPATIONAL HEALTH MANAGER [employer].; [employer]. 10-05-2013 08:00-0400 Body mass index (BMI) [Ratio] 21.59 kg/m2 [facility] [employer]. 10-05-2013 08:00-0400 Body surface area Derived from formula 1.77 m2 [facility] [employer]. 10-05-2013 08:00-0400 Body temperature 98.8 [degF] LiannaMona Gaines SAFETY AND OCCUPATIONAL HEALTH MANAGER [employer].; [employer]. Comment on above: Method: Tympanic 10-05-2013 08:00-0400 Body weight 64.41 kg Miranda Gaines CL [facility] [employer] [facility], [employer]. 10-05-2013 08:00-0400 Diastolic blood pressure 97 mm[Hg] Miranda Gaines SAFETY AND OCCUPATIONAL HEALTH MANAGER [facility] [employer] [facility], [employer]. Comment on above: Patient Position: Sitting; Cuff Location : Left Arm; Cuff Size: Large 10-05-2013 08:00-0400 Heart rate 103 /min Miranda Gaines CL [facility], [facility].; [employer], [employer]. Comment on above: Pattern: Regular 10-05-2013 08:00-0400 Inhaled oxygen concentration 20 % Miranda Gaines [facility], [facility].; [employer], [employer]. Comment on above: Room air 10-05-2013 08:00-0400 Inhaled oxygen concentration 21 % Miranda Gaines SAFETY AND OCCUPATIONAL HEALTH MANAGER [facility].; [employer], [employer]. Comment on above: Room air 10-05-2013 08:00-0400 SaO2% (BldA) [Mass fraction] 98 % Miranda Gaines SAFETY AND OCCUPATIONAL HEALTH MANAGER [facility].; [employer], [employer] in [employer]. 10-05-2013 08:00-0400 Systolic blood pressure 161 mm[Hg] Miranda Gaines SAFETY AND OCCUPATIONAL HEALTH MANAGER [facility] [employer], [employer]. Comment on above: Patient Position: Sitting; Cuff Location : Left Arm; Cuff Size: Large 06-04-2013 10:28-0400 Body weight 66.68 kg Yenifer Beal LPN [facility] [employer] [facility] 06-04-2013 10:28-0400 Diastolic blood pressure 79 mm[Hg] Yenifer Beal LPN [facility] [employer], [employer]. Comment on above: Patient Position: Sitting; Cuff Location : Left Arm; Cuff Size: Standard 06-04-2013 10:28-0400 Heart rate 113 /min Yenifer Beal LPN [facility], [employer], [employer]. Comment on above: Pattern: Regular 06-04-2013 10:28-0400 Systolic blood pressure 123 mm[Hg] Yenifer Beal LPN [facility] [employer]. Comment on above: Patient Position: Sitting; Cuff Location : Left Arm; Cuff Size: Standard 01-29-2013 07:00-0500 Body temperature 96.8 [degF] Yenifer Beal [facility], [facility].; [employer], [facility]. 01-29-2013 07:00-0500 Body weight 68.49 kg Yenifer Roro Beal [facility], [facility].; [place] [employer] [facility]. 01-29-2013 07:00-0500 Diastolic blood pressure 93 mm[Hg] Yenifer Roro Emigdio [facility] [employer] [facility].; [employer]. Comment on above: Patient Position: Sitting; Cuff Location : Left Arm; Cuff Size: Standard 01-29-2013 07:00-0500 Heart rate 94 /min Yenifer Roro Emigdio [facility], [facility].; [employer]. Comment on above: Pattern: Regular 01-29-2013 07:00-0500 Systolic blood pressure 161 mm[Hg] Yenifer Roro Emigdio [facility] [employer] [facility], [facility].; [employer]. Comment on above: Patient Position: Sitting; Cuff Location : Left Arm; Cuff Size: Standard 01-22-2012 15:19-0500 Body height 172.72 cm Jose Salcedo MD Work Phone: [employer] [facility].; [employer]. 01-22-2012 15:19-0500 Body mass index (BMI) [Ratio] 22.35 kg/m2 Jose Salcedo MD Work Phone: [employer].; [employer]. 01-22-2012 15:19-0500 Body surface area Derived from formula 1.79 m2 Jose Salcedo MD Work Phone: [employer].; [employer]. 01-22-2012 15:19-0500 Body weight 66.68 kg Jose Salcedo MD Work Phone: [employer].; [employer]. 01-22-2012 15:19-0500 Diastolic blood pressure 84 mm[Hg] Jose Salcedo MD Work Phone: [employer].; [employer]. Comment on above: Patient Position: Sitting; Cuff Location : Left Arm; Cuff Size: Large 01-22-2012 15:19-0500 Heart rate 87 /min Jose Salcedo MD Work Phone: [facility].; [employer]. Comment on above: Pattern: Regular 01-22-2012 15:19-0500 Systolic blood pressure 142 mm[Hg] Jose Salcedo MD Work Phone: [place] [employer] [facility].; [employer]. Comment on above: Patient Position: Sitting; Cuff Location : Left Arm; Cuff Size: Large 01-14-2011 17:05-0400 Body temperature 96.8 [degF] Yenifer Beal [facility], [facility].; [employer]. 01-14-2011 17:05-0400 Body weight 64.64 kg Yenifer Beal [facility] [employer] [facility], [facility].; [employer]. 01-14-2011 17:05-0400 Diastolic blood pressure 103 mm[Hg] Yenifer Beal [facility] [employer] [facility], [employer].; [employer]. Comment on above: Patient Position: Sitting; Cuff Location : Left Arm; Cuff Size: Standard 01-14-2011 17:05-0400 Heart rate 80 /min Yenifer Beal LPN [place] [employer] [facility], [employer].; [employer]. Comment on above: Pattern: Regular 01-14-2011 17:05-0400 Systolic blood pressure 176 mm[Hg] Yenifer Beal [facility] [employer] [facility], [employer].; [employer]. Comment on above: Patient Position: Sitting; Cuff Location : Left Arm; Cuff Size: Standard 11-28-2010 10:50-0400 Body height 172.72 cm Miranda Dunn Liana [facility] [employer] [facility], [facility].; [employer]. 11-28-2010 10:50-0400 Body mass index (BMI) [Ratio] 21.13 kg/m2 LiannaMona Gaines [facility] [employer] [facility], [facility].; [employer]. 11-28-2010 10:50-0400 Body surface area Derived from formula 1.75 m2 Miranda Gaines LPN [facility] [employer] [facility], [employer]. 11-28-2010 10:50-0400 Body weight 63.05 kg Miranda Gaines SAFETY AND OCCUPATIONAL HEALTH MANAGER [facility], [facility].; [employer] [facility] 11-28-2010 10:50-0400 Diastolic blood pressure 106 mm[Hg] Miranda Gaines [facility] [employer] [facility], [employer]. Comment on above: Patient Position: Sitting; Cuff Location : Left Arm; Cuff Size: Large 11-28-2010 10:50-0400 Heart rate 82 /min Miranda Gaines [facility] [employer] [facility], [employer]. Comment on above: Pattern: Regular 11-28-2010 10:50-0400 Systolic blood pressure 167 mm[Hg] Miranda Gaines [facility] [employer] [facility], [employer]. Comment on above: Patient Position: Sitting; Cuff Location : Left Arm; Cuff Size: Large Encounters Encounter Date Encounter Type Care Provider Facility Start: 12-27-2024 ambulatory [facility] Facilit y:[facility] Start: 12-27-2024 ambulatory Megan Badur Facilit y:[facility] Start: 12-22-2024 End: 12-22-[facility] Start: 12-13-2024 End: 12-13-[address] Megan Farah MD [facility] Work Phone: Start: 12-13-2024 End: 12-13-[address] Jose Salcedo MD Work Phone: [facility] Start: 12-06-2024 End: 12-06-2024 ambulatory [facility] Start: 09-27-2024 End: 09-27-2024 Medication Jose Salcedo MD Work Phone: [facility] Start: 09-22-2024 End: 09-22-2024 ambulatory JOSE SALCEDO [facility] Start: 07-19-2024 End: 07-19-2024 Orders Jose [facility]cedo MD [facility] Start: 07-13-2024 End: 07-13-2024 Patient encounter procedure Jose Salcedo MD [facility] Start: 07-13-2024 Review Jose Salcedo MD Work Phone: [facility] Start: 02-03-2024 Review Jose Salcedo MD Work [facility]: [facility] Start: 11-16-2023 End: 11-16-2023 ambulatory [facility] Start: 11-16-2023 End: 11-16-2023 Phone Encounter Jose Salcedo MD Work Phone: [facility] Start: 09-30-2023 End: 09-30-2023 ambulatory JOSE [facility] Start: 09-19-2023 End: 09-19-2023 Patient encounter procedure Jose Salcedo MD Work Phone: [facility]; [facility] Start: 09-19-2023 End: 09-19-2023 Periodic preventive med est patient 18-39 yrs Jose Salcedo MD Work Phone: [facility] Start: 09-09-2023 End: 09-09-2023 Orders Jose Salcedo MD Work Phone: [facility] Start: 09-02-2023 End: 09-02-2023 ambulatory BEREKET CONNORS [facility] Start: 08-08-2023 End: 08-08-2023 ambulatory BEREKET CONNORS [facility] Start: 07-23-2023 Non-patient / Non-visit Dr. Tre Salcedo Work Phone: [facility] Start: 07-23-[address] Jose Salcedo Work Phone: [facility]-Pulmonary Services/Neurology Work Phone: Start: 07-22-2023 End: 07-22-2023 Orders Jose Salcedo MD Work Phone: [employer]. Start: 07-21-2023 End: 07-21-2023 Medication Jose Salcedo MD Work Phone: [employer]. Start: 07-17-2023 Non-patient / Non-visit Dr. Tre Salcedo Work Phone: [facility] Start: 07-17-2023 End: 07-17-[address] Jose Salcedo Work Phone: [facility] Work Phone: Start: 07-17-2023 End: 07-17-[address] Jose Salcedo Work Phone: [facility]-Pulmonary Services/Neurology Work Phone: Start: 06-30-2023 End: 06-30-2023 Office outpatient visit 15 minutes Jose Salcedo MD Work Phone: [employer]. Start: 06-03-2023 End: 06-03-2023 Orders Jose Salcedo MD Work Phone: [employer]. Start: 05-30-2023 End: 05-30-2023 Office outpatient visit 15 minutes Jose Salcedo MD Work Phone: [employer] Start: 10-14-2022 End: 10-14-2022 Patient encounter status Miranda Gaines CL [employer].; [employer]. Start: 10-14-2022 End: 10-14-2022 Periodic preventive med est patient 40-64yrs Jose Salcedo MD Work Phone: [employer]. Start: 09-11-2022 End: 09-16-2022 Orders Jose Salcedo MD Work Phone: [employer]. Start: 08-22-2022 End: 08-26-2022 Orders Jose Salcedo MD Work Phone: [employer]. Start: 03-04-2022 End: 03-04-2022 Office outpatient visit 10 minutes Jose Salcedo MD Work Phone: [employer] Start: 02-05-2022 End: 02-05-2022 Telephone follow-up Jose Salcedo MD Work Phone: [employer] Start: 09-21-2021 End: 09-21-2021 Patient encounter procedure Jose Salcedo MD Work Phone: [employer] Start: 06-25-2021 End: 06-25-2021 Patient encounter status Jose Salcedo MD Work Phone: [employer]; [employer]. Start: 06-25-2021 End: 06-25-2021 Periodic preventive med est patient 40-64yrs Jose Salcedo MD Work Phone: [employer]. Start: 10-17-2020 End: 10-17-2020 Office outpatient visit 15 minutes Jose Salcedo MD Work Phone: [employer] Start: 02-28-2020 End: 02-28-2020 Manual pelvic examination Jose Salcedo MD Work Phone: [employer]; [employer]. Start: 02-28-2020 End: 02-28-2020 Periodic preventive med est patient 40-64yrs Jose Salceod MD Work Phone: [employer] Start: 02-17-2020 End: 02-21-2020 Orders Jose Salcedo MD Work Phone: [employer]. Start: 01-24-2020 End: 01-25-2020 Orders Jose Salcedo MD Work Phone: [employer] Start: 01-03-2020 End: 01-03-2020 Patient encounter procedure Jose Salcedo MD Work Phone: [employer] Start: 12-13-2019 End: 12-13-2019 Historical Summary Jose Salcedo MD Work Phone: [employer] Start: 11-12-2019 End: 11-12-2019 Orders Jose Salcedo MD Work Phone: [employer]. Start: 09-24-2019 End: 09-24-2019 Office outpatient visit 15 minutes Jose Salcedo MD Work Phone: [employer]. Start: 08-12-2019 End: 08-12-2019 Follow-up encounter Jose Salcedo MD Work Phone: [employer]. Start: 05-03-2019 End: 05-03-2019 Medication Jose Salcedo MD Work Phone: [employer]. Start: 05-03-2019 End: 05-03-2019 Orders Jose Salcedo MD Work Phone: [employer]. Start: 03-02-2019 End: 03-02-2019 Orders Jose Salcedo MD Work Phone: [employer]. Start: 03-01-2019 End: 03-01-2019 Historical Summary Jose Salcedo MD Work Phone: [employer] Start: 02-22-2019 End: 02-22-2019 Office outpatient visit 15 minutes Jose Salcedo MD Work Phone: [employer]. Start: 02-01-2019 End: 02-01-2019 Office outpatient visit 10 minutes Jose Salcedo MD Work Phone: [employer] Start: 11-24-2018 End: 11-24-2018 Patient encounter status Jose Salcedo MD Work Phone: [employer].; [employer]. Start: 11-24-2018 End: 11-24-2018 Periodic preventive med est patient 40-64yrs Jose Salcedo MD Work Phone: [employer]. Start: 11-04-2018 End: 11-04-2018 Office outpatient visit 15 minutes Jose Salcedo MD Work Phone: [employer] Start: 10-27-2018 End: 10-27-2018 Orders Jose Salcedo MD Work Phone: [employer]. Start: 11-12-2017 End: 11-12-2017 Orders Jose Salcedo MD Work Phone: [employer]. Start: 11-12-2017 End: 11-12-2017 Office outpatient visit 15 minutes Jose Salcedo MD Work Phone: [employer]. Start: 11-12-2017 End: 11-12-2017 Patient encounter status Miranda Gaines SAFETY AND OCCUPATIONAL HEALTH MANAGER [employer].; [employer]. Start: 10-28-2016 End: 10-28-2016 Patient encounter status Jose Salcedo MD Work Phone: [employer].; [employer]. Start: 10-28-2016 End: 10-28-2016 Periodic preventive med est patient 40-64yrs Jose Salcedo MD Work Phone: [employer]. Start: 10-09-2016 End: 10-09-2016 Orders Jose Salcedo MD Work Phone: [employer]. Start: 08-30-2015 End: 08-30-2015 Patient encounter status Jose Salcedo MD Work Phone: [employer].; [employer] Start: 08-30-2015 End: 08-30-2015 Periodic preventive med est patient 40-64yrs Jose Salcedo MD Work Phone: [employer]. Start: 08-11-2015 End: 08-11-2015 Orders Jose Salcedo MD Work Phone: [employer]. Start: 03-21-2015 End: 03-21-2015 Medication Jose Salcedo MD Work Phone: [employer]. Start: 11-23-2014 End: 11-23-2014 Medication Jose Salcedo MD Work Phone: [employer]. Start: 04-04-2014 End: 04-04-2014 Medication Jose Salcedo MD Work Phone: [employer]. Start: 12-24-2013 End: 12-24-2013 Medication Jose Salcedo MD Work Phone: [employer]. Start: 10-18-2013 End: 10-18-2013 Medication Jose Salcedo MD Work Phone: [employer]. Start: 10-05-2013 End: 10-05-2013 Office outpatient visit 25 minutes Jose Salcedo MD Work Phone: [employer]. Start: 06-04-2013 End: 06-04-2013 Patient encounter procedure Jose Salcedo MD Work Phone: [employer]. Start: 04-23-2013 End: 04-23-2013 Medication Jose Salcedo MD Work Phone: [employer]. Start: 01-29-2013 End: 01-29-2013 Patient encounter procedure Jose Salcedo MD Work Phone: [employer]. Start: 2013 End: 2013 Medication Jose Salcedo MD Work Phone: [employer]. Start: 07-22-2012 End: 07-22-2012 Medication Jose Salcedo MD Work Phone: [employer]. Start: 03-24-2012 End: 03-24-2012 Medication Jose Salcedo MD Work Phone: [employer]. Start: 01-22-2012 End: 01-22-2012 Patient encounter procedure Jose Salcedo MD Work Phone: [employer]. Start: 07-08-2011 End: 07-08-2011 Medication Jose Salcedo MD Work Phone: [employer]. Start: 05-15-2011 End: 05-15-2011 Medication Jose Salcedo MD Work Phone: [employer]. Start: 01-23-2011 End: 01-23-2011 Medication Jose Salcedo MD Work Phone: [employer]. Start: 01-14-2011 End: 01-14-2011 Patient encounter procedure Jose Salcedo MD Work Phone: [employer]. Start: 01-11-2011 End: 01-11-2011 Medication Jose Salcedo MD Work Phone: [employer]. Start: 11-28-2010 End: 11-28-2010 Patient encounter procedure Jose Salcedo MD Work Phone: [employer]. Start: 11-13-2010 End: 11-13-2010 Medication Jose Salcedo MD Work Phone: [employer]. Start: 09-11-2010 End: 09-11-2010 Medication Jose Salcedo MD Work Phone: [employer]. Start: 06-25-2010 End: 06-25-2010 Medication Jose Salcedo MD Work Phone: [employer]. Start: 06-25-2010 End: 06-25-2010 Historical Summary Jose Salcedo MD Work Phone: [employer]. Start: 05-14-2010 End: 05-14-2010 Medication Jose Salcedo MD Work Phone: [employer]. Start: 03-05-2010 End: 03-05-2010 Medication Jose Salcedo MD Work Phone: [employer]. Start: 03-05-2010 End: 03-05-2010 Historical Summary Jose Salcedo MD Work Phone: [employer] Manual pelvic examination Rena Odell PA-C Work Phone: [facility].; [employer], [facility]. Patient encounter status Marely Jacobo SAFETY AND OCCUPATIONAL HEALTH MANAGERPeter [facility] [employer] [facility].; [employer] Patient encounter status Jose Salcedo MD Work Phone: [place] [employer] [facility].; [employer], [facility]. Patient encounter status Eugenio Dillon SAFETY AND OCCUPATIONAL HEALTH MANAGER [facility].; [employer] Patient encounter status Eugenio Dillon SAFETY AND OCCUPATIONAL HEALTH MANAGER [facility].; [employer]. Patient encounter status Kulwant Howard SAFETY AND OCCUPATIONAL HEALTH MANAGERTgh [facility] River[facility]Q [facility].; [employer] Procedures Date Procedure Procedure Detail Performing Clinician Start: 11-16-2023 End: 11-19-2023 Radex foot complete minimum 3 views Amisha Godoy MD Work Phone: Start: 09-19-2023 End: 09-19-2023 Depression screening Jose Salcedo MD Work Phone: Start: 09-19-2023 End: 09-19-2023 Falls risk assessment documented Jose Salcedo MD Work Phone: Start: 09-19-2023 End: 09-19-2023 Pos clin depres scrn f/u doc Jose Salcedo MD Work Phone: Start: 09-19-2023 End: 09-19-2023 Pt falls assess docd w/o fall/injury past year Jose Salcedo MD Work Phone: Start: 09-09-2023 End: 10-02-2023 Screening digital breast tomosynthesis bi Jose Salcedo MD Work Phone: Start: 06-30-2023 End: 07-22-2023 Ndl emg 4 xtr w/wo related paraspinal areas Jose Salcedo MD Work Phone: Start: 06-03-2023 End: 07-24-2023 Ndl emg 4 xtr w/wo related paraspinal areas Jose Salcedo MD Work Phone: Start: 10-14-2022 End: 10-14-2022 Depression screening Jose Salcedo MD Work Phone: Start: 10-14-2022 End: 10-14-2022 Scr dep neg, no plan reqd Jose Salcedo MD Work Phone: Start: 09-12-2022 End: 09-12-2022 Lipid panel Miranda Gaines LP N Start: 09-11-2022 End: 09-13-2022 Screening digital breast tomosynthesis bi Jose Salcedo MD Work Phone: Start: 01-15-2022 End: 01-15-2022 Right hemicolectomy Miranda Gaines LP N Start: 09-21-2021 End: 09-21-2021 Triamcinolone acet inj NOS Arabella J Pal sarika PA-C Work Phone: Start: 06-25-2021 End: 06-25-2021 Depression screening Jose Salcedo MD Work Phone: Start: 06-25-2021 End: 06-25-2021 Pos clin depres scrn f/u doc Jose Salcedo MD Work Phone: Start: 06-25-2021 End: 07-12-2021 Screening mammography bi 2-view breast inc cad Jose Salcedo MD Work Phone: Start: 02-28-2020 End: 02-28-2020 Depression screening Jose Salcedo MD Work Phone: Start: 02-28-2020 End: 02-28-2020 Pos clin depres scrn f/u doc Jose Salcedo MD Work Phone: Start: 12-08-2019 End: 12-08-2019 Screening colonoscopy Miranda Gaines CL Comment on above: Dr. Rodriguez, multiple polyps-waiting on path results Start: 02-22-2019 End: 02-22-2019 Cologuard Miranda Gaines LP N Comment on above: Abnormal. Positive Start: 11-24-2018 End: 11-24-2018 Flu imm no admin doc ramsey Jose Baker Work Phone: Start: 11-24-2018 End: 03-02-2019 Oncology colorectal screening estela 10 dna markrs Jose Salcedo MD Work Phone: Start: 10-27-2018 End: 02-05-2019 Screening mammography bi 2-view breast inc cad Jose Salcedo MD Work Phone: Start: 10-09-2016 End: 10-28-2016 Screening mammography bi 2-view breast inc cad Jose Salcedo MD Work Phone: Abdominal hysterectomy Miranda Gaines SAFETY AND OCCUPATIONAL HEALTH MANAGER Comment on above: partial Abdominal hysterectomy Tj Dillon SAFETY AND OCCUPATIONAL HEALTH MANAGER Comment on above: partial facial surgeries Miranda Quick uriah SAFETY AND OCCUPATIONAL HEALTH MANAGER facial surgeries Eugenio Wilian n SAFETY AND OCCUPATIONAL HEALTH MANAGER Foot surgeries Miranda Millan primitivo SAFETY AND OCCUPATIONAL HEALTH MANAGER Foot surgeries Eugenio Dillon LPN Plan of Treatment Date Care Activity Detail Author Start: 02-02-2025 [facility] Start: 01-26-2025 [facility] Start: 12-28-2024 Patient encounter procedure Medical; PHYSICAL - awv, pt refused BW at this time (anthem pathway) [employer]. Start: 28-Dec-2024 09:00-04:00 MD Jose Salcedo Appointment Request [facility] Start: 12-13-2024 Ankle brachial pressure index [facility] Start: 12-13-2024 Complete blood count [facility] Start: 12-13-2024 Folic acid measurement, RBC [facility] Start: 12-13-2024 Thiamine measurement [facility] Start: 12-13-2024 Thyroid stimulating hormone measurement [facility] Start: 12-13-2024 Vitamin B12 measurement [facility] Start: 12-13-2024 Vitamin B6 measurement [facility] Start: 12-13-2024 Vitamin D, 1,25-dihydroxy measurement [facility] Start: 12-13-2024 [facility] Start: 11-16-2023 Radex foot complete minimum 3 views Foot, Left Complete x-ray ([id number]) Start: 16-Nov-2023 Intent [employer] Start: 09-19-2023 Patient encounter procedure Medical; PHYSICAL - awv [employer]. Start: 19-Sep-2023 09:50-04:00 MD Jose Salcedo Appointment Request [employer]. Start: 09-09-2023 Screening digital breast tomosynthesis bi Mammogram 3D (tomosynthesis), bilateral ([id number]) Start: 09-Sep-2023 Intent [employer], [employer] Start: 06-30-2023 Ndl emg 4 xtr w/wo related paraspinal areas NERVE CONDUCTION TEST/EMG, 4 extremities ([id number], [id number]) Start: 30-Jun-2023 Intent [employer].; [employer] Start: 06-03-2023 Ndl emg 4 xtr w/wo related paraspinal areas NERVE CONDUCTION TEST/EMG, 4 extremities ([id number], [id number]) Start: 03-Jun-2023 Intent [employer]. Comprehensive metabo lic 1999 panel - Serum or Plasma [facility] Cytoplasmic ANCA Screen os ter [facility] Erythrocyte sediment ation rate [facility] Lipid 1995 panel - S jovi or Plasma [facility] Magnesium measurement Wooste r [facility] MR Cervical spine [facility] MR Lumbar spine [facility] Immunizations Immunization Date Immunization Notes Care Provider Fa cility 11-24-2018 measles, mumps and rubella virus vaccine Jose Salcedo MD Work Phone: [employer]; [employer]. Comment on above: Site: Left ArmVIS Gi jose: * Measles/Mumps/Rubella (MMR) (04/28/17) 10-28-2016 tetanus toxoid, redu darío diphtheria toxoid, and acellular pertussis vaccine, adsorbed Jose Salcedo MD Work Phone: [employer]; [employer]. Comment on above: Site: Deltoid (Right )VIS Given: * Tdap (Tetanus, Diphtheria, Pertussis) (05/10/14) Payers Date Payer Category Payer Unknown [id number] 2024 Unknown [id number] 2024 Self-pay [id number] 2003 Unknown [id number] 1963 Unknown [id number] 2.16.8 [id number] 1963 Unknown [id number] 2.16.8 [id number] 1963 Unknown [id number] 2.16.8 [id number] 1963 Unknown [id number] 2.16.8 [id number] 1963 Unknown [id number] 2.16. [id number] 1963 Unknown [id number] 2.16. [id number] 1963 Unknown [id number] 2.16. [id number] Unknown Unknown COMMERCIAL OTHER [id number] 2 [id number] Unknown [id number] 2.16.8 [id number] Unknown [id number] 2.16.8 [id number] Unknown [id number] 2.16.8 [id number] Unknown [id number] 2.16.8 [id number] Social History Date Type Detail Facility Alcohol Use: Alcohol Use: ; M ore than 7 drinks per week. [facility] [employer] Caffeine Use Caffeine Use [facility] [employer] Tobacco Use: Tobacco Use: ; Current every day smoker. [facility] [facility] [employer] Start: 1965 Female [facility] Smokes tobacco daily [employer], [employer] [facility] Work Phone: [facility] if ever smoked [facility] Work Phone: Sex Female [facility] Progress note 12-13-2024 Note Date & Type Note Facility 12-13-2024 Progress note [facility] Procedure note 07-17-2023 Note Date & Type Note Facility 07-17-2023 Procedure note [facility] Evaluation note Note Date & Type Note Facility Evaluation note No assessment information availa ble [facility] Work Phone: Evaluation note Note Date & Type Note Facility Evaluation note Diagnosis Onset Date Resolution Cerebrovascular disease acute S eptember 2024 8:50am Low back pain acute November 162024 8:50am Lumbar radiculopathy acute Nov 8:50am Neck pain acute November 8:50am Neuropathy acute November 8:50am Paresthesias acute December 132024 8:50am [facility] Work Phone: Progress note Note Date & Type Note Facility Progress note Note Date/Time December 13, 2024 10:30am [facility] [address] [facility] [facility], [address] [place] [address] OFFICE VISIT Date of Service: 12/13/24 MR#: [id number] Acct: [id number] Name: KLAUS HERNANDEZ Rep #: [id number] : [id number] Provider: Dr. Andrews Farah MD Age/Sex: 59/F Location: [facility] [place] Status: Signed HPI HPI Chief Complaint: Est Care Details: History: The patient is a 59-year-old left-handed woman with a past medical history ofhypertension, hyperlipidemia, and precancerous colonic polyps status post resection who presents for evaluation of paresthesias. She has been experiencing intermittent sharp and tingling pain that extends from the feet to the thighs that is most prominent at night though it does also occur during the day; these began around 2004. Since 2023, she has been experiencing nighttime leg restlessness. She has been experiencing numbness in the feet since around 2019. She reports having weakness in the arms, hands and legs. She has had chronic neck pain since around 2014. She has had chronic low back pain since she was a teenager. She has also been experiencing intermittent bilateral lowerextremity radicular pain extending from the hips to the shins. She describes having left gluteal claudication when she ambulates. She has also been experiencing occasional stinging type sensation in the legs, torso andarms. She has bilateral jaw region pain. She has had prior bilateral temporomandibular joint surgery. She experiences occasional occurrences of right or left sided parietal region head pain that lasts about 3 hours and occurs about once every 2 weeks; her head pain began around 2022. She reports having a Raynaud's syndrome affecting the fingers and feet. She states that when she is exposed to cold temperatures, her fingers and feet become cold and turn purplish. A head MRI in 2023 revealed mild bilateral subcortical white matter changes that were nonspecific, but that I suspect most likely represent chronic small vessel ischemic disease. EMG/nerve conduction studies of the upper extremities were normal. EMG/nerve conduction studies of the lower extremities revealed a nonlocalizable left peroneal mononeuropathy and tibialis anterior muscle changesraising concern for the presence of bilateral L5 radiculopathies. Past Medical History: As above. There is no history of diabetes mellitus, heart disease, lung disease, stroke, seizure, thyroid disease, sleep apnea, or renal disease. Social History: She smokes tobacco. Over recent years she has consumed about 12 cans of beerper week (she states that over the past 3 weeks she has reduced her alcohol consumption to about 5 cans of beer per week). She does not use illicit drugs. Family History: The patient's sister has seizures and a diabetic neuropathy. The patient's father had a stroke. There is no family history of multiple sclerosis or cerebral aneurysm. Review of Systems: As above. The patient has not had any recent fever, rash, chest pain, shortness of breath or gastrointestinal problems. She has insomnia; she has difficulty falling asleep at night. She has depression and anxiety. She has urinary frequency and urinary urgency. She has lost 10 pounds over the past year. Physical Exam: General: Well-developed, well-nourished female in no acute distress. Neuro: The patient is awake and alert and responds appropriately; speech is fluent; language function is within normal limits Cranial nerves: PERRL, 3mm bilaterally; EOMI; visual victor are full; visual acuity is 20/20 bilaterally; face is symmetrical; tongue is midline; there are no deficits to pinprick Cerebellar system: No nystagmus or dysmetria Deep tendon reflexes: +2 at the left brachioradialis and left biceps, absent at the right brachioradialis, +1 at the right biceps, absent at the triceps bilaterally, +1 at the knees bilaterally, absent at the ankles bilaterally; plantar responses are downward bilaterally Motor: Strength 5/5 in the biceps bilaterally, abductor pollicis brevis muscles bilaterally, first dorsal interosseous muscles bilaterally, triceps bilaterally,deltoid bilaterally, quadriceps bilaterally and foot dorsiflexors bilaterally; no drift Sensory: Decreased vibration is noted in the left foot; there are no deficits tovibration in the right foot; there are no deficits to soft touch or pinprick Gait: Unremarkable HEENT: Normocephalic; atraumatic; tympanic membranes are clear Neck: No bruits Heart: Regular rhythm and rate Extremities: No cyanosis or edema; straight leg raise is negative bilaterally; right dorsalis pedis pulse is +2; left posterior tibial and left dorsalis pedis pulses are nonpalpable; Tinel's sign is negative at the wrist and positive at the elbows Supplemental Info EMG/nerve conduction studies of the lower extremities (07/17/2023): Nerve conduction studies summary: The left sural distal latency was prolonged bilaterally. The left superficial peroneal SNAP was absent. The left peroneal-EDB CMAP distal latency is prolonged with reduced amplitude diffusely. The left peroneal motor conduction velocities reduced diffusely. Needle examination summary: Needle examination of selected muscles of the bilateral lower extremities demonstrated a higher proportion of motor unit action potentials with reduced recruitment, increased amplitudes, increased duration and polyphasia in the bilateral tibialis anterior and peroneus longus muscles bilaterally. Impression: This electrodiagnostic study is suggestive of a nonlocalized left peroneal mononeuropathy. Chronic neurogenic changes seen in the bilateral tibialis anterior and peroneus longus muscles can be seen in the setting, but are not definitively diagnostic, of bilateral L5 radiculopathies. There is no definite electrodiagnostic evidence of a large fiber peripheral polyneuropathy. EMG/nerve conduction studies of the upper extremities (07/23/2023): Electrodiagnostic findings: Median motor nerve demonstrates normal distal latency, amplitude and conduction velocity bilaterally. Ulnar motor response demonstrates normal distal latency, amplitude and conduction velocity bilaterally. Normal median and ulnar F waves. Needle EMG testing was performedin the upper limbs. All muscles tested showed no evidence of denervation with normal motor unit action potentials. Electrodiagnostic impression: This is a normal electrodiagnostic study of the upper limbs. There is no electrodiagnostic evidence for peripheral neuropathy, including carpal tunnel or cubital tunnel syndrome. There is no electrodiagnostic evidence for cervical radiculopathy. Head MRI with and without contrast (09/02/2023): Findings: Cerebrum: There are few nonspecific periventricular foci of abnormal signal on FLAIR imaging. Possibility remote infectious, inflammatory or demyelinating disease is raised. Cerebellum: No edema, hemorrhage, mass, acute infarction, or inappropriate atrophy. Brainstem: No edema, hemorrhage, mass, acute infarction, or inappropriate atrophy. CSF spaces: Ventricles, cisterns, and sulci are appropriate for age. No hydrocephalus, subarachnoid hemorrhage, or mass. Skull: No mass or other significant visible lesion. Sinuses: Limited views demonstrate no significant mucosal thickening or fluid. Orbits: Limited views are unremarkable. Other: No abnormal meningeal or parenchymal enhancement Conclusion: 1. Nonspecific foci of abnormal signal on FLAIR imaging are present raising thepossibility of remote infectious or inflammatory disease versus demyelinating disease. Assessment and Plan Assessment and Plan (1) Cerebrovascular disease: Status: Acute (2) Paresthesias: Status: Acute (3) Low back pain: Status: Acute (4) Neck pain: Status: Acute (5) Neuropathy: Status: Acute (6) Lumbar radiculopathy: Status: Acute Orders: Orders Spine Cervical (Routine) 12/13/24 M54.2 - Cervicalgia, R20.2 - Paresthesia of skin Spine Lumbar (Routine) 12/13/24 M54.16 - Radiculopathy, lumbar region, M54.50 - Low back pain, unspecified, R20.2 - Paresthesia of skin Ankle Brachial Index 12/13/24 I73.9 - Peripheral vascular disease, unspecified,R09.89 - Other specified symptoms and signs involving the circulatory and respiratory systems NCS and/or EMG - Bilateral Lower 12/13/24 G62.9 - Polyneuropathy, unspecified, M54.16 - Radiculopathy, lumbar region, M54.50 - Low back pain, unspecified, R20.2 - Paresthesia of skin NCS and/or EMG - Bilateral Upper 12/13/24 M54.2 - Cervicalgia, R20.2 - Paresthesia of skin Vitamin D 1,25-Dihydroxy 12/13/24 G62.9 - Polyneuropathy, unspecified, R20.2 - Paresthesia of skin VITAMIN B6 12/13/24 G62.9 - Polyneuropathy, unspecified, R20.2 - Paresthesia ofskin Vitamin B12 12/13/24 G62.9 - Polyneuropathy, unspecified, R20.2 - Paresthesia of skin Vitamin B1, Thiamine 12/13/24 G62.9 - Polyneuropathy, unspecified, R20.2 - Paresthesia of skin Folates, RBC 12/13/24 G62.9 - Polyneuropathy, unspecified, R20.2 - Paresthesia of skin Thyroid Stim Hormone (TSH) 12/13/24 G62.9 - Polyneuropathy, unspecified, R20.2 - Paresthesia of skin CBC-Complete Blood Cnt No Diff 12/13/24 G62.9 - Polyneuropathy, unspecified, R20.2 - Paresthesia of skin Comprehensive Metabolic Profil 12/13/24 G62.9 - Polyneuropathy, unspecified, R20.2 - Paresthesia of skin [place] Lambda Light Chains 12/13/24 G62.9 - Polyneuropathy, unspecified, R20.2 -Paresthesia of skin Magnesium 12/13/24 R20.2 - Paresthesia of skin MARIA VICTORIA w/ Reflex Mult Confirm 12/13/24 I67.9 - Cerebrovascular disease, unspecified Lipid Profile 12/13/24 I67.9 - Cerebrovascular disease, unspecified Erythrocyte Sed Rate 12/13/24 I67.9 - Cerebrovascular disease, unspecified Plan Details Additional Comments: The patient presents with various symptoms. She has been experiencing paresthesias affecting her arms, legs and torso. The paresthesias are most prominent in the lower extremities and are more prominent at night. She describeshaving a sharp and tingling pain that extends from the feet to the thighs. She has occasional pain described as momentary stinging discomfort affecting the torso, arms and legs. She has chronic neck pain and low back pain. She also experiences occasional intermittent radicular type pain extending from the hips to the shins. She experiences left gluteal claudication when she ambulates. She smokes tobacco. Tinel's sign is positive at the elbows raising concern for a bilateral cubital tunnel syndrome. - She will be evaluated further with EMG/nerve conduction studies of the upper extremities to assess for radiculopathy and/or entrapment neuropathies. - EMG/nerve conduction studies of the lower extremities will be ordered to assess for polyneuropathy and/or lumbar radiculopathies. - A cervical spine MRI will be ordered. - A lumbar spine MRI will be ordered. - A B12, thiamine, folate, vitamin D, pyridoxine, TSH, magnesium, CBC, CMP, and serum free light chains will be checked. - I will have her switch from citalopram to duloxetine 30 mg nightly. She has depression and anxiety. She takes citalopram. She also takes alprazolam. - Due to the presence of her neuropathic symptoms, citalopram will be switched to duloxetine 30 mg nightly and I hope that this will be of benefit forher depression and anxiety. Her head MRI from 2023 revealed white matter changes. The images are not available for review. I suspect that these are asymptomatic and due to chronic small vessel ischemic disease. My suspicion is low for multiple sclerosis though this possibility cannot be wholly excluded at this time. - Her head MRI images will be obtained for review. A follow-up head MRI willbe considered after review of the study. - A lipid profile, ESR, and MARIA VICTORIA will be checked. Left lower extremity pedal pulses are not palpable. She describes having left gluteal region claudication when she walks. - ABIs will be ordered. I will have her return for reassessment in 3 months. Thank you for this consultation. Intake Vital Signs 12/13/24 08:59 Weight: 125 lb 10 oz BP 164/88 H Blood Pressure Location Lt brachial Position Sitting Respiration 17 Pulse 82 Pulse Source Monitor Temp 98.4 F Temp Source Temporal Pulse Oximetry (%) 98 Oxygen Delivery Method room air Intake Visit Reasons: Establish Care for neuropathy Chief Complaint: Est Care Vinyl Dipper Required: No Accompanied by: Sister Allergies doxycycline Adverse Reaction (Severe, Verified 12/13/24 09:26) Rash gabapentin Adverse Reaction (Severe, Verified 12/13/24 09:26) Other propofol Adverse Reaction (Severe, Verified 12/13/24 09:04) Rash Medications ?Medication ?Instructions ?Recorded ?Confirmed ?Type alprazolam 1 mg tablet (Xanax) 1 mg PO TID PRN 5 12/13/24 History citalopram 10 mg tablet 10 mg PO QDAY 12/13/2412/13 History cyclobenzaprine 10 mg tablet 10 mg PO TID PRN 12/13/24 12/13/24 History sodium chloride 1,000 mg soluble 1,000 mg PO QD-QID [place] N 12/13/24 12/13/24 History tablet triamcinolone acetonide 0.1 % 1 applic topical QDAY 12/13/24 History topical cream Have you fallen in the past year?: Yes Clinical Quality Measures Falls Risk Screening/Assistive Devices Have you fallen in the past year?: Yes Coding Level of Care Code Off vis,new,level 4 Diagnoses Cerebrovascular disease I67.9 Paresthesias R20.2 Low back pain M54.50 Neck pain M54.2 Neuropathy G62.9 Lumbar radiculopathy M54.16 12/14/24 0722 <Electronically signed by Megan shukla MD> Date _ Megan Farah MD Cosigner Signature: Date (if applicable) CC: Dr. Jose Salcedo MD ~ [facility] Work Phone: Reason for referral (narrative) Note Date & Type Note Facility Reason for referral (narrative) No reason for referral information available [facility] Work Phone: Summary Purpose Family History No Family History Records Found Breast Cancer Status:Active Comments:grandmo ther Cerebrovascular Accident Status:Active Comment s:Father. Colon Cancer Status:Active Comments:grandmo ther Coronary Artery Disease Status:Active Comments :Mother. Diabetes Mellitus Status:Active Comments:Fathe r. Sister. Hypertension Status:Active Comments:Mother. Breast Cancer Status:Active Comments:grandmo ther Cerebrovascular Accident Status:Active Comment s:Father. Colon Cancer Status:Active Comments:grandmo ther Coronary Artery Disease Status:Active Comments :Mother. Diabetes Mellitus Status:Active Comments:Fathe r. Sister. Hypertension Status:Active Comments:Mother. Breast Cancer Status:Active Comments:grandmo ther Cerebrovascular Accident Status:Active Comment s:Father. Colon Cancer Status:Active Comments:grandmo ther Coronary Artery Disease Status:Active Comments :Mother. Diabetes Mellitus Status:Active Comments:Fathe r. Sister. Hypertension Status:Active Comments:Mother. Breast Cancer Status:Active Comments:grandmo ther Cerebrovascular Accident Status:Active Comment s:Father. Colon Cancer Status:Active Comments:grandmo ther Coronary Artery Disease Status:Active Comments :Mother. Diabetes Mellitus Status:Active Comments:Fathe r. Sister. Hypertension Status:Active Comments:Mother. Breast Cancer Status:Active Comments:grandmo ther Cerebrovascular Accident Status:Active Comment s:Father. Colon Cancer Status:Active Comments:grandmo ther Coronary Artery Disease Status:Active Comments :Mother. Diabetes Mellitus Status:Active Comments:Fathe r. Sister. Hypertension Status:Active Comments:Mother. Breast Cancer Status:Active Comments:grandmo ther Cerebrovascular Accident Status:Active Comment s:Father. Colon Cancer Status:Active Comments:grandmo ther Coronary Artery Disease Status:Active Comments :Mother. Diabetes Mellitus Status:Active Comments:Fathe r. Sister. Hypertension Status:Active Comments:Mother. Breast Cancer Status:Active Comments:grandmo ther Cerebrovascular Accident Status:Active Comment s:Father. Colon Cancer Status:Active Comments:grandmo ther Coronary Artery Disease Status:Active Comments :Mother. Diabetes Mellitus Status:Active Comments:Fathe r. Sister. Hypertension Status:Active Comments:Mother. Breast Cancer Status:Active Comments:grandmo ther Cerebrovascular Accident Status:Active Comment s:Father. Colon Cancer Status:Active Comments:grandmo ther Coronary Artery Disease Status:Active Comments :Mother. Diabetes Mellitus Status:Active Comments:Fathe r. Sister. Hypertension Status:Active Comments:Mother. Breast Cancer Status:Active Comments:grandmo ther Cerebrovascular Accident Status:Active Comment s:Father. Colon Cancer Status:Active Comments:grandmo ther Coronary Artery Disease Status:Active Comments :Mother. Diabetes Mellitus Status:Active Comments:Fathe r. Sister. Hypertension Status:Active Comments:Mother. Breast Cancer Status:Active Comments:grandmo ther Cerebrovascular Accident Status:Active Comment s:Father. Colon Cancer Status:Active Comments:grandmo ther Coronary Artery Disease Status:Active Comments :Mother. Diabetes Mellitus Status:Active Comments:Fathe r. Sister. Hypertension Status:Active Comments:Mother. Breast Cancer Status:Active Comments:grandmo ther Cerebrovascular Accident Status:Active Comment s:Father. Colon Cancer Status:Active Comments:grandmo ther Coronary Artery Disease Status:Active Comments :Mother. Diabetes Mellitus Status:Active Comments:Fathe r. Sister. Hypertension Status:Active Comments:Mother. Breast Cancer Status:Active Comments:grandmo ther Cerebrovascular Accident Status:Active Comment s:Father. Colon Cancer Status:Active Comments:grandmo ther Coronary Artery Disease Status:Active Comments :Mother. Diabetes Mellitus Status:Active Comments:Fathe r. Sister. Hypertension Status:Active Comments:Mother. Breast Cancer Status:Active Comments:grandmo ther Cerebrovascular Accident Status:Active Comment s:Father. Colon Cancer Status:Active Comments:grandmo ther Coronary Artery Disease Status:Active Comments :Mother. Diabetes Mellitus Status:Active Comments:Fathe r. Sister. Hypertension Status:Active Comments:Mother. Breast Cancer Status:Active Comments:grandmo ther Cerebrovascular Accident Status:Active Comment s:Father. Colon Cancer Status:Active Comments:grandmo ther Coronary Artery Disease Status:Active Comments :Mother. Diabetes Mellitus Status:Active Comments:Fathe r. Sister. Hypertension Status:Active Comments:Mother. Breast Cancer Status:Active Comments:grandmo ther Cerebrovascular Accident Status:Active Comment s:Father. Colon Cancer Status:Active Comments:grandmo ther Coronary Artery Disease Status:Active Comments :Mother. Diabetes Mellitus Status:Active Comments:Fathe r. Sister. Hypertension Status:Active Comments:Mother. Breast Cancer Status:Active Comments:grandmo ther Cerebrovascular Accident Status:Active Comment s:Father. Colon Cancer Status:Active Comments:grandmo ther Coronary Artery Disease Status:Active Comments :Mother. Diabetes Mellitus Status:Active Comments:Fathe r. Sister. Hypertension Status:Active Comments:Mother. Breast Cancer Status:Active Comments:grandmo ther Cerebrovascular Accident Status:Active Comment s:Father. Colon Cancer Status:Active Comments:grandmo ther Coronary Artery Disease Status:Active Comments :Mother. Diabetes Mellitus Status:Active Comments:Fathe r. Sister. Hypertension Status:Active Comments:Mother. Breast Cancer Status:Active Comments:grandmo ther Cerebrovascular Accident Status:Active Comment s:Father. Colon Cancer Status:Active Comments:grandmo ther Coronary Artery Disease Status:Active Comments :Mother. Diabetes Mellitus Status:Active Comments:Fathe r. Sister. Hypertension Status:Active Comments:Mother. Breast Cancer Status:Active Comments:grandmo ther Cerebrovascular Accident Status:Active Comment s:Father. Colon Cancer Status:Active Comments:grandmo ther Coronary Artery Disease Status:Active Comments :Mother. Diabetes Mellitus Status:Active Comments:Fathe r. Sister. Hypertension Status:Active Comments:Mother. Breast Cancer Status:Active Comments:grandmo ther Cerebrovascular Accident Status:Active Comment s:Father. Colon Cancer Status:Active Comments:grandmo ther Coronary Artery Disease Status:Active Comments :Mother. Diabetes Mellitus Status:Active Comments:Fathe r. Sister. Hypertension Status:Active Comments:Mother. Breast Cancer Status:Active Comments:grandmo ther Cerebrovascular Accident Status:Active Comment s:Father. Colon Cancer Status:Active Comments:grandmo ther Coronary Artery Disease Status:Active Comments :Mother. Diabetes Mellitus Status:Active Comments:Fathe r. Sister. Hypertension Status:Active Comments:Mother. Breast Cancer Status:Active Comments:grandmo ther Cerebrovascular Accident Status:Active Comment s:Father. Colon Cancer Status:Active Comments:grandmo ther Coronary Artery Disease Status:Active Comments :Mother. Diabetes Mellitus Status:Active Comments:Fathe r. Sister. Hypertension Status:Active Comments:Mother. Breast Cancer Status:Active Comments:grandmo ther Cerebrovascular Accident Status:Active Comment s:Father. Colon Cancer Status:Active Comments:grandmo ther Coronary Artery Disease Status:Active Comments :Mother. Diabetes Mellitus Status:Active Comments:Fathe r. Sister. Hypertension Status:Active Comments:Mother. Breast Cancer Status:Active Comments:grandmo ther Cerebrovascular Accident Status:Active Comment s:Father. Colon Cancer Status:Active Comments:grandmo ther Coronary Artery Disease Status:Active Comments :Mother. Diabetes Mellitus Status:Active Comments:Fathe r. Sister. Hypertension Status:Active Comments:Mother. Breast Cancer Status:Active Comments:grandmo ther Cerebrovascular Accident Status:Active Comment s:Father. Colon Cancer Status:Active Comments:grandmo ther Coronary Artery Disease Status:Active Comments :Mother. Diabetes Mellitus Status:Active Comments:Fathe r. Sister. Hypertension Status:Active Comments:Mother. Breast Cancer Status:Active Comments:grandmo ther Cerebrovascular Accident Status:Active Comment s:Father. Colon Cancer Status:Active Comments:grandmo ther Coronary Artery Disease Status:Active Comments :Mother. Diabetes Mellitus Status:Active Comments:Fathe r. Sister. Hypertension Status:Active Comments:Mother. Breast Cancer Status:Active Comments:grandmo ther Cerebrovascular Accident Status:Active Comment s:Father. Colon Cancer Status:Active Comments:grandmo ther Coronary Artery Disease Status:Active Comments :Mother. Diabetes Mellitus Status:Active Comments:Fathe r. Sister. Hypertension Status:Active Comments:Mother. Breast Cancer Status:Active Comments:grandmo ther Cerebrovascular Accident Status:Active Comment s:Father. Colon Cancer Status:Active Comments:grandmo ther Coronary Artery Disease Status:Active Comments :Mother. Diabetes Mellitus Status:Active Comments:Fathe r. Sister. Hypertension Status:Active Comments:Mother. Breast Cancer Status:Active Comments:grandmo ther Cerebrovascular Accident Status:Active Comment s:Father. Colon Cancer Status:Active Comments:grandmo ther Coronary Artery Disease Status:Active Comments :Mother. Diabetes Mellitus Status:Active Comments:Fathe r. Sister. Hypertension Status:Active Comments:Mother. Breast Cancer Status:Active Comments:grandmo ther Cerebrovascular Accident Status:Active Comment s:Father. Colon Cancer Status:Active Comments:grandmo ther Coronary Artery Disease Status:Active Comments :Mother. Diabetes Mellitus Status:Active Comments:Fathe r. Sister. Hypertension Status:Active Comments:Mother. Breast Cancer Status:Active Comments:grandmo ther Cerebrovascular Accident Status:Active Comment s:Father. Colon Cancer Status:Active Comments:grandmo ther Coronary Artery Disease Status:Active Comments :Mother. Diabetes Mellitus Status:Active Comments:Fathe r. Sister. Hypertension Status:Active Comments:Mother. Breast Cancer Status:Active Comments:grandmo ther Cerebrovascular Accident Status:Active Comment s:Father. Colon Cancer Status:Active Comments:grandmo ther Coronary Artery Disease Status:Active Comments :Mother. Diabetes Mellitus Status:Active Comments:Fathe r. Sister. Hypertension Status:Active Comments:Mother. Breast Cancer Status:Active Comments:grandmo ther Cerebrovascular Accident Status:Active Comment s:Father. Colon Cancer Status:Active Comments:grandmo ther Coronary Artery Disease Status:Active Comments :Mother. Diabetes Mellitus Status:Active Comments:Fathe r. Sister. Hypertension Status:Active Comments:Mother. Breast Cancer Status:Active Comments:grandmo ther Cerebrovascular Accident Status:Active Comment s:Father. Colon Cancer Status:Active Comments:grandmo ther Coronary Artery Disease Status:Active Comments :Mother. Diabetes Mellitus Status:Active Comments:Fathe r. Sister. Hypertension Status:Active Comments:Mother. Breast Cancer Status:Active Comments:grandmo ther Cerebrovascular Accident Status:Active Comment s:Father. Colon Cancer Status:Active Comments:grandmo ther Coronary Artery Disease Status:Active Comments :Mother. Diabetes Mellitus Status:Active Comments:Fathe r. Sister. Hypertension Status:Active Comments:Mother. Breast Cancer Status:Active Comments:grandmo ther Cerebrovascular Accident Status:Active Comment s:Father. Colon Cancer Status:Active Comments:grandmo ther Coronary Artery Disease Status:Active Comments :Mother. Diabetes Mellitus Status:Active Comments:Fathe r. Sister. Hypertension Status:Active Comments:Mother. Breast Cancer Status:Active Comments:grandmo ther Cerebrovascular Accident Status:Active Comment s:Father. Colon Cancer Status:Active Comments:grandmo ther Coronary Artery Disease Status:Active Comments :Mother. Diabetes Mellitus Status:Active Comments:Fathe r. Sister. Hypertension Status:Active Comments:Mother. Breast Cancer Status:Active Comments:grandmo ther Cerebrovascular Accident Status:Active Comment s:Father. Colon Cancer Status:Active Comments:grandmo ther Coronary Artery Disease Status:Active Comments :Mother. Diabetes Mellitus Status:Active Comments:Fathe r. Sister. Hypertension Status:Active Comments:Mother. Breast Cancer Status:Active Comments:grandmo ther Cerebrovascular Accident Status:Active Comment s:Father. Colon Cancer Status:Active Comments:grandmo ther Coronary Artery Disease Status:Active Comments :Mother. Diabetes Mellitus Status:Active Comments:Fathe r. Sister. Hypertension Status:Active Comments:Mother. Breast Cancer Status:Active Comments:grandmo ther Cerebrovascular Accident Status:Active Comment s:Father. Colon Cancer Status:Active Comments:grandmo ther Coronary Artery Disease Status:Active Comments :Mother. Diabetes Mellitus Status:Active Comments:Fathe r. Sister. Hypertension Status:Active Comments:Mother. Breast Cancer Status:Active Comments:grandmo ther Cerebrovascular Accident Status:Active Comment s:Father. Colon Cancer Status:Active Comments:grandmo ther Coronary Artery Disease Status:Active Comments :Mother. Diabetes Mellitus Status:Active Comments:Fathe r. Sister. Hypertension Status:Active Comments:Mother. Breast Cancer Status:Active Comments:grandmo ther Cerebrovascular Accident Status:Active Comment s:Father. Colon Cancer Status:Active Comments:grandmo ther Coronary Artery Disease Status:Active Comments :Mother. Diabetes Mellitus Status:Active Comments:Fathe r. Sister. Hypertension Status:Active Comments:Mother. Breast Cancer Status:Active Comments:grandmo ther Cerebrovascular Accident Status:Active Comment s:Father. Colon Cancer Status:Active Comments:grandmo ther Coronary Artery Disease Status:Active Comments :Mother. Diabetes Mellitus Status:Active Comments:Fathe r. Sister. Hypertension Status:Active Comments:Mother. Breast Cancer Status:Active Comments:grandmo ther Cerebrovascular Accident Status:Active Comment s:Father. Colon Cancer Status:Active Comments:grandmo ther Coronary Artery Disease Status:Active Comments :Mother. Diabetes Mellitus Status:Active Comments:Vinicio r. Sister. Hypertension Status:Active Comments:Mother. Breast Cancer Status:Active Comments:grandmo ther Cerebrovascular Accident Status:Active Comment s:Father. Colon Cancer Status:Active Comments:grandmo ther Coronary Artery Disease Status:Active Comments :Mother. Diabetes Mellitus Status:Active Comments:Fatpraveen r. Sister. Hypertension Status:Active Comments:Mother. Breast Cancer Status:Active Comments:grandmo ther Cerebrovascular Accident Status:Active Comment s:Father. Colon Cancer Status:Active Comments:grandmo ther Coronary Artery Disease Status:Active Comments :Mother. Diabetes Mellitus Status:Active Comments:Fatpraveen r. Sister. Hypertension Status:Active Comments:Mother. Breast Cancer Status:Active Comments:grandmo ther Cerebrovascular Accident Status:Active Comment s:Father. Colon Cancer Status:Active Comments:grandmo ther Coronary Artery Disease Status:Active Comments :Mother. Diabetes Mellitus Status:Active Comments:Fatpraveen r. Sister. Hypertension Status:Active Comments:Mother. Breast Cancer Status:Active Comments:grandmo ther Cerebrovascular Accident Status:Active Comment s:Father. Colon Cancer Status:Active Comments:grandmo ther Coronary Artery Disease Status:Active Comments :Mother. Diabetes Mellitus Status:Active Comments:Fatpraveen r. Sister. Hypertension Status:Active Comments:Mother. Advance Directives No Advanced Directives Records FoundNo Advanced Directives Records FoundNo Advanced Directives Records FoundNo Advanced Directives Records FoundNo Advanced Directives Records FoundNo Advanced Directives Records Found Chief Complaint and Reason for Visit Chief Complaint BLE; NEUROPATHY BLE; NEUROPATHY BUE; NEUROPATHY BUE; NEUROPATHY Chief Complaint Admit Date Establish Care for neuropathy December 13, 2024 8:50am Reason for Visit Admit Date Cerebrovascular disease December 13, 2024 8:50am Low back pain December 13, 2024 8:50am Lumbar radiculopathy December 13 8:50am Neck pain December 13, 2024 8:50am Neuropathy December 13, 2024 8:50am Paresthesias December 13, 2024 8:50am Additional Source Comments INFORMATION SOURCE (unrecogn ized section and content) DATE CREATED AUTHOR 01/14/2019 [facility] DATE CREATED AUTHOR AUTHOR'S ORGANIZ ATION 03/04/2020 [facility] DATE CREATED AUTHOR AUTHOR'S ORGANIZ ATION 02/07/2022 [facility] ([place] DATE CREATED AUTHOR AUTHOR'S ORGANIZ ATION [facility] DATE CREATED AUTHOR AUTHOR'S ORGANIZ ATION 12/09/2024 [facility] DATE CREATED AUTHOR AUTHOR'S ORGANIZ ATION 01/04/2025 [facility] Care Teams (unrecognized sec tion and content) Team Status: Active Member Role Status Dates Dr. Jose Salcedo MD Family Provider Active Dr. Jose Salcedo MD Primary Care Provider Active Team Status: Active Member Role Status Dates Dr. Jose Salcedo MD Primary Care Provid er, Referring Provider, Other Provider Active Dr. Aj Julio MD Attending Provider Active Team Status: Active Member Role Status Dates Dr. Jose Salcedo MD Primary Care Provid er, Referring Provider, Other Provider Active Dr. Armen Rocha MD Attending Provider Active Team Status: Active Member Role Status Dates Dr. Jose Salcedo MD Primary Care Provid er, Attending Provider, Referring Provider Active Team Status: Inactive Member Role Status Dates Dr. Jose Salcedo MD Primary Care Provid er, Attending Provider, Referring Provider Active Team Status: Active Member Role/Relationship Status Dates Kulwant SUNSHINE, PA Primary care physician Active Team Status: Inactive Member Role/Relationship Status Dates Dr. Jose Salcedo MD Primary care physician Active Start: December 13, 2024 End: December 13, 2024 Dr. Jose Salcedo MD Referring Provider Active S tart: December 13, 2024 End: December 13, 2024 Dr. Megan Farah MD Attending physician Active Start: December 13, 2024 End: December 13, 2024 Goals (unrecognized section and content) Goals may be documented in a n alternate sectionGoals may be documented in an alternate section FOR RECORDS PERTAINING TO PATIENTS WHO ARE OR HAVE BEEN ENROLLED IN A CHEMICAL DEPENDENCY/SUBSTANCEABUSE PROGRAM, SOME INFORMATION MAY BE OMITTED. This clinical summary was aggregated from multiple sources. Caution should be exercised in using it in the provision of clinical care. This summary normalizes information from multiple sources, and as a consequence, information in this document may materially change the coding, format and clinical context of patient data. In addition, data may be omitted in some cases. CLINICAL DECISIONS SHOULD BE BASED ON THE PRIMARY CLINICAL RECORDS. [facility]. provides no warranty or guarantee of the accuracy or completeness of information in this document.
--- NOTE | 2025-01-06 08:30 | BD_ITS ---
PROCEDURE: DEXA BONE DENSITY STUDY 01/06/2025 REASON FOR EXAM: OLD T12 COMPRESSION FRACTURE F, age 59 y/o . Postmenopausal. TECHNIQUE: Procedure Code: BDDBD Modality: DX Procedure: DEXA BONE DENSITY STUDY COMPARISON: None FINDINGS: BMD and T-SCORES Lumbar spine: 0.772 g/cm2, T-score -2.5 Levels: L1 through L4 Left femoral neck: 0.536 g/cm2, T-score -2.8 Femoral neck comparison data not recommended for monitoring change. Left total hip: 0.600 g/cm2, T-score -2.8 Right femoral neck: 0.522 g/cm2, T-score -2.9 Femoral neck comparison data not recommended for monitoring change. Right total hip: 0.610 g/cm2, T-score -2.7 The World Health Organization has defined the following categories based on bone density: Normal bone density: T-score equal to or greater than -1.0 Osteopenia: T-score between -1.0 and -2.5 Osteoporosis: T-score equal to or less than -2.5 FRAX (or Comparable) Fracture Risk Assessment: 10 Year Probability of Fracture: Major Osteoporotic Fracture: 23% Hip Fracture: 9.2% (Note: FRAX is not to be reported in setting of normal range bone density, osteoporosis on DEXA, known history of osteoporosis, prior osteoporotic hip or vertebral fracture, or for any patient undergoing pharmacological treatment for bone loss.) The National Osteoporosis Foundation (NOF) recommends pharmacological treatment for patients with a FRAX 10-year risk of 3% or higher for a hip fracture, or 20% or higher for a major osteoporotic fracture, to prevent osteoporosis and reduce fracture risk. The patient does meet the pharmacological treatment recommendations for prevention of osteoporosis. BD/Dexa Bone Density Study IMPRESSION: OSTEOPOROSIS. Recommend follow-up as clinically warranted. Reading Location: [place] [id number]
[2025-01-10 15:08] LABS: Albumin 3.8 g/dL (2.9-4.4); Gamma Globulin 1.5 g/dL (0.4-1.8); Immunoglobulin A 314 mg/dL (87-352); Immunoglobulin G 1401 mg/dL (586-1602); Immunoglobulin M 149 mg/dL (26-217); PROEL- TOTAL PROTEIN 7.6 g/dL (6.0-8.5)
== END | disposition home or self-care (01) ==
PROVIDERS: PCP Physician Assistant Medical; Referring Provider Psychiatry & Neurology Neurology; Visit Provider Psychiatry & Neurology Neurology
DX: Z78.0 Asymptomatic menopausal state (principal); G62.9 Polyneuropathy, unspecified; Z87.81 Personal history of (healed) traumatic fracture
CPT/HCPCS: 36415; 77080; 82784; 84165; 86334; 86335

== ENCOUNTER → 2025-01-26 | Outpatient (CLI) | payer OTHER, SELFPAY ==
--- NOTE | 2025-01-26 15:13 | NEURO ---
NCS and/or EMG Patient Report Ordering Doctor: Otilio Soto DATE OF SERVICE: 01/26/25 Edith presents with complaints of numbness and tingling in both legs. Electrodiagnostic findings: Peroneal motor nerve demonstrates normal distal latency, amplitude and conduction velocity on the right side. Left peroneal motor nerve demonstrates normal distal latency with reduced amplitude and reduced conduction velocity. Tibial motor response are within normal limits bilaterally. Prolonged right tibial and right peroneal F–wave. Prolonged H–reflex bilaterally. Prolonged right sural latency. Absent left sural response. Prolonged left superficial peroneal and right superficial peroneal latencies are noted. Needle EMG testing was performed in the lower limbs. 1+ motor units of increased amplitude and duration noted bilaterally peroneus longus and tibialis anterior. Electrodiagnostic impression: This is an abnormal study in the lower limbs 1. 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 Comparison was made to a study done on August 06, 2023 and no significant changes were noted. Multi Select Codes Neurology Neurology Interp Codes: 28891-09 Musc test done w/n test comp (interp) (2) and 34457-10 Nrv cndj test 9-10 studies (interp)
== END | disposition home or self-care (01) ==
PROVIDERS: PCP Physician Assistant Medical; Referring Provider Psychiatry & Neurology Neurology; Visit Provider Psychiatry & Neurology Neurology
DX: M54.50 Low back pain, unspecified (principal); M54.16 Radiculopathy, lumbar region; R20.2 Paresthesia of skin; G62.9 Polyneuropathy, unspecified
CPT/HCPCS: 95886; 95911